=== PATIENT | female | born 1935 | race Hispanic/Latino ===

== ENCOUNTER 2017-02-28 08:58 | Inpatient (IN) | payer MEDICARE, MEDICAID ==
--- NOTE | 2017-02-28 09:32 | CT ---
NONCONTRAST HEAD CT: HISTORY: Aphagia. Right facial droop and weakness. The patient is a dialysis patient. COMPARISON: None. TECHNIQUE: A noncontrast head CT is performed from the skull base to the skull vertex. FINDINGS: No parenchymal hemorrhage. No extraaxial hematoma. No midline shift. Basilar cisterns are patent. Age appropriate brain volume. Cortical hidalgo white matter differentiation is preserved. Ventricle s and sulci are patent and symmetric. Chronic small vessel ischemic changes of the white matter are noted. There is atherosclerosis of th e carotid arteries. The calvarium is intact. Adequate aeration of the mastoid air cells. There is minimal bilateral ethmoid air cell opacification. There is near complete opacification of the visu alized left mastoid sinus. IMPRESSION: No acute intracranial process. The results of the study were discussed with Dr. Whatley on 02/28/2017 at 9:17 a.m. CODE ANGY POS: KAVON
[2017-02-28 09:45] LABS: Hematocrit 28.4 % (36.0-47.0); Mean Platelet Volume 7.1 fL (7.4-10.4); Red Blood Cell (RBC) Count 2.96 mill/uL (4.20-5.40); White Blood Cell (WBC) Count 3.9 thou/uL (4.8-10.8)
[2017-02-28 09:50] LABS: PTT 33.6 SEC (22.9-36.1); Prothrombin Time 14.4 SEC (12.0-14.7)
[2017-02-28 10:05] LABS: ALT (SGPT) 17 U/L (8-55); AST (SGOT) 29 U/L (5-34); Alkaline Phosphatase 104 U/L (40-150); Anion Gap 12 mmol/L (10-20); BUN (Urea Nitrogen) 27 mg/dL (9.8-20.1); Bilirubin, Total 0.7 mg/dL (0.2-1.2); Calc. Creatinine Clearance 0 mL/min (70-130); Calcium 8.2 mg/dL (7.8-10.44); Carbon Dioxide 30 mmol/L (23-31); Chloride 101 mmol/L (98-107); Estimated GFR-MDRD 8; Globulin 2.6 g/dL (2.4-3.5); Protein, Total 5.8 g/dL (6.0-8.3)
[2017-02-28 10:06] LABS: #Eosinphils 0.3 thou/uL (0.0-0.7); #Monocytes 0.3 thou/uL (0.11-0.59); #Neutrophils 2.4 thou/uL (1.40-6.50); %Basophils 0.2 % (0.0-1.0); %Eosinophils 8.5 % (0.0-10.0); %Lymphocytes 24.5 % (21.0-51.0); %Monocytes 6.3 % (0.0-10.0)
[2017-02-28 10:08] LABS: Troponin I Less than 0.010 ng/mL (< 0.028)
--- NOTE | 2017-02-28 11:04 | RAD ---
CHEST ONE VIEW: HISTORY: A 81-year-old female with aphagia, right facial droop, and weakness. The patient is a dialysis eduardo ent as well as a diabetic. Concern for stroke. FINDINGS: Monitor leads overly the chest. Minimal cardiomegaly. Some mild vascular congestion and increased linear and interstitial markings, some of which may well be chronic. Bony demineralization with adrián e deformity of the right humerus, proximally. No confluent pneumonia or overt edema. IMPRESSION: Minimal cardiomegaly and some mild vascular congestion without confluent pneumonia or overt edema. POS: SAMANTHAH
--- NOTE | 2017-02-28 12:22 | CON ---
DATE OF CONSULTATION: 02/28/2017 NEPHROLOGY CONSULTATION NOTE REASON FOR CONSULTATION: End-stage renal disease. HISTORY OF PRESENTING ILLNESS: This is a very pleasant 81-year-old female who had a stroke and was treated with tPA with full recovery of speech and weakness. The patient at this time denies headach e, numbness, tingling or weakness. Denies any nausea, vomiting or chest pain. PAST MEDICAL HISTORY: Significant for hypertension, end-stage renal disease, anemia, cholecystectom y, AV fistula and tunneled dialysis catheter, diabetes mellitus. HOME MEDICATIONS: List reviewed. HOSPITAL MEDICATIONS: Reviewed. ALLERGIES: Reviewed. REVIEW OF SYSTEMS: A 15-point review of systems was performed and was negative except for positives noted above. GENERAL: Weakness- HEAD: Headache- NECK: No swelling or lumps. NOSE: No epistaxis or discharge. EYES: No diplopia or pain. RESPIRATORY: Dyspnea- CARDIOVASCULAR: Chest pain- GASTROINTESTINAL: Nausea- /NAVY SENIOR OFFICER: Hematuria- MUSCULOSKELETAL: No joint pain. NEUROPSYCHIATIC SYSTEMS: No suicidal ideation. No ideation. SKIN: Denies any rash or ulcer. CONSTITUTIONAL: No fever or chills. PHYSICAL EXAMINATION: GENERAL: Patient is awake, alert. VITAL SIGNS: Afebrile, pulse 70, breathing at 16, blood pressure 155/70. GENERAL APPEARANCE AND MENTAL STATUS: Fair. HEAD/NECK: Normocephalic. Atraumatic. EYES: EOMI. No deformity. EARS: Clear. No ulcers. NOSE: Intact. No lesions. MOUTH: Clear. No discharge. THROAT: Clear. No exudate. LUNGS: Clear. No crackles. CARDIAC: S1, S2. No rub. ABDOMEN: Benign. BS+. GENITALIA/RECTUM: Jarrett absent. BACK/EXTREMITIES: Edema 0+ Ulcer- NEUROLOGICAL: Alert and motor intact. SKIN: Rash- Bruise- LYMPHATICS: Edema- Ulcer- LABORATORY DATA: Potassium is 3.6 and hemoglobin is 9.1. ASSESSMENT AND RECOMMENDATIONS: 1. Stage 6 chronic kidney disease. No indication for dialysis. 2. Hypertension, stable. 3. Anemia, stable. We will plan dialysis tomorrow gently. 4. Please note the patient has cerebrovascular accident with recovery management per primary team.
[2017-02-28 12:33] VITALS: BMI 21.9
[2017-02-28] MEDS ORDERED: Artificial Tear Sol 15 ML BOT EA EYE PRN (12:49)
--- NOTE | 2017-02-28 13:23 | HP ---
DATE OF ADMISSION: 02/28/2017 PRIMARY CARE PHYSICIAN: Evelyn Rees M.D. CHIEF COMPLAINT: Stroke-like symptoms. CODE STATUS: FULL CODE. SURROGATE DECISION-MAKER: The patient makes her own decisions with the help of her family. HISTORY OF PRESENT ILLNESS: The patient is a 81-year-old female with hypertension, diabetes mellitu s type 2, end-stage renal disease on hemodialysis, who presented to the hospital with sudden onset o f stroke-like symptoms that started around 8:30 a.m. She started having double vision along with ri ght-sided weakness. Her NIH in the emergency room was around 10. She had difficulty answering ques tions, along with expressive aphasia. She also had a facial droop. Initial CT scan in the emergenc y room was negative for acute findings. She underwent a CT angiogram of the head and neck that was essentially negative. She received tPA in the emergency room. At the time of my interview, the katherine tee's NIH is 1. She denies any double vision, blurring of vision at this time. She has some diffi culty opening her right eye. She denies any new focal deficit at this time. No chest pain, shortne ss of breath, palpitations, seizure or headache reported. No recent trauma reported. PAST MEDICAL HISTORY: 1. End-stage renal disease on hemodialysis followed by Dr. Merlos. 2. Diabetes mellitus type 2. 3. Hypertension. 4. Chronic anemia. 5. Mild dementia. 6. Gait instability. 7. History of fall. PAST SURGICAL HISTORY: 1. Dialysis access. 2. Cholecystectomy in 2005. 3. Eye surgeries. ALLERGIES: The patient is allergic to Tradjenta. CURRENT HOME MEDICATIONS: The patient does not remember any of her home medications. We will try t o obtain an accurate list of medications from the pharmacy. It is unclear whether she is on aspirin . SOCIAL HISTORY: The patient currently lives at home with her family. She denies any history of smo peggy, alcohol or drug use. FAMILY HISTORY: High blood pressure and diabetes in several family members. Father with heart dise ase. REVIEW OF SYSTEMS: The following complete review of systems was negative, unless otherwise mentione d in the HPI or below: Constitutional: Weight loss or gain, ability to conduct usual activities. Skin: Rash, itching. Eyes: Double vision, pain. ENT/Mouth: Nose bleeding, neck stiffness, pain, tenderness. Cardiovascular: Palpitations, dyspnea on exertion, orthopnea. Respiratory: Shortness of breath, wheezing, cough, hemoptysis, fever or night sweats. Gastrointestinal: Poor appetite, abdominal pain, heartburn, nausea, vomiting, constipation, or diar dirk. Genitourinary: Urgency, frequency, dysuria, nocturia. Musculoskeletal: Pain, swelling. Neurologic/Psychiatric: Anxiety, depression. Allergy/Immunologic: Skin rash, bleeding tendency. PHYSICAL EXAMINATION: VITAL SIGNS: Showed temperature of 97.4, respiration 19, pulse of 60, blood pressure 150/59 with O2 saturation 97% on room air. GENERAL: A 81-year-old female in no apparent distress. Denies any pain. HEENT: Head, atraumatic and normocephalic. Sclerae are anicteric. Moist mucous membranes. No ora l lesion. NECK: Supple, no JVD, no carotid bruit. LUNGS: Clear to auscultation bilaterally. HEART: S1, S2 present. Regular rate and rhythm. 2/6 systolic murmur over the mitral area. ABDOMEN: Soft, nontender, bowel sounds present. EXTREMITIES: No edema or calf tenderness. NEUROLOGIC: Cranial nerves II-XII were normal on examination. Power was 5/5 in all extremities. F neuwg-nq-fqjy and fflx-bw-vbov test was normal. Sensation to touch was normal bilaterally. PSYCHIATRY: Alert, awake, and oriented x3. SKIN: Warm and dry. LYMPH NODES: No palpable lymph nodes in the neck. PERIPHERAL VASCULAR: Radial pulses palpable bilaterally. MUSCULOSKELETAL: No joint swelling or tenderness. SKIN: Warm and dry. LABORATORY FINDINGS: CBC showed WBC 3.9, hemoglobin 9.5, hematocrit 28.4, and platelet 118. PT, INR, PTT normal range. BUN 27, creatinine 5.23 with potassium 3.6, albumin of 3.2. Troponins were normal. Chest x-ray by my review was negative for infiltrate. EKG by my review showed normal sinus rhythm w ith nonspecific ST-T wave changes. IMPRESSION: 1. Acute cerebrovascular accident status post tPA. 2. End-stage renal disease on hemodialysis. 3. Diabetes mellitus type 2. 4. Hypertension. 5. Dementia. 6. History of fall/gait instability. 7. Hyperparathyroidism. 8. Chronic anemia, probably secondary to renal insufficiency. 9. Mild thrombocytopenia. 10. Mild protein-calorie malnutrition. PLAN: The patient will be monitored in the Intensive Care Unit. Post-tPA protocol will be activate d. Neurology will be consulted. We will get echocardiogram. CT angiogram of the neck was done, re port is pending at this time. CTA of the head was normal. We will get an MRI of the brain. We koby l start antiplatelet agent 24 hours after the tPA. It is unclear whether the patient is on aspirin or any other antiplatelet agent. We will get frequent neuro checks. Insulin sliding scale. Nephro logy consult for dialysis management. Plan of care was discussed with the patient. She stated understanding. We will discuss the plan wi th the family when they arrive.
[2017-02-28] MEDS ORDERED: Senokot 8.6 MG TAB PO PRN (14:02)
[2017-02-28] MEDS ORDERED: Bisacodyl 10 MG SUPP PR PRN (14:02)
[2017-02-28] MEDS ORDERED: Ondansetron ODT 4 MG TAB PO PRN (14:02)
[2017-02-28] MEDS ORDERED: Ondansetron HCl/PF 4 MG/2 ML Vial IVP PRN (14:02)
[2017-02-28] MEDS ORDERED: Labetalol HCl 100 MG/20 ML VIAL SLOW IVP PRN (14:11)
[2017-02-28] MEDS ORDERED: Dextrose 50% Abboject 50 ML SYRINGE SLOW IVP PRN (14:14)
[2017-02-28] MEDS ORDERED: Dextrose 5% in Water 1,000 ML IV PRN (14:14)
[2017-02-28] MEDS ORDERED: Insulin Regular 300 UNITS/3 ML VIAL SC PRN ×2 (14:14)
[2017-02-28] MEDS ORDERED: Eucerin (Mineral Oil/Petrolatum,White) 30 gm Jar TOP PRN (14:15)
[2017-02-28] MEDS ORDERED: Nitroglycerin 2% Ointment 1 INCH/1 GM Packet TOP PRN (14:15)
[2017-02-28] MEDS ORDERED: Polyethylene Glycol 3350 17 GM Packet PO PRN (14:15)
[2017-02-28] MEDS ORDERED: Loratadine 10 MG TAB PO PRN (14:15)
[2017-02-28] MEDS ORDERED: hydrALAZINE 20 MG/ML VIAL SLOW IVP PRN (14:15)
[2017-02-28] MEDS ORDERED: ISOVUE-370 76%-LOCM 1 ML ONE (15:23)
--- NOTE | 2017-02-28 19:05 | CON ---
DATE OF SERVICE: 02/28/2017 SERVICE: Pulmonary Medicine. REASON FOR CONSULTATION: ICU patient. HISTORY OF PRESENT ILLNESS: The patient is a 81-year-old female with past medical history significant for essentially nothing other than end-stage renal disease and hypertension. She is in her usual state of health when she had an abrupt onset of neurologic changes. It affected the right side of her body and speech. She presented to the emergency department where she was given tPA. A fter roughly an hour, she had full resolution of the symptoms. She currently denies any shortness o f breath, fevers, chills, nausea, vomiting or diarrhea. She typically dialyzes today, but this will be postponed for 24 hours while she recovers from this acute process. PAST MEDICAL HISTORY: 1. End-stage renal disease, on hemodialysis Sunday, Sunday, and Sunday. 2. Type 2 diabetes mellitus. 3. Hypertension. 4. Chronic anemia. 5. Dementia, mild. 6. History of multiple falls. PAST SURGICAL HISTORY: 1. Dialysis access. 2. Cholecystectomy in 2005. 3. Eye surgeries, multiple. FAMILY HISTORY: Noncontributory. SOCIAL HISTORY: Negative for tobacco, alcohol or illicit drug use. She lives with her family at [facility]. She has no exposure to chemicals, dust, or asbestos. ALLERGIES: TRADJENTA. MEDICATIONS: List of inpatient medications was reviewed. No updates were made at this time. REVIEW OF SYSTEMS: General, head, ears, eyes, nose, throat, cardiovascular, respiratory, GI, , mu sculoskeletal, neurologic and skin is negative except as mentioned in the HPI. PHYSICAL EXAMINATION: VITAL SIGNS: Afebrile, pulse 61, blood pressure 109/40, respirations 15, and saturation 99% on room air. GENERAL: Patient is awake, alert, in no apparent distress. LUNGS: Excellent air entry with no prolonged expiratory phase, wheezing or crackles. HEART: Normal rate, regular. ABDOMEN: Soft, nontender, nondistended, bowel sounds positive. MUSCULOSKELETAL: No cyanosis or clubbing. No pitting in the bilateral lower extremities. NEUROLOGIC: Grossly nonfocal. LABORATORY DATA: WBC 3.9, hemoglobin 9.5, and platelets 118,000. Differential remains normal. INR 1.1. Basic metabolic profile and liver function studies are unremarkable except for creatinine of 5.23. Cardiac enzymes x1 are negative. Glucose falls within the normal limits. IMAGIN. Chest x-ray demonstrates no acute cardiopulmonary abnormality. 2. CT of the brain demonstrates no evidence of acute intracranial abnormality. Certainly no blood. 3. CT of the [place] demonstrates no acute intracranial process. ASSESSMENT: 1. Stroke, status post tPA administration. 1. End-stage renal disease. 2. Dementia. PLAN: The patient will remain in the ICU for observation for a period of 24 hours. Neuro checks wi ll be done very frequently. Pulmonary or Critical Care will continue to follow while she remains in this location. At this point, there is no need for aggressive maneuvers like intubation.
[2017-02-28] MEDS: Docusate 100 MG CAP PO SCH (20:01)
[2017-02-28] MEDS: Famotidine 20 MG TAB PO SCH (20:01)
[2017-02-28] MEDS ORDERED: FLU VACC TS2017-18 (>65YR) 0.5 ML SYRINGE IM ONE (21:00)
[2017-02-28] MEDS: Acetaminophen 325 MG TAB PO PRN (21:03)
--- NOTE | 2017-03-01 06:11 | CON ---
DATE OF CONSULTATION: 02/28/2017 REFERRING PROVIDER: Dr. Kenton [facility]. REASON FOR CONSULTATION: Acute onset of expressive aphasia and right-sided weakness, stroke alert w as initiated. HISTORY OF PRESENT ILLNESS: Ms. Mistry is a 81-year-old female who has been consulted f or evaluation of acute onset of expressive aphasia and right-sided weakness, stroke alert was initia janey. I had initially received a phone call from the ER physician, Dr. Matthew Whatley Jr. He was menti oned to me at that time that the patient was supposed to be due for dialysis on today around 8:30 in the morning. She was noted by family members to have sudden onset of expressive aphasia and right- sided weakness for which she was brought to the [facility]. After arrival here, her stroke scale was noted to be 9. According to the ER physician on his repeat exam, her NIH stroke sc ginna was 4 with mild expressive aphasia. He also mentioned that when the patient's blood pressure bhandari d dropped somewhat, her NIH stroke scale did get worse. Patient has no prior history of stroke. It was felt that patient had met all the exclusion and inclusion criteria for the tPA and the tPA was administered after the CT scan of the head was being negative and was found to be negative for acute intracranial abnormality. PAST MEDICAL HISTORY: Significant for hypertension; diabetes; end-stage renal disease, on dialysis; chronic anemia; mild dementia; gait instability; history of fall. PAST SURGICAL HISTORY: Significant for dialysis access placement, cholecystectomy, eye surgeries. CURRENT MEDICATIONS: Please review MAR. ALLERGIES: Includes TRADJENTA. SOCIAL HISTORY: She currently lives with her family. She does not smoke cigarettes or use alcohol or use illicit drugs. FAMILY HISTORY: Significant for high blood pressure and diabetes in several family members. REVIEW OF SYSTEMS: As mentioned in the HPI, otherwise negative. PHYSICAL EXAMINATION: VITAL SIGNS: Blood pressure of 154/66, pulse of 63, temperature of 98.5, respirations of 20, O2 sat urations of 95% on room air. GENERAL: Well-developed, well-nourished female, in no apparent distress. RESPIRATORY: Clear to auscultation bilaterally. CARDIOVASCULAR: Regular rate and rhythm. NEUROLOGIC: NIH stroke scale on my evaluation is noted to be 0. There is a language barrier as she does not speak Lithuanian; however, according to nurse her family had did mention that his speech was back to her normal self. Cranial nerves: Pupils are 3 mm and reactive. Visual humphrey are full to threat. Extraocular muscles are intact. Face is symmetric. Motor exam showed normal tone and bulk with a 5/5 strength in both upper and lower extremities. There is no pronator drift noted. Sensor y: Sensation appears intact. Coordination intact to equelp-gdtu-rnycld tapping bilaterally. LABORATORY DATA: Reviewed, which included CBC, coag panel, CMP, which is significant for WBC of 3.9 , hemoglobin 9.5, hematocrit of 28.4. BUN of 27, creatinine of 5.23. IMAGING STUDIES: CT of the head without contrast was reviewed, which showed no acute intracranial a bnormality. CT angiogram of the head and neck were reviewed, which showed no acute intracranial or extracranial vascular abnormality. IMPRESSION: Acute left ischemic infarct, status post IV tPA. At this time, I would recommend continuing current medical management. I would require holding off on any antiplatelets or anticoa gulation therapy for at least 24 hours post-tPA. I will also recommend consulting PT, OT, and speec h therapy. I will obtain an MRI of the brain without contrast in the morning tomorrow. Continue stein pportive care. Thank you for consultation.
[2017-03-01] MEDS: Acetaminophen 325 MG TAB PO PRN ×2 (08:11→18:34)
[2017-03-01] MEDS: Famotidine 20 MG TAB PO SCH ×2 (08:11→20:47)
[2017-03-01] MEDS: Docusate 100 MG CAP PO SCH ×2 (08:12→20:47)
--- NOTE | 2017-03-01 10:38 | PRG ---
DATE OF SERVICE: 03/01/2017 SUBJECTIVE: This 81-year-old female being seen for end-stage renal disease. Patient denies any [place], vomiting or chest pain. PHYSICAL EXAMINATION: GENERAL: Patient is awake, alert. VITAL SIGNS: Afebrile, pulse 62, breathing at 16, blood pressure 153/54. GENERAL APPEARANCE AND MENTAL STATUS: Fair. HEAD/NECK: Normocephalic. Atraumatic. EYES: EOMI. No deformity. EARS: Clear. No ulcers. NOSE: Intact. No lesions. MOUTH: Clear. No discharge. THROAT: Clear. No exudate. LUNGS: Clear. No crackles. CARDIAC: S1, S2. No rub. ABDOMEN: Benign. BS+. GENITALIA/RECTUM: Jarrett absent. BACK/EXTREMITIES: Edema 0+ Ulcer- NEUROLOGICAL: Alert and motor intact. SKIN: Rash- Bruise- LYMPHATICS: Edema- Ulcer- LABORATORY DATA: Hemoglobin is 9.5 yesterday, no labs today. ASSESSMENT AND RECOMMENDATIONS: 1. Stage 6 chronic disease. We will plan hemodialysis based on labs today. 2. Hypertension, stable. 3. Anemia. We will check hemoglobin 4. Status post cerebrovascular accident.
--- NOTE | 2017-03-01 10:57 | PRG ---
DATE OF SERVICE: 03/01/2017 SERVICE: Pulmonary Medicine. INTERVAL HISTORY: The patient is doing fantastic from a respiratory standpoint. She denies any fev ers, chills, nausea or vomiting. There were no overnight events. She has no specific complaints th is morning. She has been up out of bed and is looking forward to getting out of ICU. PHYSICAL EXAMINATION: VITAL SIGNS: Afebrile, pulse 62, blood pressure 153/54, respirations 16, saturation 99% on room air . GENERAL: The patient is awake, alert, no apparent distress. LUNGS: Excellent air entry with no prolonged expiratory phase, wheezing, rhonchi or crackles. HEART: Normal rate, regular. ABDOMEN: Soft, nontender, nondistended. Bowel sounds positive. MUSCULOSKELETAL: No cyanosis or clubbing. No pitting in the bilateral lower extremities. NEUROLOGIC: Grossly nonfocal. She has a little bit of ptosis on the right, but she has had multipl e eye surgeries on that side, apparently this is chronic. LABORATORY DATA: Blood sugars ranged from 75-126. IMAGING: Echocardiogram demonstrates normal ejection fraction. There is no evidence of PFO, intrac ardiac thrombi, or masses. ASSESSMENT: 1. Cerebrovascular accident, status post tPA administration roughly 24 hours ago. 2. End-stage renal disease. 3. Dementia. PLAN: At this point, the patient is stable for transition out of the ICU to the floor. Pulmonary w ill continue to follow for 1 additional day. She did not suffer any complications associated with t PA administration.
[2017-03-01 11:48] LABS: Hematocrit 29.2 % (36.0-47.0)
[2017-03-01 11:49] LABS: #Eosinphils 0.4 thou/uL (0.0-0.7); #Lymphocytes 1.6 thou/uL (1.20-3.40); #Monocytes 0.3 thou/uL (0.11-0.59); #Neutrophils 3.2 thou/uL (1.40-6.50); %Basophils 0.7 % (0.0-1.0); %Eosinophils 7.9 % (0.0-10.0); %Monocytes 5.4 % (0.0-10.0); Hematocrit 28.9 % (36.0-47.0); Mean Platelet Volume 7.4 fL (7.4-10.4); Red Blood Cell (RBC) Count 3.06 mill/uL (4.20-5.40); White Blood Cell (WBC) Count 5.6 thou/uL (4.8-10.8)
[2017-03-01 12:09] LABS: Anion Gap 10 mmol/L (10-20); Anion Gap 11 mmol/L (10-20); BUN (Urea Nitrogen) 34 mg/dL (9.8-20.1); BUN/Creatinine Ratio 5.63; Calc. Creatinine Clearance 6 mL/min (70-130); Calcium 8.2 mg/dL (7.8-10.44); Carbon Dioxide 29 mmol/L (23-31); Carbon Dioxide 30 mmol/L (23-31); Chloride 99 mmol/L (98-107); Cholesterol 118 mg/dl (< 200 Desired); Estimated GFR-MDRD 7; LDL Cholesterol, Calculated 60 mg/dL; Phosphorus 4.1 mg/dL (2.3-4.7)
[2017-03-01] MEDS: Aspirin 325 mg Enteric Coated Tablet PO SCH (13:41)
--- NOTE | 2017-03-01 14:50 | MRI ---
MRI BRAIN WITHOUT CONTRAST: DATE: 03/01/17 HISTORY: Right facial droop and weakness. FINDINGS: No restricted diffusion is seen. No evidence of acute infarct, acute hemorrhage, midline shift, or abnormal extra-axial fluid collections are seen. There are a few foci of T2 prolongation in the francisco j ventricular white matter consistent with mild chronic small vessel ischemic disease. A small focus o f decreased intensity in the left thalamus is consistent with hemosiderin representing old hemorrhag e. Hemosiderin staining due to remote hemorrhage is also seen in the left posterior parietal lobe. T here is mucosal disease in the paranasal sinuses and fluid in the left mastoid air cells. IMPRESSION: No evidence of acute intracranial process. POS: [facility]
[2017-03-01] MEDS: cloNIDine 0.1 MG TAB PO PRN ×2 (18:51→23:20)
--- NOTE | 2017-03-01 19:54 | PRG ---
DATE OF SERVICE: 03/01/2017 SUBJECTIVE: Ms. Mistry is a pleasant 81-year-old female who presented with the acute on set of right-sided weakness and aphasia. She is status post IV TPA. Today, her daughter is present at bedside who reports that her symptoms have almost completely resolved. She is talking more kalen rly. She does not have any numbness, tingling or weakness. She has not complained of any headache, chest pain, palpitation, lightheadedness or dizziness. PHYSICAL EXAMINATION: VITAL SIGNS: Blood pressure of 193/70, pulse of 64, temperature of 97.7, respirations of 16, O2 sat s of 96% on room air. GENERAL: Well-developed, well-nourished female in no apparent distress. RESPIRATORY: Clear to auscultation bilaterally. CARDIOVASCULAR: Regular, mild wheezing noted in both sides. NEUROLOGIC: Mental status: The patient is awake, alert, oriented x3. Speech and language appears normal. Cranial nerves: Pupils are 3 mm and reactive. Visual humphrey are full to threat. Extraocu lar muscles are intact. Face is symmetric. Motor exam showed normal tone and bulk with 5/5 strengt h in both upper and lower extremities. LABORATORY DATA: Reviewed, which included CBC, BMP, lipid profile, coag panel, which is significant for hemoglobin 9.7, hematocrit of 28.9. Sodium of 135, BUN of 34, creatinine of 6.14, total choles terol 118, LDL of 60, HDL of 42, and triglycerides of 82, otherwise unremarkable. IMAGING STUDIES: MRI brain without contrast was reviewed, which showed no acute intracranial abnorm ality. IMPRESSION: 1. Left middle cerebral artery distribution ischemic stroke, resolved status post TPA. 2. Malignant hypertension. 3. End-stage renal disease on dialysis. ASSESSMENT AND PLAN: Ms. Mistry is a pleasant 81-year-old female who presented with an acute onset of right hemiparesis and aphasia. Her symptoms have now resolved post-TPA. At this marcy e, I would recommend continuing current medical management. I would recommend lowering her blood pr essure to goal of 120 to 140 systolic and 80 to 90 diastolic. The patient can be started on aspirin 325 mg daily for secondary stroke prevention. No further neurological workup needed from my standp oint. Thank you for the consultation.
[2017-03-01] MEDS: Heparin 5,000 UNITS/ML VIAL SC SCH (20:48)
--- NOTE | 2017-03-01 20:51 | PDOC.PN ---
- Subjective Encounter Start Date: 03/01/17 Encounter Start Time: 16:00 Patient seen and examined. No new complaints. No overnight events. No new focal deficits. - Objective Resuscitation Status: Resuscitation Status FULL:Full Resuscitation MAR Reviewed: Yes Vital Signs & Weight: Vital Signs (12 hours) Temp Pulse Pulse Pulse Resp BP BP 03/01/17 19:35 98.4 F 67 20 03/01/17 18:51 193/70 H 03/01/17 15:45 97.7 F 64 16 03/01/17 15:29 61 62 160/63 H 03/01/17 12:00 98 F BP BP Pulse Ox Pulse Ox Pulse Ox 03/01/17 19:35 190/77 H 95 03/01/17 18:51 03/01/17 15:45 184/65 H 96 03/01/17 15:29 151/66 H 100 99 03/01/17 12:00 Weight Weight 112 lb 6.972 oz Most Recent Monitor Data Heart Rate from ECG 64 NIBP 160/60 NIBP BP-Mean 106 Respiration from ECG 16 SpO2 100 I&O: 02/28/17 03/01/17 03/02/17 06:59 06:59 06:59 Intake Total 590 600 Output Total 0 Balance 590 600 Result Diagrams: 03/01/17 11:40 03/01/17 11:40 Additional Labs: Accuchecks 03/01/17 03/01/17 03/01/17 16:57 11:38 07:32 POC Glucose 119 H 123 H 86 03/01/17 02/28/17 06:24 20:58 POC Glucose 76 126 H Radiology Reviewed by me: Yes (MRI brain - neg) EKG Reviewed by me: Yes (Tele SR) Phys Exam - Physical Examination Constitutional: NAD HEENT: PERRLA, moist MMs Respiratory: no wheezing, no rales, no rhonchi Symmetrical Cardiovascular: RRR, no rub no heaves/pulsations Gastrointestinal: soft, non-tender, no distention, positive bowel sounds Musculoskeletal: no edema, pulses present Neurological: non-focal, normal sensation, moves all 4 limbs Psychiatric: normal affect, A&O x 3 Dx/Plan - Plan IMPRESSION: 1. Acute cerebrovascular accident - resolved after tPA. started on ASA 2. End-stage renal disease on hemodialysis. Nephrology following 3. Diabetes mellitus type 2. on sliding scale 4. Hypertension. 5. Dementia. 6. History of fall/gait instability. 7. Hyperparathyroidism. 8. Chronic anemia, probably secondary to renal insufficiency. 9. Mild thrombocytopenia. 10. Mild protein-calorie malnutrition. PLAN: * Cont ASA * Neurology following * Cont to monitor * Stroke team following * Dialysis in AM per Nephrology * Cont current meds as below. * Will resume home meds Review of Systems - Review of Systems Respiratory: negative: Cough, Dry, Shortness of Breath, Hemoptysis, SOB with Excertion, Pleuritic Pain, Sputum, Wheezing Cardiovascular: negative: Chest Pain, Palpitations, Orthopnea, Paroxysmal Noc. Dyspnea, Edema, Light Headedness, Other Gastrointestinal: negative: Nausea, Vomiting, Abdominal Pain, Diarrhea, Constipation, Melena, Hematochezia, Other - Medications/Allergies Allergies/Adverse Reactions: Allergies Allergy/AdvReac Type Severity Reaction Status Date / Time linagliptin [From Tradjenta] Allergy Intermediate Rash Verified 02/28/17 12:34 Medications: Current Medications Acetaminophen (Tylenol) 650 mg PO Q4H PRN PRN Reason: Headache/Fever or Pain Last Admin: 03/01/17 18:34 Dose: 650 mg Albuterol/Ipratropium (Duoneb) 3 ml NEB [id number] PRN PRN Reason: SOB &/or Wheezing Artificial Tears (Tears Renewed 15ml Bottle) 0 drop EA EYE PRN PRN PRN Reason: Dry Eyes Aspirin (Ecotrin) 325 mg PO 1200 [facility] Last Admin: 03/01/17 13:41 Dose: 325 mg Bisacodyl (Dulcolax) 10 mg ND Q24H PRN PRN Reason: Constipation Dextrose/Water (Dextrose 50%) 25 gm SLOW IVP PRN PRN PRN Reason: Hypoglycemia Docusate Sodium (Colace) 100 mg PO BID [facility] Last Admin: 03/01/17 08:12 Dose: Not Given Famotidine (Pepcid) 20 mg PO BID [facility] Last Admin: 03/01/17 08:11 Dose: 20 mg Glucagon (Glucagon) 1 mg IM PRN PRN PRN Reason: Hypoglycemia Heparin Sodium (Porcine) (Heparin) 5,000 units SC BID [facility] Hydralazine HCl (Apresoline) 10 mg SLOW IVP Q4H PRN PRN Reason: SBP Greater Than 180 Dextrose/Water (D5w) 1,000 mls @ 0 mls/hr IV .Q0M PRN; As Directed PRN Reason: Hypoglycemia Insulin Human Regular (Humulin R) 0 units SC .MILD SLIDING SCALE PRN PRN Reason: Mild Correctional Scale Insulin Human Regular (Humulin R) 0 units SC .BEDTIME SLIDING SC PRN PRN Reason: Bedtime Correctional Scale Labetalol HCl (Normodyne) 10 mg SLOW IVP Q2H PRN PRN Reason: SBP > 180 Loratadine (Claritin) 10 mg PO DAILYPRN PRN PRN Reason: Sinus Symptoms Mineral Oil/White Petrolatum (Eucerin Cream) 0 gm TOP BIDPRN PRN PRN Reason: Dry Skin Nitroglycerin (Nitro-Bid 2% Ointment) 0.5 inch TOP Q8HR PRN PRN Reason: SBP Greater Than 180 Ondansetron HCl (Zofran Odt) 4 mg PO Q6H PRN PRN Reason: Nausea/Vomiting Ondansetron HCl (Zofran) 4 mg IVP Q6H PRN PRN Reason: Nausea/Vomiting Polyethylene Glycol (Miralax) 17 gm PO DAILY PRN PRN Reason: Constipation Senna (Senokot) 2 tab PO HSPRN PRN PRN Reason: Constipation
--- NOTE | 2017-03-02 09:15 | PRG ---
DATE OF SERVICE: 03/02/2017 SUBJECTIVE: A 81-year-old female being seen for end-stage renal disease. Patient denies any nausea , vomiting or chest pain. PHYSICAL EXAMINATION: GENERAL: Patient is awake, alert. VITAL SIGNS: Afebrile, pulse 62, breathing at 16, blood pressure 162/88. GENERAL APPEARANCE AND MENTAL STATUS: Fair. HEAD/NECK: Normocephalic. Atraumatic. EYES: EOMI. No deformity. EARS: Clear. No ulcers. NOSE: Intact. No lesions. MOUTH: Clear. No discharge. THROAT: Clear. No exudate. LUNGS: Clear. No crackles. CARDIAC: S1, S2. No rub. ABDOMEN: Benign. BS+. GENITALIA/RECTUM: Jarrett absent. BACK/EXTREMITIES: Edema 0+ Ulcer- NEUROLOGICAL: Alert and motor intact. SKIN: Rash- Bruise- LYMPHATICS: Edema- Ulcer- LABORATORY DATA: Show hemoglobin is 9.7. ASSESSMENT AND RECOMMENDATIONS: 1. Stage 6 chronic kidney disease. We will plan dialysis today. 2. Hypertension. We will plan gentle ultrafiltration. 3. Anemia, stable. 4. Secondary hyperparathyroidism. Continue low phosphorus diet.
[2017-03-02] MEDS: Docusate 100 MG CAP PO SCH ×3 (09:26→20:20)
[2017-03-02] MEDS: Famotidine 20 MG TAB PO SCH ×2 (09:26→20:15)
[2017-03-02] MEDS: cloNIDine 0.1 MG TAB PO PRN (09:27)
[2017-03-02] MEDS: Heparin 5,000 UNITS/ML VIAL SC SCH (09:27)
--- NOTE | 2017-03-02 10:29 | PRG ---
DATE OF SERVICE: 03/02/2017 SERVICE: Pulmonary Medicine. INTERVAL HISTORY: The patient is doing outstanding from a respiratory standpoint. She denies any c urrent fevers, chills, nausea or vomiting. She has essentially returned to her usual state of healt h. She has no residual neurologic deficits. She has been out of the ICU for 1 day now. She has no respiratory issues. There were no overnight events. PHYSICAL EXAMINATION: VITAL SIGNS: Afebrile, pulse 66, blood pressure 185/69, respirations 16, saturation 94% on room air . GENERAL: Patient is awake, alert, in no apparent distress. LUNGS: Decent air entry with no prolonged expiratory phase, wheezing, rhonchi or crackles. HEART: Normal rate, regular. ABDOMEN: Soft, nontender, and nondistended. Bowel sounds positive. MUSCULOSKELETAL: No cyanosis or clubbing. There is trace to 1+ pitting in the bilateral lower extr emities. GENITOURINARY: No Jarrett. NEUROLOGIC: Grossly nonfocal. LABORATORY DATA: Blood sugars ranged from 119-140 ASSESSMENT: 1. Cerebrovascular accident, status post tPA administration, 48 hours ago. 2. End-stage renal disease. 3. Dementia. PLAN: The patient has no further requirements for inpatient Pulmonary or Critical Care continue. A s such, we will sign off. Please call with additional questions or concerns moving forward.
[2017-03-02] MEDS: Acetaminophen 325 MG TAB PO PRN (10:42)
[2017-03-02] MEDS ORDERED: hydrALAZINE 25 MG TAB PO SCH (10:45)
[2017-03-02] MEDS ORDERED: Amlodipine 5 MG TAB PO SCH (10:45)
[2017-03-02] MEDS ORDERED: Carvedilol 25 MG TAB PO SCH (10:45)
[2017-03-02] MEDS ORDERED: Lisinopril 20 MG TAB PO SCH (10:45)
[2017-03-02] MEDS: Aspirin 325 mg Enteric Coated Tablet PO SCH (11:26)
[2017-03-02] MEDS: hydrALAZINE 25 MG TAB PO SCH ×2 (15:27→20:15)
[2017-03-02] MEDS: Carvedilol 25 MG TAB PO SCH (16:41)
[2017-03-02] MEDS ORDERED: Atorvastatin Calcium 10 MG TAB PO SCH (21:00)
--- NOTE | 2017-03-02 21:32 | PDOC.PN ---
- Subjective Encounter Start Date: 03/02/17 Encounter Start Time: 16:00 Patient seen and examined. No new complaints. No overnight events. No new focal deficits. - Objective Resuscitation Status: Resuscitation Status FULL:Full Resuscitation MAR Reviewed: Yes Vital Signs & Weight: Vital Signs (12 hours) Temp Pulse Pulse Pulse Pulse Resp BP 03/02/17 20:15 64 174/68 H 03/02/17 19:26 98.1 F 64 16 03/02/17 15:33 97.9 F 63 16 03/02/17 15:27 169/50 H 03/02/17 13:47 66 64 64 03/02/17 12:30 03/02/17 11:33 98.3 F 69 16 03/02/17 11:28 70 203/72 H 03/02/17 11:27 70 203/72 H BP BP BP BP BP Pulse Ox 03/02/17 20:15 03/02/17 19:26 174/68 H 94 L 03/02/17 15:33 172/109 H 92 L 03/02/17 15:27 03/02/17 13:47 183/67 H 181/68 H 144/61 H 03/02/17 12:30 186/71 H 03/02/17 11:33 203/75 H 93 L 03/02/17 11:28 03/02/17 11:27 Weight Weight 112 lb 6.972 oz Most Recent Monitor Data Heart Rate from ECG 64 NIBP 160/60 NIBP BP-Mean 106 Respiration from ECG 16 SpO2 100 I&O: 03/01/17 03/02/17 03/03/17 06:59 06:59 06:59 Intake Total 590 1080 490 Output Total 0 2400 Balance 590 1080 -1910 Result Diagrams: 03/01/17 11:40 03/01/17 11:40 Additional Labs: Accuchecks 03/02/17 03/02/17 17:07 05:03 POC Glucose 151 H 121 H EKG Reviewed by me: Yes (Tele SR) Phys Exam - Physical Examination Constitutional: NAD Respiratory: no wheezing, no rhonchi Cardiovascular: RRR, no rub Gastrointestinal: soft, non-tender, positive bowel sounds Musculoskeletal: no edema Neurological: moves all 4 limbs Dx/Plan - Plan DVT proph w/SCDs IMPRESSION: 1. Acute cerebrovascular accident - resolved after tPA. on ASA 2. End-stage renal disease on hemodialysis. Nephrology following 3. Diabetes mellitus type 2. on sliding scale 4. Hypertension. not well controlled 5. Dementia. 6. History of fall/gait instability. 7. Hyperparathyroidism. 8. Chronic anemia, probably secondary to renal insufficiency. 9. Mild thrombocytopenia. 10. Mild protein-calorie malnutrition. PLAN: * Cont ASA/Statins * Cont current BP meds * Neurology following * Cont to monitor * Stroke team following * s/p Dialysis * Cont current meds as below. * Will resume home meds Review of Systems - Review of Systems Respiratory: negative: Cough, Dry, Shortness of Breath, Hemoptysis, SOB with Excertion, Pleuritic Pain, Sputum, Wheezing Cardiovascular: negative: Chest Pain, Palpitations, Orthopnea, Paroxysmal Noc. Dyspnea, Edema, Light Headedness, Other Gastrointestinal: negative: Nausea, Vomiting, Abdominal Pain, Diarrhea, Constipation, Melena, Hematochezia, Other - Medications/Allergies Allergies/Adverse Reactions: Allergies Allergy/AdvReac Type Severity Reaction Status Date / Time linagliptin [From Tradjenta] Allergy Intermediate Rash Verified 02/28/17 12:34 Medications: Current Medications Acetaminophen (Tylenol) 650 mg PO Q4H PRN PRN Reason: Headache/Fever or Pain Last Admin: 03/02/17 10:42 Dose: 650 mg Albuterol/Ipratropium (Duoneb) 3 ml NEB [id number] PRN PRN Reason: SOB &/or Wheezing Amlodipine Besylate (Norvasc) [address] [facility] Artificial Tears (Tears Renewed 15ml Bottle) 0 drop EA EYE PRN PRN PRN Reason: Dry Eyes Aspirin (Ecotrin) [address] [facility] Last Admin: 03/02/17 11:26 Dose: 325 mg Atorvastatin Calcium (Lipitor) [address] [facility] Last Admin: 03/02/17 20:15 Dose: 10 mg Bisacodyl (Dulcolax) 10 mg MD Q24H PRN PRN Reason: Constipation Carvedilol (Coreg) 25 mg PO BID[facility] Last Admin: 03/02/17 16:41 Dose: 25 mg Dextrose/Water (Dextrose 50%) 25 gm SLOW IVP PRN PRN PRN Reason: Hypoglycemia Docusate Sodium (Colace) [address] [facility] Last Admin: 03/02/17 20:20 Dose: Not Given Famotidine (Pepcid) [address] [facility] Last Admin: 03/02/17 20:15 Dose: 20 mg Glucagon (Glucagon) 1 mg IM PRN PRN PRN Reason: Hypoglycemia Hydralazine HCl (Apresoline) 10 mg SLOW IVP Q4H PRN PRN Reason: SBP Greater Than 180 Hydralazine HCl (Apresoline) [address] [facility] Last Admin: 03/02/17 20:15 Dose: 100 mg Dextrose/Water (D5w) 1,000 mls @ 0 mls/hr IV .Q0M PRN; As Directed PRN Reason: Hypoglycemia Insulin Human Regular (Humulin R) 0 units SC .MILD SLIDING SCALE PRN PRN Reason: Mild Correctional Scale Insulin Human Regular (Humulin R) 0 units SC .BEDTIME SLIDING SC PRN PRN Reason: Bedtime Correctional Scale Labetalol HCl (Normodyne) 10 mg SLOW IVP Q2H PRN PRN Reason: SBP > 180 Lisinopril (Zestril) [address] [facility] Loratadine (Claritin) 10 mg PO DAILYPRN PRN PRN Reason: Sinus Symptoms Mineral Oil/White Petrolatum (Eucerin Cream) 0 gm TOP BIDPRN PRN PRN Reason: Dry Skin Nitroglycerin (Nitro-Bid 2% Ointment) 0.5 inch TOP Q8HR PRN PRN Reason: SBP Greater Than 180 Ondansetron HCl (Zofran Odt) 4 mg PO Q6H PRN PRN Reason: Nausea/Vomiting Ondansetron HCl (Zofran) 4 mg IVP Q6H PRN PRN Reason: Nausea/Vomiting Polyethylene Glycol (Miralax) 17 gm PO DAILY PRN PRN Reason: Constipation Senna (Senokot) 2 tab PO HSPRN PRN PRN Reason: Constipation
[2017-03-03 07:20] VITALS: TEMP 97.6
[2017-03-03] MEDS: Docusate 100 MG CAP PO SCH (08:18)
[2017-03-03] MEDS: hydrALAZINE 25 MG TAB PO SCH (08:18)
[2017-03-03] MEDS: Carvedilol 25 MG TAB PO SCH (08:19)
[2017-03-03] MEDS: Famotidine 20 MG TAB PO SCH (08:19)
[2017-03-03] MEDS ORDERED: Lisinopril 20 MG TAB PO SCH (09:00)
[2017-03-03] MEDS ORDERED: Amlodipine 5 MG TAB PO SCH (09:00)
[2017-03-03] MEDS ORDERED: Aspirin 81 mg Enteric Coated Tablet PO SCH (10:00)
--- NOTE | 2017-03-03 10:02 | DIS ---
DATE OF DISCHARGE: 02/28/2017 DATE OF DISCHARGE: 03/03/2017 DISCHARGE DISPOSITION: Home. FOLLOWUP: Follow up with primary care physician, Dr. Rees. DISCHARGE MEDICATIONS: 1. Aspirin 81 mg daily. 2. Lipitor 10 mg at bedtime. 3. Clonidine as needed. Other home medications were resumed including amlodipine 5 mg twice a day, carvedilol 25 mg b.i.d., Lomotil as needed, glipizide extended release 2.5 mg daily, hydralazine 100 mg 3 times daily, lisino pril 40 mg b.i.d., and multivitamin 1 tablet daily. The patient was seen and examined on the day of discharge. Denies any new complaints. No chest jose n, shortness of breath or palpitations reported. BRIEF HOSPITAL COURSE: The patient is a 81-year-old female with hypertension, diabetes mellitus typ e 2, and end-stage renal disease on hemodialysis presented to the hospital with sudden onset of foca l neurologic deficit. She had right-sided weakness with visual symptoms. NIH in the emergency room was around 10. Please refer to the history and physical dated 02/28/2017 for further details. The patient was admitted to the hospital with diagnosis of acute CVA. She received tPA in the emerg ency room. After tPA, her symptoms almost completely resolved. MRI of the brain was negative. Ech ocardiogram showed left ventricular ejection fraction of 60%-65% with mild tricuspid regurgitation a nd mild pulmonary regurgitation. The patient was seen by mine safety engineer, Dr. Merchant; Neurology, Dr. Aide Barriga; and Nephrology, Dr. Merlos. She underwent hemodialysis yesterday. She has been cleared by consultants for discharge. Aspirin has been started to her regimen. FINAL DIAGNOSES: 1. Acute cerebrovascular accident, resolved after tPA. 2. End-stage renal disease on hemodialysis. Patient underwent dialysis yesterday. 3. Diabetes mellitus type 2. 4. Hypertension. 5. Dementia. 6. History of fall/gait instability. 7. Hyperparathyroidism. 8. Chronic anemia. 9. Mild thrombocytopenia. 10. Mild protein calorie malnutrition. Plan of care was discussed with the patient and the family at the bedside. They stated danna briones
[2017-03-03 11:29] VITALS: BP 154/82
--- NOTE | 2017-03-03 17:19 | PRG ---
DATE OF SERVICE: 03/03/2017 SUBJECTIVE: A 81-year-old female being seen for end-stage renal disease. Patient denies any denies any nausea, vomiting, or chest pain. PHYSICAL EXAMINATION: GENERAL: Patient is awake, alert. VITAL SIGNS: Afebrile, pulse , breathing at 16, blood pressure 154/82. GENERAL APPEARANCE AND MENTAL STATUS: Fair. HEAD/NECK: Normocephalic. Atraumatic. EYES: EOMI. No deformity. EARS: Clear. No ulcers. NOSE: Intact. No lesions. MOUTH: Clear. No discharge. THROAT: Clear. No exudate. LUNGS: Clear. No crackles. CARDIAC: S1, S2. No rub. ABDOMEN: Benign. BS+. GENITALIA/RECTUM: Jarrett absent. BACK/EXTREMITIES: Edema 0+ Ulcer- NEUROLOGICAL: Alert and motor intact. SKIN: Rash- Bruise- LYMPHATICS: Edema- Ulcer- LABORATORY: Hemoglobin 9.7. ASSESSMENT AND RECOMMENDATIONS: 1. Stage 6 chronic kidney disease. We will plan dialysis Sunday. 2. Hypertension, stable. 3. Anemia, stable. Cardiovascular risk factor advised the patient to follow up with Cardiology and Neurology. 4. Diabetes mellitus, advised the patient to follow up with Endocrinology.
== END 2017-03-03 11:32 | disposition home health service (06) | DRG 61 ==
LOC: ERS 08:58 → CCU 12:04 → 2SE 03-01 15:29
PROVIDERS: ADMIT Internal Medicine; ATTEND Internal Medicine
PROC: 3E03317 Introduction of Other Thrombolytic into Peripheral Vein, Percutaneous Approach (ICD-10-PCS; principal; 2017-02-28)
PROC: 5A1D70Z Performance of Urinary Filtration, Intermittent, Less than 6 Hours Per Day (ICD-10-PCS; 2017-03-01)
DX: I63.312 Cerebral infarction due to thrombosis of left middle cerebral artery (principal); N18.6 End stage renal disease; I12.0 Hypertensive chronic kidney disease with stage 5 chronic kidney disease or end stage renal disease; D69.6 Thrombocytopenia, unspecified; F03.90 Unspecified dementia, unspecified severity, without behavioral disturbance, psychotic disturbance, mood disturbance, and anxiety; E11.22 Type 2 diabetes mellitus with diabetic chronic kidney disease; G81.91 Hemiplegia, unspecified affecting right dominant side; E44.1 Mild protein-calorie malnutrition; R47.01 Aphasia; Z99.2 Dependence on renal dialysis; D63.1 Anemia in chronic kidney disease; Z91.81 History of falling; H53.2 Diplopia; E21.3 Hyperparathyroidism, unspecified; Z68.24 Body mass index [BMI] 24.0-24.9, adult; Z88.8 Allergy status to other drugs, medicaments and biological substances; K52.9 Noninfective gastroenteritis and colitis, unspecified; R26.81 Unsteadiness on feet
CPT/HCPCS: 36415; 36416; 37195; 70450; 70496; 70498; 70551; 71010; 80053; 80061; 80069; 82553; 84484; 85025; 85610; 85730; 87340; 90935; 93005; 93306; 94760; 99292; G0257; G8978-GP-CJ; G8979-GP-CH; G8987-GO-CJ; G8988-GO-CI; G8996-GN-CI; G8997-GN-CI; J0360; J1644; J2997

== ENCOUNTER 2017-03-20 05:49 | Day surgery (SDC) | payer MEDICARE, MEDICAID ==
[2017-03-19 13:10] VITALS: BMI 24.2
[2017-03-20] MEDS ORDERED: Lidocaine 1% w/Epinephrine 1:200K 30 ML VIAL ONE (06:40)
== END 2017-03-20 08:25 | disposition home or self-care (01) ==
LOC: SDC 05:49
PROVIDERS: ATTEND Internal Medicine Cardiovascular Disease
PROC: 0JH632Z Insertion of Monitoring Device into Chest Subcutaneous Tissue and Fascia, Percutaneous Approach (ICD-10-PCS; principal; 2017-03-20)
DX: I63.9 Cerebral infarction, unspecified (principal); E11.22 Type 2 diabetes mellitus with diabetic chronic kidney disease; I12.0 Hypertensive chronic kidney disease with stage 5 chronic kidney disease or end stage renal disease; N18.6 End stage renal disease; D64.9 Anemia, unspecified; F03.90 Unspecified dementia, unspecified severity, without behavioral disturbance, psychotic disturbance, mood disturbance, and anxiety; R26.9 Unspecified abnormalities of gait and mobility; Z99.2 Dependence on renal dialysis; Z79.84 Long term (current) use of oral hypoglycemic drugs; Z79.82 Long term (current) use of aspirin; Z79.899 Other long term (current) drug therapy; Z88.8 Allergy status to other drugs, medicaments and biological substances; Z91.048 Other nonmedicinal substance allergy status; Z90.49 Acquired absence of other specified parts of digestive tract; Z98.890 Other specified postprocedural states; Z91.81 History of falling
CPT/HCPCS: 33282; C1764

== ENCOUNTER 2017-04-16 17:17 | Emergency (ER) | payer MEDICARE, MEDICAID ==
[2017-04-16 18:25] LABS: #Eosinphils 0.4 thou/uL (0.0-0.7); #Lymphocytes 1.1 thou/uL (1.20-3.40); #Monocytes 0.4 thou/uL (0.11-0.59); #Neutrophils 2.9 thou/uL (1.40-6.50); %Basophils 0.3 % (0.0-1.0); %Eosinophils 8.2 % (0.0-10.0); %Lymphocytes 23.2 % (21.0-51.0); %Monocytes 7.7 % (0.0-10.0); Hematocrit 32.7 % (36.0-47.0); Mean Platelet Volume 7.7 fL (7.4-10.4); Red Blood Cell (RBC) Count 3.36 mill/uL (4.20-5.40); White Blood Cell (WBC) Count 4.8 thou/uL (4.8-10.8)
[2017-04-16 18:50] LABS: ALT (SGPT) 17 U/L (8-55); AST (SGOT) 30 U/L (5-34); Alkaline Phosphatase 103 U/L (40-150); Anion Gap 12 mmol/L (10-20); BUN (Urea Nitrogen) 12 mg/dL (9.8-20.1); Bilirubin, Total 0.7 mg/dL (0.2-1.2); Calc. Creatinine Clearance 0 mL/min (70-130); Calcium 8.8 mg/dL (7.8-10.44); Carbon Dioxide 32 mmol/L (23-31); Chloride 96 mmol/L (98-107); Estimated GFR-MDRD 16; Globulin 3.2 g/dL (2.4-3.5); Magnesium 2.3 mg/dL (1.6-2.6); Phosphorus 2.5 mg/dL (2.3-4.7); Protein, Total 6.9 g/dL (6.0-8.3)
--- NOTE | 2017-04-16 19:44 | RAD ---
AP CHEST: History: Two day history of cough. FINDINGS: The lungs are well aerated. No evidence of active intrathoracic disease seen. No evidence of effusion s or pneumonia seen. Mild cardiomegaly is noted. IMPRESSION: 1. Mild cardiomegaly. No acute intrathoracic abnormalities seen. 2. Chronic degenerative changes and trauma seen in the proximal right humerus. This is stable and unc hanged. POS: [facility]
== END 2017-04-16 21:07 | disposition home or self-care (01) ==
LOC: ERS 17:17
DX: J06.9 Acute upper respiratory infection, unspecified (principal); I12.0 Hypertensive chronic kidney disease with stage 5 chronic kidney disease or end stage renal disease; N18.6 End stage renal disease; Z99.2 Dependence on renal dialysis; E11.9 Type 2 diabetes mellitus without complications; Z79.899 Other long term (current) drug therapy
CPT/HCPCS: 36415; 71010; 80053; 83735; 84100; 85025; 94760

== ENCOUNTER 2017-04-23 09:27 | Emergency (ER) | payer MEDICARE, MEDICAID ==
[2017-04-23 10:51] LABS: #Eosinphils 0.1 thou/uL (0.0-0.7); #Lymphocytes 0.7 thou/uL (1.20-3.40); #Monocytes 0.3 thou/uL (0.11-0.59); #Neutrophils 5.2 thou/uL (1.40-6.50); %Basophils 0.3 % (0.0-1.0); %Eosinophils 2.2 % (0.0-10.0); %Lymphocytes 10.9 % (21.0-51.0); %Monocytes 4.4 % (0.0-10.0); Hematocrit 32.4 % (36.0-47.0); Red Blood Cell (RBC) Count 3.37 mill/uL (4.20-5.40); White Blood Cell (WBC) Count 6.3 thou/uL (4.8-10.8)
--- NOTE | 2017-04-23 10:59 | RAD ---
PORTABLE CHEST 1 VIEW: Date: 04/23/17 Time: 1018 hours HISTORY: Cough, fever, weakness, nausea, and vomiting. FINDINGS/IMPRESSION: Comparison made with exam of 04/16/17. The heart size is borderline. There is mild pulmonary vascular congestion. Mild infiltrates are noted in the lower lung humphrey with probable accompanying small effusions. No pneumothoraces are seen. Chr onic changes in the right proximal humerus are again noted. POS: [facility]
[2017-04-23] MEDS ORDERED: Ondansetron HCl/PF 4 MG/2 ML Vial ONE ×2 (11:02→15:10)
[2017-04-23 11:09] LABS: ALT (SGPT) 15 U/L (8-55); AST (SGOT) 28 U/L (5-34); Alkaline Phosphatase 80 U/L (40-150); Anion Gap 16 mmol/L (10-20); BUN (Urea Nitrogen) 35 mg/dL (9.8-20.1); Bilirubin, Total 0.6 mg/dL (0.2-1.2); Calc. Creatinine Clearance 0 mL/min (70-130); Calcium 9.2 mg/dL (7.8-10.44); Carbon Dioxide 29 mmol/L (23-31); Chloride 89 mmol/L (98-107); Estimated GFR-MDRD 7; Protein, Total 6.7 g/dL (6.0-8.3)
--- NOTE | 2017-04-23 11:34 | CON ---
DATE OF CONSULTATION: 04/23/2017 NEPHROLOGY CONSULTATION REASON FOR CONSULTATION: Stage 3 chronic kidney disease, on maintenance hemodialysis. HISTORY OF PRESENT ILLNESS: This is a very pleasant 81-year-old female with a history of ESRD who presented to the hospital with a 3-day history of nausea, vomiting, and weakness. The patient also had some tingling. Denies chest pain , orthopnea, PND. Denies any nausea, vomiting or chest pain at this time. The patient had some diarrhea. PAST MEDICAL HISTORY: Significant for hypertension, end-stage renal disease, anemia, cholecystectomy, AV fistula, tunneled dialysis catheter, diabetes mellitus. HOME MEDICATIONS: Reviewed. ALLERGIES: Reviewed. HOSPITAL MEDICATIONS: Reviewed. REVIEW OF SYSTEMS: Fifteen point review of systems was performed and negative except positives noted above. GENERAL: Weakness- HEAD: Headache- NECK: No swelling or lumps. NOSE: No epistaxis or discharge. EYES: No diplopia or pain. 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 NEUROPSYCHIATIC SYSTEMS: No suicidal ideation. No ideation. SKIN: Denies any rash or ulcer. CONSTITUTIONAL: No fever or chills. PHYSICAL EXAMINATION: GENERAL: Patient is awake, alert. VITAL SIGNS: Afebrile, pulse 70, breathing at 16, blood pressure 140/70. HEAD/NECK: Normocephalic. Atraumatic. EYES: EOMI. No deformity. EARS: Clear. No ulcers. NOSE: Intact. No lesions. MOUTH: Clear. No discharge. THROAT: Clear. No exudate. LUNGS: Clear. No crackles. CARDIAC: S1, S2. No rub. ABDOMEN: Benign. BS+. GENITALIA/RECTUM: Jarrett absent. BACK/EXTREMITIES: Edema 0+ Ulcer- NEUROLOGICAL: Alert and motor intact. SKIN: Rash- Bruise- LYMPHATICS: Edema- Ulcer- LABORATORY: Hemoglobin 10.7. Potassium is pending. ASSESSMENT AND RECOMMENDATIONS: 1. Stage 6 chronic kidney disease, we will dialysis Sunday, Sunday, Sunday. 2. Hypertension and anemia, stable. 3. Medications based on glomerular filtration rate are appropriate nausea and vomiting. Management per primary team. MTDD
[2017-04-23 13:40] LABS: Bilirubin Negative (Negative); Blood, Urine Negative (Negative); Glucose, Urine (Dipstick) Negative (Negative); Ketone, Urine Negative (Negative); Nitrite Negative (Negative); Protein, Urine (Dipstick) 300 mg/dL (Neg-Trace)
[2017-04-23 13:41] LABS: Hyaline Casts/LPF 4-6 HYALINE CAST LPF (0-3 Hyaline); Squamous Epithelial 0-3 HPF (0-3); WBC/HPF 21-50 HPF (0-3)
[2017-04-23 14:05] LABS: Bacteria/HPF 4+ HPF (None Seen)
[2017-04-23] MEDS ORDERED: Ondansetron ODT 4 MG TAB ONE (15:11)
== END 2017-04-23 15:46 | disposition home or self-care (01) ==
LOC: ERS 09:27
DX: I12.0 Hypertensive chronic kidney disease with stage 5 chronic kidney disease or end stage renal disease (principal); E11.22 Type 2 diabetes mellitus with diabetic chronic kidney disease; N18.6 End stage renal disease; Z99.2 Dependence on renal dialysis; Z79.891 Long term (current) use of opiate analgesic; Z79.899 Other long term (current) drug therapy
CPT/HCPCS: 71010; 80053; 81003; 81015; 85025; 87077; 87086; 87186; 87340; 96374; J2405; Q0162

== ENCOUNTER 2017-04-24 13:42 | Emergency (ER) | payer MEDICARE, MEDICAID | END 2017-04-24 15:58 | disposition left against medical advice (07) | LOC: ERS 13:42 | DX: Z53.21 Procedure and treatment not carried out due to patient leaving prior to being seen by health care provider (principal) ==

== ENCOUNTER 2017-12-03 13:21 | Emergency (ER) | payer MEDICARE, MEDICAID ==
[2017-12-03] MEDS ORDERED: Ondansetron ODT 4 MG TAB ONE (16:17)
--- NOTE | 2017-12-03 19:04 | RAD ---
CERVICAL SPINE RADIOGRAPHS THREE VIEWS: 12/03/2017 PROVIDED CLINICAL HISTORY: Headache. FINDINGS: Cervical alignment appears normal. Vertebral body heights appear preserved. Multilevel cervical dis k narrowing and endplate degenerative change. No prevertebral soft tissue swelling apparent. The vi sualized lung apices appear clear of focal consolidation but demonstrate somewhat conspicuous interst itial opacities. IMPRESSION: 1. Degenerative changes involving the cervical spine without evidence for fracture or traumatic subl uxation. 2. Nonspecific prominence of the pulmonary interstitium. Consider dedicated posterior-anterior and lateral chest radiographs. POS: [facility]
== END 2017-12-03 18:10 | disposition home or self-care (01) ==
LOC: ERS 13:21
DX: M54.2 Cervicalgia (principal); R11.0 Nausea; F03.90 Unspecified dementia, unspecified severity, without behavioral disturbance, psychotic disturbance, mood disturbance, and anxiety; I12.0 Hypertensive chronic kidney disease with stage 5 chronic kidney disease or end stage renal disease; N18.6 End stage renal disease; E11.22 Type 2 diabetes mellitus with diabetic chronic kidney disease; Z99.2 Dependence on renal dialysis
CPT/HCPCS: 72040; 93005; Q0162

== ENCOUNTER 2017-12-05 07:53 | Emergency (ER) | payer MEDICARE, MEDICAID ==
[2017-12-05 08:45] LABS: #Eosinphils 0.1 thou/uL (0.0-0.7); #Lymphocytes 0.6 thou/uL (1.20-3.40); #Monocytes 0.3 thou/uL (0.11-0.59); #Neutrophils 4.9 thou/uL (1.40-6.50); %Basophils 0.1 % (0.0-1.0); %Eosinophils 2.3 % (0.0-10.0); %Lymphocytes 10.6 % (21.0-51.0); %Monocytes 5.5 % (0.0-10.0); %Neutrophils 81.6 % (42.0-75.0); Hemoglobin 10.2 g/dL (12.0-16.0); Mean Corpuscular HGB CONC 33.4 g/dL (32.0-36.0); Mean Corpuscular Hemoglobin 32.6 pg (27.0-31.0); Mean Corpuscular Volume 97.6 fL (78.0-98.0); Mean Platelet Volume 7.9 fL (7.4-10.4); Platelet Count 150 thou/uL (130-400); RBC Distribution Width 12.7 % (11.5-14.5); Red Blood Cell (RBC) Count 3.12 mill/uL (4.20-5.40)
[2017-12-05 08:48] LABS: INR-International Normal Ratio 1.1; Prothrombin Time 14.5 SEC (12.0-14.7)
[2017-12-05 08:59] LABS: Bilirubin Negative (Negative); Blood, Urine Negative (Negative); Clarity CLEAR (Clear); Glucose, Urine (Dipstick) Negative (Negative); Leukocyte Negative (Negative); Nitrite Negative (Negative); Protein, Urine (Dipstick) 300 mg/dL (Neg-Trace); Specific Gravity, Urine 1.015 (1.002-1.036); Urobilinogen 0.2 mg/dL (0.2-1.0)
[2017-12-05 09:01] LABS: Bacteria/HPF None Seen HPF (None Seen); Pathc Cast-AUWi Flag 0.87 (0-2.49); Squamous Epithelial 0-3 HPF (0-3); WBC/HPF 0-3 HPF (0-3)
[2017-12-05 09:03] LABS: ALT (SGPT) 17 U/L (8-55); AST (SGOT) 25 U/L (5-34); Alkaline Phosphatase 82 U/L (40-150); Anion Gap 19 mmol/L (10-20); BUN (Urea Nitrogen) 33 mg/dL (9.8-20.1); Bilirubin, Total 0.7 mg/dL (0.2-1.2); Calc. Creatinine Clearance 0 mL/min (70-130); Calcium 8.7 mg/dL (7.8-10.44); Carbon Dioxide 29 mmol/L (23-31); Chloride 94 mmol/L (98-107); Estimated GFR-MDRD 6; Glucose 166 mg/dL (83-110); Potassium 4.5 mmol/L (3.5-5.1); Sodium 137 mmol/L (136-145)
[2017-12-05 09:08] LABS: CKMB 0.9 ng/mL (0-6.6); Troponin I 0.011 ng/mL (< 0.028)
[2017-12-05 09:15] LABS: RBC/HPF 0-3 HPF (0-3)
[2017-12-05 09:16] LABS: Hyaline Casts/LPF 0-3 HYALINE CAST LPF (0-3 Hyaline); Renal Epithelial 0-3 HPF (0-3); Transitional Epithelial 0-3 HPF (0-3)
--- NOTE | 2017-12-05 09:55 | RAD ---
CHEST ONE VIEW: HISTORY: An 82-year-old female with a history of weakness and chills. COMPARISON: 04/23/2017 FINDINGS: Monitor leads overly the chest. Healed right proximal humeral fracture. Borderline heart size. Loo p recorder overlying the left chest. No confluent pneumonia, overt edema, or pleural effusion. IMPRESSION: Borderline cardiomegaly. No significant acute intrathoracic disease. POS: [facility]
== END 2017-12-05 10:40 | disposition home or self-care (01) ==
LOC: ERS 07:53
DX: R53.1 Weakness (principal); F03.90 Unspecified dementia, unspecified severity, without behavioral disturbance, psychotic disturbance, mood disturbance, and anxiety; E11.9 Type 2 diabetes mellitus without complications; I12.0 Hypertensive chronic kidney disease with stage 5 chronic kidney disease or end stage renal disease; N18.6 End stage renal disease; Z99.2 Dependence on renal dialysis; Z79.899 Other long term (current) drug therapy
CPT/HCPCS: 51701; 71045; 80053; 81003; 81015; 82553; 84484; 85025; 85610; 93005; A4353

== ENCOUNTER 2017-12-08 09:40 | Inpatient (IN) | payer MEDICARE, MEDICAID ==
[2017-12-08 10:31] LABS: #Eosinphils 0.1 thou/uL (0.0-0.7); #Monocytes 0.6 thou/uL (0.11-0.59); #Neutrophils 11.1 thou/uL (1.40-6.50); %Basophils 0.1 % (0.0-1.0); %Eosinophils 0.5 % (0.0-10.0); %Lymphocytes 7.6 % (21.0-51.0); %Monocytes 4.5 % (0.0-10.0); %Neutrophils 87.3 % (42.0-75.0); Hemoglobin 10.8 g/dL (12.0-16.0); Mean Corpuscular HGB CONC 34.4 g/dL (32.0-36.0); Mean Corpuscular Hemoglobin 33.3 pg (27.0-31.0); Mean Corpuscular Volume 96.8 fL (78.0-98.0); Mean Platelet Volume 7.4 fL (7.4-10.4); Platelet Count 151 thou/uL (130-400); RBC Distribution Width 13.1 % (11.5-14.5); Red Blood Cell (RBC) Count 3.24 mill/uL (4.20-5.40); White Blood Cell (WBC) Count 12.7 thou/uL (4.8-10.8)
[2017-12-08 10:55] LABS: ALT (SGPT) 16 U/L (8-55); AST (SGOT) 26 U/L (5-34); Albumin 3.9 g/dL (3.4-4.8); Alkaline Phosphatase 88 U/L (40-150); Anion Gap 16 mmol/L (10-20); BUN (Urea Nitrogen) 14 mg/dL (9.8-20.1); Bilirubin, Total 0.9 mg/dL (0.2-1.2); Calc. Creatinine Clearance 0 mL/min (70-130); Calcium 8.7 mg/dL (7.8-10.44); Carbon Dioxide 27 mmol/L (23-31); Chloride 95 mmol/L (98-107); Estimated GFR-MDRD 10; Globulin 2.9 g/dL (2.4-3.5); Glucose 124 mg/dL (83-110); Potassium 4.4 mmol/L (3.5-5.1); Protein, Total 6.8 g/dL (6.0-8.3); Sodium 134 mmol/L (136-145)
[2017-12-08] MEDS ORDERED: Acetaminophen 1,000 MG in Premix Bag 1 BAG IVPB ONE (11:00)
[2017-12-08 11:50] LABS: CKMB 0.5 ng/mL (0-6.6); Troponin I Less than 0.010 ng/mL (< 0.028)
[2017-12-08] MEDS ORDERED: ISOVUE-370 76%-LOCM 1 ML ONE (12:02)
[2017-12-08] MEDS ORDERED: metroNIDAZOLE 500 MG/100 ML BAG ONE (14:24)
[2017-12-08] MEDS ORDERED: Pantoprazole 40 MG VIAL ONE ×2 (14:24→15:14)
[2017-12-08 14:44] LABS: INR-International Normal Ratio 1.2; PTT 32.6 SEC (22.9-36.1); Prothrombin Time 15.3 SEC (12.0-14.7)
--- NOTE | 2017-12-08 14:54 | CT ---
CT ABDOMEN WITH CONTRAST CT PELVIS WITH CONTRAST: DATE: 12/08/17 TIME: 1250 hours HISTORY: 82-year-old female with fever and generalized abdominal pain. COMPARISON: None. TECHNIQUE: IV injection of iodinated contrast media: Administered. Oral contrast media: Not administered. FINDINGS: Small bilateral pleural effusions. No consolidation of the lung bases. Minimal passive subsegmental a telectasis at bilateral lower lobes abutting the pleural effusions. No pneumoperitoneum. Extensive pr esacral edema posterior to the distended, stool-filled rectum which has mild mural thickening. Normal urinary bladder wall thickness. No acute colonic diverticulitis. No small bowel dilation. No abdomin al aortic aneurysm. Cholecystectomy clips. Diffusely low hepatic attenuation consistent with mildly f atty liver. There is a circumscribed, approximately 5 x 2.5 x 2 cm low attenuation lesion at the ante rior superior surface of the liver, abutting the undersurface of the anterior edge of the diaphragm, centered to the right of midline. There is definitely an extrahepatic component between the diaphragm and the surface of the liver. This lesion indents the liver parenchyma, indenting hepatic segment 4a and possibly segment 8. It is uncertain whether this is entirely extrahepatic or whether there is an intrahepatic component. The rest of the liver has no other focal lesion. No portal vein thrombosis. Bilateral kidneys are somewhat small in size. No hydronephrosis. No major pathology of the adrenals, pancreas, or spleen. No small bowel dilation. No acute colonic diverticulitis. No intraperitoneal or retroperitoneal abscess. IMPRESSION: 1. Prominent edema fluid in the presacral space, posterior to the rectum. 2. Constipation, with large amount of stool distending the rectum. This raises the possibility of st ercoral proctocolitis. Recommend clinical correlation. 3. A 5 cm low attenuation lesion indenting the anterior upper aspect of the liver, of uncertain etio logy. This could be a nonacute hematoma. It does not appear typical for abscess. It does not appear t ypical for neoplasm. Follow-up is recommended. 4. Small bilateral pleural effusions. 5. Hepatic steatosis. 6. Atrophic bilateral kidneys. JNR POS: [facility]
[2017-12-08 17:19] VITALS: BMI 23.8
[2017-12-08] MEDS ORDERED: Ondansetron ODT 4 MG TAB SL PRN (17:25)
[2017-12-08] MEDS ORDERED: Ondansetron HCl/PF 4 MG/2 ML Vial IVP PRN ×2 (17:25→17:58)
[2017-12-08] MEDS ORDERED: Acetaminophen 325 MG TAB PO PRN ×2 (17:25→17:58)
[2017-12-08] MEDS ORDERED: Dextrose 50% Abboject 50 ML SYRINGE SLOW IVP PRN (17:58)
[2017-12-08] MEDS ORDERED: Dextrose 5% in Water 1,000 ML IV PRN (17:58)
[2017-12-08] MEDS ORDERED: HumaLOG 300 UNITS/3 ML VIAL SC PRN ×2 (17:58)
[2017-12-08] MEDS ORDERED: hydrALAZINE 20 MG/ML VIAL SLOW IVP PRN (18:09)
[2017-12-08] MEDS ORDERED: traMADol HCl 50 MG TAB PO PRN (18:21)
[2017-12-08] MEDS ORDERED: Fentanyl 100 MCG/2 ML VIAL SLOW IVP PRN (18:21)
[2017-12-08 19:23] LABS: #Eosinphils 0.1 thou/uL (0.0-0.7); #Lymphocytes 0.9 thou/uL (1.20-3.40); #Monocytes 0.7 thou/uL (0.11-0.59); #Neutrophils 11.5 thou/uL (1.40-6.50); %Basophils 0.1 % (0.0-1.0); %Eosinophils 0.4 % (0.0-10.0); %Lymphocytes 7.1 % (21.0-51.0); %Monocytes 5.5 % (0.0-10.0); %Neutrophils 86.9 % (42.0-75.0); Hemoglobin 10.4 g/dL (12.0-16.0); Mean Corpuscular HGB CONC 33.4 g/dL (32.0-36.0); Mean Corpuscular Hemoglobin 32.7 pg (27.0-31.0); Mean Corpuscular Volume 97.9 fL (78.0-98.0); Mean Platelet Volume 7.7 fL (7.4-10.4); Platelet Count 129 thou/uL (130-400); Red Blood Cell (RBC) Count 3.18 mill/uL (4.20-5.40); White Blood Cell (WBC) Count 13.2 thou/uL (4.8-10.8)
[2017-12-08] MEDS: Carvedilol 25 MG TAB PO SCH (21:28)
[2017-12-08] MEDS: Lisinopril 20 MG TAB PO SCH (21:28)
[2017-12-08] MEDS: Amlodipine 5 MG TAB PO SCH (21:28)
[2017-12-08] MEDS: metroNIDAZOLE 500 MG in Premix Bag 1 BAG IVPB SCH (21:29)
[2017-12-08] MEDS: Polyethylene Glycol 3350 17 GM Packet PO SCH (21:29)
[2017-12-08] MEDS: Pantoprazole 40 MG VIAL IVP SCH (21:29)
--- NOTE | 2017-12-09 00:38 | HP ---
DATE OF SERVICE: 12/08/2017 PRIMARY CARE PHYSICIAN: Dr. Rees. CHIEF COMPLAINT: Weakness. HISTORY OF PRESENT ILLNESS: This is an 82-year-old female with end-stage renal disease, on hemodialysis; diabetes; hypertension; chronic anemia; who presents to the emergency room by EMS secondary to significant weakness. This is the patient's third presentation for care to the emergency room. It starts on 12/03 with nausea, vomiting, and pain in her neck and shoulders as well as headache. She was sent here from dialysis due to the pain, received some medications and discharged home. She returned on 12/05/2017 for worse symptoms , not eating, vomiting, aching. She also felt the need for a bowel movement, but was unable to have one. She was discharged, went to dialysis and then home. She followed up with her primary care provider on 12/06/2017 and was able to eat more and feeling a little bit better, and the following day felt more normal and had her normal dialysis session. This morning at 5 in the morning, she was on the ground, calling out to her daughter. She was weak and unable to stand up, hot to the touch, and 911 was contacted. Her daughter reports that she was responding appropriately, she had been nauseous and today she had a bloody stool. Overnight, she was straining to have a bowel movement as well. No prior history of similar symptoms, no precipitating or relieving factors. The patient now reports that she feels weak and tired, and that she is having pain in her anal area. In the emergency room, the patient found to have a temperature of 102.1, visible melena, a CT scan that demonstrates stercoral proctocolitis, and hospitalist called for admission. She received 400 mg IV Cipro, 80 mg IV protonix, 1L NS, Flagyl 500 mg, Ofirmev 1000 mg IV. ALLERGIES: LINAGLIPTIN and ADHESIVE TAPE. MEDICATIONS: Reconciled with the bottles. 1. Hydralazine 100 mg t.i.d. 2. Lisinopril 40 mg b.i.d. 3. Amlodipine 5 mg b.i.d. 4. Glipizide 2.5 mg daily. 5. Carvedilol 25 mg b.i.d. 6. Aspirin 81 mg daily. 7. Multivitamin. 8. Omeprazole. 9. Phosphate binder, unknown dose with each meal. 10. Diphenoxylate after dialysis. 11. Zofran as needed. PAST MEDICAL HISTORY: 1. Stroke, status post TPA in 02/2017. 2. End-stage renal disease, on hemodialysis Sunday, Sunday, Sunday with Dr. Merlos. 3. Diabetes mellitus, type 2. 4. Hypertension. 5. Chronic anemia. 6. Mild dementia. 7. Gait instability and history of fall. PAST SURGICAL HISTORY: 1. Fistula in her right arm. 2. Cholecystectomy. 3. Eye surgery. 4. . SOCIAL HISTORY: The patient lives with one of her daughters. No alcohol or tobacco, her medical power of employee benefits attorney is her daughter, Selene and her code status is FULL. FAMILY HISTORY: Significant for high blood pressure, diabetes, and heart disease. REVIEW OF SYSTEMS: Positive for diarrhea that has been ongoing and generally after dialysis, nausea and vomiting this week, neck pain and shoulder pain earlier in the week. Negative for any visual changes, problems with speaking or swallowing, chest pain or difficulty breathing. All remaining review of systems are reviewed and negative. PHYSICAL EXAMINATION: VITAL SIGNS: Blood pressure 170/73, temperature 99.3, pulse 69, respirations 18 , saturations 91% on room air, T-max in the ER was 102.1. GENERAL: Awake, alert, responsive, tired appearing, but not in apparent distress. HEENT: Pupils are equal and round. Extraocular movements are intact. Oral mucosa is pink and moist. NECK: Supple and nontender. LYMPHATICS: No palpable cervical or supraclavicular lymphadenopathy. LUNGS: Clear to auscultation bilateral. HEART: Normal S1, S2, regular rate and rhythm, no audible murmurs. ABDOMEN: Soft. Present bowel sounds. Nontender, nondistended. EXTREMITIES: No clubbing, cyanosis, or edema. GENITOURINARY: Unable to appreciate the patient with medium brown stool in the brief. SKIN: No visible rashes. VASCULAR: Fistula appears intact in her right arm. 2+ dorsalis pedis pulses. NEUROLOGIC: No focal deficits. PSYCHIATRIC: Euthymic, linear, logical, goal-directed thought process. LABORATORY DATA AND IMAGIN. CBC: 12.7, 10.8, 31.4, 151 with 87% neutrophils. INR 1.2. 2. Renal panel: 134, 4.4, 95, 27, 14, 4.0, 124. 3. LFTs normal. 4. Troponin negative. 5. CT scan shows prominent edema in the presacral space posterior to the rectum , constipation with large amount of stool in the rectum which raises the possibility of stercoral proctocolitis, low attenuation lesion in the anterior upper aspect of the liver of uncertain etiology with recommended followup, small bilateral pleural effusions, hepatic steatosis and atrophic bilateral kidneys. 6. EKG personally reviewed, sinus rhythm, normal axis, normal intervals, no ST changes, inverted T waves in III and AVF. IMPRESSION: 1. Sepsis with fever, elevated white blood cell count in a patient at high risk secondary to end-stage renal disease, appears related to stercoral proctocolitis. 2. Melena secondary to above. 3. Nausea, vomiting, weakness secondary to above. 4. Chronic anemia, appears stable. 5. End-stage renal disease, on hemodialysis. 6. Hypertension, uncertain control. 7. Diabetes, uncertain control. 8. Mild dementia. 9. History of stroke, no visible deficits. PLAN: 1. Admission to the hospital. 2. GI consultation, continuing IV antibiotics with renal dosing, clear liquid diet for now. Manage pain. 3. Nephrology consultation. 4. Anticipated dialysis on Sunday, 2 days from now. 5. Continuing her antihypertensives with hold parameters to avoid hypotension. 6. Holding her home aspirin due to the bleeding. 7. Given the reported melena, we will check serial CBCs, the patient does verbally consented transfusion if indicated. Type and screen has been performed. 8. Holding her home glipizide, we will use sliding scale insulin as needed. 9. Monitoring on telemetry for any change. 10. Continuing the IV Protonix, we will schedule twice a day. 11. Deep venous thrombosis prophylaxis with sequential compression devices given the bleeding. 12. Gastrointestinal prophylaxis, on IV Protonix. 13. Code status is FULL and surrogate decision maker is her daughter, Selene. 14. The patient is at high risk given age, comorbidities, and current presentation. 15. I reviewed the plan of care with the patient and her daughter. No questions or further needs at end of evaluation. [facility]
[2017-12-09 00:53] LABS: Band 2 % (5-11); Hemoglobin 10.6 g/dL (12.0-16.0); Lymphocytes 5 % (21-51); MDiff Complete? YES; Mean Corpuscular HGB CONC 34.5 g/dL (32.0-36.0); Mean Corpuscular Hemoglobin 33.4 pg (27.0-31.0); Mean Corpuscular Volume 96.9 fL (78.0-98.0); Mean Platelet Volume 7.2 fL (7.4-10.4); Monocytes 3 % (0-10); Neutrophil 90 % (42-75); Platelet Count 131 thou/uL (130-400); RBC Distribution Width 13.2 % (11.5-14.5); Red Blood Cell (RBC) Count 3.17 mill/uL (4.20-5.40); White Blood Cell (WBC) Count 14.8 thou/uL (4.8-10.8)
--- NOTE | 2017-12-09 02:28 | CON ---
DATE OF CONSULTATION: 12/08/2017 REASON FOR CONSULTATION: End-stage renal disease, on maintenance hemodialysis. HISTORY OF PRESENT ILLNESS: This is a very pleasant 82-year-old female on dialysis Sunday, Sunday , and Sunday, who presented to the hospital with abdominal pain, nausea, vomiting, and fever. The pa tient was dialyzed. The patient denies any headache, numbness, tingling or weakness. The patient bhandari d bright red stool. PAST MEDICAL HISTORY: Significant for end-stage renal disease, hypertension, diabetes mellitus, hist ory of , history of cholecystectomy. FAMILY HISTORY: Negative for ESRD. ALLERGIES: Reviewed. HOME MEDICATIONS: List reviewed. REVIEW OF SYSTEMS: A 15-point review of systems was performed and was negative except for positives noted above. General: Weakness. Head: Headache. Neck: No swelling or lumps. Nose: No epistaxi s or discharge. Eyes: No diplopia or pain. Respiratory: Dyspnea. Cardiovascular: Chest pain. G astrointestinal: Nausea. Gu/DRAWBRIDGE OPERATOR: Hematuria. Musculoskeletal: No joint pain. Neuropsychiatic Sys tems: No suicidal ideation. No ideation. Skin: Denies any rash or ulcer. Constitutional: No fev er or chills. PHYSICAL EXAMINATION: GENERAL: The patient is awake and alert. . HEAD/NECK: Normocephalic. Atraumatic. EYES: EOMI. No deformity. EARS: Clear. No ulcers. NOSE: Intact. No lesions. MOUTH: Clear. No discharge. THROAT: Clear. No exudate. LUNGS: Clear. No crackles. CARDIAC: S1, S2. No rub. ABDOMEN: Benign. BS+. GENITALIA/RECTUM: Jarrett absent. BACK/EXTREMITIES: Edema 0+ Ulcer. NEUROLOGICAL: Alert and motor intact. SKIN: Rash. Bruise. LYMPHATICS: Edema. Ulcer. LABORATORY: Show hemoglobin 10.4, creatinine is 4.0. ASSESSMENT AND RECOMMENDATIONS: 1. Stage 6 chronic kidney disease, on dialysis. 2. Hypertension, stable. 3. Anemia, stable. 4. Medication based on glomerular filtration rate are appropriate.
[2017-12-09] MEDS: metroNIDAZOLE 500 MG in Premix Bag 1 BAG IVPB SCH ×3 (05:39→21:17)
[2017-12-09 06:17] LABS: Anion Gap 15 mmol/L (10-20); BUN (Urea Nitrogen) 23 mg/dL (9.8-20.1); Calc. Creatinine Clearance 8 mL/min (70-130); Calcium 8.6 mg/dL (7.8-10.44); Carbon Dioxide 25 mmol/L (23-31); Chloride 95 mmol/L (98-107); Estimated GFR-MDRD 8; Glucose 82 mg/dL (83-110); Potassium 4.6 mmol/L (3.5-5.1); Sodium 130 mmol/L (136-145)
[2017-12-09 06:26] LABS: Band 13 % (5-11); Lymphocytes 8 % (21-51); MDiff Complete? YES; Mean Corpuscular HGB CONC 34.5 g/dL (32.0-36.0); Mean Corpuscular Hemoglobin 33.5 pg (27.0-31.0); Mean Corpuscular Volume 97.1 fL (78.0-98.0); Mean Platelet Volume 7.8 fL (7.4-10.4); Monocytes 4 % (0-10); Neutrophil 75 % (42-75); Platelet Count 131 thou/uL (130-400); RBC Distribution Width 13.1 % (11.5-14.5); White Blood Cell (WBC) Count 13.6 thou/uL (4.8-10.8)
[2017-12-09] MEDS: Polyethylene Glycol 3350 17 GM Packet PO SCH ×2 (08:16→16:10)
[2017-12-09] MEDS: Pantoprazole 40 MG VIAL IVP SCH (08:16)
[2017-12-09] MEDS: Amlodipine 5 MG TAB PO SCH ×2 (08:16→20:19)
[2017-12-09] MEDS: Lisinopril 20 MG TAB PO SCH ×2 (08:16→20:20)
[2017-12-09] MEDS: Carvedilol 25 MG TAB PO SCH ×2 (08:16→20:19)
--- NOTE | 2017-12-09 10:46 | PDOC.PN ---
- Subjective Encounter Start Date: 12/09/17 (f/u fever) Encounter Start Time: 10:43 Subjective: Pt denies complaints, reports she is feeling better. Denies n/v/ abd pain -: some rectal pain but less. 2 bm's today - second one small amount - Objective Resuscitation Status: Resuscitation Status FULL:Full Resuscitation Vital Signs & Weight: Vital Signs (12 hours) Temp Pulse Resp BP Pulse Ox 12/09/17 08:12 100.6 F H 69 16 177/72 H 94 L 12/09/17 06:30 99.5 F 71 18 174/72 H 94 L I&O: 12/08/17 12/09/17 12/10/17 06:59 06:59 06:59 Intake Total 360 Balance 360 Result Diagrams: 12/09/17 04:29 12/09/17 04:29 Additional Labs: Accuchecks 12/09/17 12/08/17 05:57 21:05 POC Glucose 102 152 H EKG Reviewed by me: Yes (tele - sinus 60-70's) Phys Exam - Physical Examination Constitutional: NAD Respiratory: no wheezing, no rhonchi faint rales at the bases Cardiovascular: RRR 2/6 KAMINI Gastrointestinal: soft, non-tender, no distention, positive bowel sounds Musculoskeletal: no edema, pulses present Neurological: non-focal, moves all 4 limbs Psychiatric: normal affect Skin: no rash Dx/Plan (1) Sepsis Code(s): A41.9 - SEPSIS, UNSPECIFIED ORGANISM Status: Acute Qualifiers: Sepsis type: sepsis due to unspecified organism Qualified Code(s): A41.9 - Sepsis, unspecified organism (2) Proctocolitis Code(s): K52.9 - NONINFECTIVE GASTROENTERITIS AND COLITIS, UNSPECIFIED Status : Acute (3) ESRD (end stage renal disease) Code(s): N18.6 - END STAGE RENAL DISEASE Status: Chronic (4) Diabetes mellitus Code(s): E11.9 - TYPE 2 DIABETES MELLITUS WITHOUT COMPLICATIONS Status: Chronic Qualifiers: Diabetes mellitus type: type 2 Diabetes mellitus exterminator termite insulin use: without exterminator termite use Diabetes mellitus complication status: with kidney complications Chronic kidney disease stage: on chronic dialysis (5) Hypertension Code(s): I10 - ESSENTIAL (PRIMARY) HYPERTENSION Status: Chronic Qualifiers: Hypertension type: essential hypertension Qualified Code(s): I10 - Essential (primary) hypertension (6) Constipation Code(s): K59.00 - CONSTIPATION, UNSPECIFIED Status: Acute (7) Anemia Code(s): D64.9 - ANEMIA, UNSPECIFIED Status: Chronic Qualifiers: Chronic kidney disease stage: on chronic dialysis (8) Dementia Code(s): F03.90 - UNSPECIFIED DEMENTIA WITHOUT BEHAVIORAL DISTURBANCE Status: Chronic Qualifiers: Dementia type: unspecified type - Plan * Appreciate GI & Nephrology consults * * Hemoglobin stable, no significant bleeding noted by nursing staff - d/c IV protonix and change to oral per home medication list * * Proctocolitis/sepsis - continue IV antibiotics * Constipation - large volume - miralax bid to clear this - pt/family advised that the goal is clear out the constipation and anticipate she will have multiple loose stools in the meantime. The chronic diarrhea may be secondary to chronic constipation. Full liquid renal prudent diet * HTN uncontrolled - resume hydralazine * dm controlled - continue SSI * * dvt prophy - scd's * gi prophy - not indicated * code status full * * reviewed plan of care with patient/family, no questions or further needs at end of eval * pt remains at high risk in current condition * *
--- NOTE | 2017-12-09 11:31 | PRG ---
DATE OF SERVICE: 12/09/2017 SUBJECTIVE: An 82-year-old female being seen for end-stage renal disease. Patient denies any nausea , vomiting, chest pain. PHYSICAL EXAMINATION: GENERAL: Patient is awake, alert. VITAL SIGNS: Afebrile, pulse 75, breathing 16, blood pressure 174/72. HEAD/NECK: Normocephalic. Atraumatic. EYES: EOMI. No deformity. EARS: Clear. No ulcers. NOSE: Intact. No lesions. MOUTH: Clear. No discharge. THROAT: Clear. No exudate. LUNGS: Clear. No crackles. CARDIAC: S1, S2. No rub. ABDOMEN: Benign. BS+. GENITALIA/RECTUM: Jarrett absent. BACK/EXTREMITIES: Edema 0+ Ulcer- NEUROLOGICAL: Alert and motor intact. SKIN: Rash- Bruise- LYMPHATICS: Edema- Ulcer- LABORATORY DATA: Show hemoglobin is 10, potassium 4.6. ASSESSMENT AND RECOMMENDATIONS: 1. Stage 6 chronic kidney disease, stable. 2. Hypertension, stable. 3. Anemia, stable. 4. Medications based on glomerular filtration rate are appropriate.
[2017-12-09] MEDS ORDERED: Non-Formulary Item 1 EACH (Hydralazine Hcl [Hydralazine Hcl] 100 MG) PO SCH (15:00)
[2017-12-09] MEDS ORDERED: Artificial Tear Sol 15 ML BOT EA EYE PRN (15:04)
[2017-12-09] MEDS ORDERED: Lidocaine 2% Jelly 5 ML TUBE TOP PRN (15:04)
[2017-12-09] MEDS: hydrALAZINE 25 MG TAB PO SCH ×2 (16:09→20:20)
--- NOTE | 2017-12-09 20:53 | CON ---
DATE OF CONSULTATION: 12/09/2017 REASON FOR CONSULTATION: Abdominal pain, abnormal GI imaging, hematochezia. CONSULTING PHYSICIAN: Dr. Sharri Mendosa. HISTORY OF PRESENT ILLNESS: The patient is an 82-year-old female with past medical history of end-st age renal disease on hemodialysis, diabetes, hypertension, mild dementia, and chronic anemia who init ially presented with significant weakness. Per the patient and her patient's daughter, she said that she is having increased nausea, vomiting, and abdominal pain that has been present for the last 5-6 days. The abdominal pain was located in the lower abdominal quadrants characterizes as a sharp, stab samira type pain but then would radiate to the entire abdomen, was intermittent with periods of complet e pain relief and would reach a severity of 6-7/10. There was no clear exacerbating factors but was better with the administration of the pain medications that she was receiving in the hospital. She a lso states that she would have normally have one solid bowel movement per day 1-2 solid bowel movemen ts per day, but that required increased straining and pressure to the abdomen in order to facilitate defecation. More recently, she has been having the sensation that she needed to have a bowel movemen t but was unable to do so. Also, of note, approximately 1 week ago, she said that she had harder to pass stool that resulted in increased rectal type pain that has continued onto the present day. Monroeyessy amaya, prior to admission, she started having more semi-solid to liquid type bowel movements characteri zes 6-7 liquid black stools for the last 1-2 days. Upon admission to the ER, she was noted to have d arker colored stools per the ER staff, but unfortunately rectal exam and visualization by the nurse zonia marci the [place] was not able to confirm these findings. REVIEW OF SYSTEMS: A 10-category review of systems was obtained with all responses negative except f or the pertinent positives as listed in the HPI. PAST MEDICAL HISTORY: As per HPI. PAST SURGICAL HISTORY: Arteriovenous fistula placement in the right upper extremity, cholecystectomy , , and eye surgery. FAMILY HISTORY: Denies any GI malignancies. SOCIAL HISTORY: Denies any tobacco, alcohol or illicit drug use. OUTPATIENT MEDICATIONS: Reviewed. ALLERGIES: LINAGLIPTIN and ADHESIVE TAPE. PHYSICAL EXAMINATION: VITAL SIGNS: Temperature 98.6, pulse 65, blood pressure 134/59, respiratory rate 16, satting 95% on room air. GENERAL: The patient is lying in bed in no acute distress, alert and oriented x3, Cameroonian speaking o nly. NECK: Supple. No JVD noted. CARDIOVASCULAR: Regular rate and rhythm. A 3/6 systolic murmur was best heard at the left lower demetri rnal border with no discernible gallops or rubs. RESPIRATORY: Clear to auscultation bilaterally with no discernible wheezes or rales. ABDOMEN: Normoactive bowel sounds, soft, nontender, nondistended. EXTREMITIES: No cyanosis, clubbing or edema. LABORATORY DATA: CBC with a white blood cell count of 13.6, hemoglobin 10, hematocrit 29.1, platelet s 131. Chemistry with the sodium of 130, potassium 4.6, chloride 95, CO2 of 25, BUN 23, creatinine 5 .09, glucose 82. IMAGING DATA: CT of the abdomen and pelvis obtained on 12/08/2017 showed a large amount of stool dis tending the rectum, raising the possibility of stercoral proctocolitis. There was also a prominent a mount of edema in the presacral space posterior to the rectum, a 5 cm low attenuation lesion was also seen indenting the anterior upper aspect of the liver of uncertain etiology but could be a nonacute hematoma and it does not appear to be a neoplasm. Also seen were hepatic steatosis and small bilater al pleural effusions. ASSESSMENT AND PLAN: The patient is an 82-year-old female with past medical history of end-stage jayce al disease on hemodialysis, diabetes, hypertension, chronic anemia, mild dementia, and constipation a s seen on imaging as well as rectal pain consistent with an anal fissure. Constipation. The patient is presenting with a history of increased weakness, nausea, vomiting, abdo facundo pain, and constipation has been present for approximately the last week. Her pain was characte rized as sharp, stabbing and located in the lower abdominal quadrants with no clear exacerbating fact ors, but alleviated with medications she has been given during her brief stays in the ER; however, renée krishnamurthy was given MiraLax shortly after admission and has had a number of bowel movements since admission a nd has a complete resolution of her nausea, vomiting, and abdominal pain. With the findings on the C T, this is most consistent with constipation, but not necessarily stercoral proctocolitis. In either case, the treatment of her constipation and proctocolitis secondary to stercoral ulcerations would b e a higher fiber diet and MiraLax along with her significant constipation. It also sounds as if she had a harder to pass stool that resulted in the formation of an anal fissure resulting in increased r ectal pain for the patient and possible withholding type behavior secondary to pain. RECOMMENDATIONS: 1. We would continue the patient on MiraLax 1 capsule twice daily as part of constipation regimen. 2. We would place the patient on a higher fiber diet with fodmap guidance in order to facilitate hav ing a bowel movement and correction of her constipation. 3. I have talked to pharmacy about obtaining nitroglycerin 0.4% rectal cream for treatment of her an al fissure secondary to constipation. 4. We would continue to trend H&H and transfuse as necessary to maintain an H&H of 7/. 5. We would continue to monitor for signs of GI bleeding with a history of black stools, it is possi rebekah concerning for melena so if she experiences any sudden decrease in her H&H, or continues to have black stool during this admission, I would then consider possible upper endoscopy for evaluation. We will continue to follow. Please call with any questions.
[2017-12-10 05:08] LABS: #Eosinphils 0.4 thou/uL (0.0-0.7); #Lymphocytes 1.2 thou/uL (1.20-3.40); #Monocytes 0.6 thou/uL (0.11-0.59); #Neutrophils 7.6 thou/uL (1.40-6.50); %Basophils 0.2 % (0.0-1.0); %Eosinophils 4.5 % (0.0-10.0); %Lymphocytes 12.2 % (21.0-51.0); %Monocytes 6.5 % (0.0-10.0); %Neutrophils 76.6 % (42.0-75.0); Hemoglobin 9.3 g/dL (12.0-16.0); Mean Corpuscular HGB CONC 34.7 g/dL (32.0-36.0); Mean Corpuscular Hemoglobin 33.8 pg (27.0-31.0); Mean Corpuscular Volume 97.6 fL (78.0-98.0); Platelet Count 129 thou/uL (130-400); Red Blood Cell (RBC) Count 2.75 mill/uL (4.20-5.40); White Blood Cell (WBC) Count 9.9 thou/uL (4.8-10.8)
[2017-12-10] MEDS: metroNIDAZOLE 500 MG in Premix Bag 1 BAG IVPB SCH ×2 (05:17→14:10)
[2017-12-10] MEDS: Polyethylene Glycol 3350 17 GM Packet PO SCH ×2 (09:45→17:45)
[2017-12-10] MEDS: hydrALAZINE 25 MG TAB PO SCH ×2 (10:49→17:41)
[2017-12-10] MEDS: Carvedilol 25 MG TAB PO SCH (10:50)
[2017-12-10] MEDS: Amlodipine 5 MG TAB PO SCH (10:50)
[2017-12-10] MEDS: Lisinopril 20 MG TAB PO SCH (10:50)
--- NOTE | 2017-12-10 13:13 | PRG ---
DATE OF SERVICE: 12/10/2017 SUBJECTIVE: Ms. Mistry says her abdominal pain is all resolved. Rectal pain is improved. She bhandari s had several loose liquid bowel movements today with no concern for melena or hematochezia. OBJECTIVE: VITAL SIGNS: Temperature 98.5, pulse 67, blood pressure 153/68, and 99% oxygen saturation on room ai r. LABORATORY STUDIES: Hemoglobin 9.3, WBC 9.9, platelets 129, glucose 112. ASSESSMENT AND PLAN: 1. Constipation. 2. Rectal pain. 3. Possible stercoral proctocolitis, secondary to constipation. The patient has had resolution of a bdominal pain and loss of bowel movements induced with MiraLax. It appears that she has been taking a lot of Lomotil on an outpatient basis. She is probably taking too much of this, causing relative s tool impaction with overflow diarrhea around this area. I discussed with her and her daughters that a better strategy would be actually to stop the Lomotil for now, continue with MiraLax once per day. Also, use high fiber diet and a stool softener. From my standpoint, she appears clinically stable f or discharge. GI will sign off. Please call back with any questions or concerns.
--- NOTE | 2017-12-10 13:28 | DIS ---
DATE OF ADMISSION: 12/08/2017 DATE OF DISCHARGE: 12/10/2017 PRIMARY CARE PHYSICIAN: Evelyn Rees M.D. DISCHARGE DIAGNOSES: 1. Constipation. 2. Stercoral proctocolitis. 3. Diabetes mellitus, type 2. 4. Lower gastrointestinal bleed, likely noncolonic. 5. Essential hypertension. 6. End-stage renal disease, on hemodialysis. CONSULTATIONS: 1. Nephrology, Dr. Elan Merlos. 2. Gastroenterology, Dr. Jose Tavares followed by Dr. Jad Hammond. PROCEDURES: None. HISTORY AND PHYSICAL: Ms. Mistry is an 82-year-old Latin-Burkinan female, who presented to the em ergency department with nausea, vomiting, and possible melena. She started having problems on 2017 and returned back on 12/05/2017 with worsening symptoms. She has had to come back to the emergency department. There, she had a temperature of 102.1, 100.[address] scan showed a stercoral proctocolitis and we were called for admit. She received a liter of normal saline, Flagyl, and Cipro intravenously. HOSPITAL COURSE: The patient was seen and examined by Dr. Sharri Mendosa. She was continued on antibio tics. GI was consulted. Nephrology was consulted due to her dialysis need. Overnight, 12/08/2017 to 12/09/2017, the patient improved. She was seen by GI. Dr. Tavares recommende d initiation of MiraLax and observation. She was able to have multiple bowel movements over that 24-hour period, tolerated p.o., and had no mo re abdominal pain, nausea, vomiting, and was seen by Dr. Hammond, her normal chief crew scheduler, on 6. He cleared her for discharge with outpatient followup with his PA in about 2 to 3 weeks. DISCHARGE PHYSICAL EXAMINATION: The patient was seen and examined on the day of discharge. Discharge plan and disposition discussed with the patient and her daughter [id number] at the [facility]. DISCHARGE MEDICATIONS: New Medications: 1. MiraLax 17 grams p.o. daily, dissolved in liquid. Medicines to continue: 1. Amlodipine 5 mg p.o. b.i.d. 2. Carvedilol 25 mg p.o. b.i.d. 3. Hydralazine 100 mg p.o. t.i.d. 4. Lisinopril 40 mg p.o. b.i.d. 5. Aspirin 81 mg daily. 6. Lomotil to discontinue. 7. Glipizide 2.5 mg extended release p.o. q.a.m. 8. Multivitamin daily. 9. Omeprazole 10 mg p.o. b.i.d. 10. Zofran 4 mg p.o. q.4 hours p.r.n. nausea and vomiting. FOLLOWUP APPOINTMENTS: 1. Primary care physician within a week. 2. Dr. Hammond or his PA in 2-3 weeks. DISCHARGE DIET: Heart healthy diabetic diet recommended. DISCHARGE ACTIVITY: Per cardiopulmonary limits. DISCHARGE CONDITION: Stable. DISPOSITION: Being discharged home via private vehicle with her daughter.
--- NOTE | 2017-12-10 16:37 | PRG ---
DATE OF SERVICE: 12/10/2017 NEPHROLOGY PROGRESS NOTE SUBJECTIVE: Patient was seen and examined at bedside and overnight events noted. Patient denies any shortness of breath or chest pain or palpitation. No history of nausea or vomiting or diarrhea or f ever or chills or cramps. OBJECTIVE: GENERAL: This is a thin-built female in no apparent distress. VITAL SIGNS: Temperature 98.5, pulse 67, respirations 16, blood pressure 153/68. HEENT: Atraumatic, normocephalic. Oral mucosa is moist. NECK: Supple. CARDIOVASCULAR: S1, S2 heard. Rate and rhythm regular. RESPIRATORY: Clear to auscultation. GASTROINTESTINAL: Abdomen is soft. MUSCULOSKELETAL: No tenderness. No edema. DERMATOLOGIC: No skin rash. NEUROLOGIC: Alert and awake and oriented x3. No focal neurologic deficits. Moving all the extremiti es. PSYCHIATRIC: Mood and affect normal. LABORATORY DATA: Not done today. ASSESSMENT AND PLAN: 1. End-stage renal disease. Continue dialysis Sunday, Sunday, and Sunday. 2. Hypertension, stable. 3. Anemia. 4. Edema. 5. Continue dialysis Sunday, Sunday, and Sunday as tolerated.
[2017-12-10 17:46] VITALS: BP 168/70
[2017-12-10 20:19] VITALS: TEMP 98.9
--- NOTE | 2017-12-11 11:03 | PQF ---
EMILIANO BARAHONA ERIC [id number] [facility]257 [id number] CLINICAL DOCUMENTATION IMPROVEMENT CLARIFICATION FORM: ICD-10 Updated PLEASE DO AN ADDENDUM TO THE PROGRESS NOTE WITH ANY DOCUMENTATION UPDATES OR ADDITIONS AND CARRY THROUGH TO DC SUMMARY. THANK YOU. DATE: 12-11-17 ATTN: DR. CHEPE RAMESH Please exercise your independent, professional judgment in responding to the clarification form. Clinical indicators are provided on the bottom of this form for your review Please check appropriate box(es): [ ] Sepsis due to proctocolitis [ x ] SIRS due to non-infectious process (please specify etiology) [ ] with organ dysfunction [ x ] without organ dysfunction [ ] Localized infection without sepsis [ ] Other diagnosis [ ] Unable to determine For continuity of documentation, please document condition throughout progress notes and discharge summary. Thank You. CLINICAL INDICATORS - SIGNS / SYMPTOMS / LABS ED: LIKELY PROCTOCOLITIS; GI BLEED T 102.1 RECTAL H&P: SATURATION 91% ON RA WBC 12.7 / 13.2 / 14.8 / 13.6 BANDS 2 / 13 LACTIC ACID - WNL CT: POSSIBILITY OF STEROCORAL PROCTOCOLITIS; SMALL BILATERAL PLEURAL EFFUSIONS; 12-08 / 12-09 (JUAN MANUEL) SEPSIS D/T PROCTOCOLITIS RISK FACTORS H&P: STERCORAL PROCTOCOLITIS; ESRD TREATMENTS: ED: 12-08 IV CIPRO; FLAGYL; OFIRM MAR: IV FLAGYL 12-08 / 12-09 / 12-10 CPOE: GI CONSULT; NEPHROLOGY CONSULT; THANK YOU, REGLA (This form is maintained as a part of the permanent medical record) 2014 [employer]. All Rights Reserved Regla Rabago RN, BS [email or web address]
== END 2017-12-10 18:30 | disposition home or self-care (01) | DRG 391 ==
LOC: ERS 09:40 → 2NO 15:20
PROVIDERS: ADMIT Family Medicine; ATTEND Family Medicine
DX: K59.00 Constipation, unspecified (principal); N18.6 End stage renal disease; K92.1 Melena; R65.10 Systemic inflammatory response syndrome (SIRS) of non-infectious origin without acute organ dysfunction; I12.0 Hypertensive chronic kidney disease with stage 5 chronic kidney disease or end stage renal disease; K62.89 Other specified diseases of anus and rectum; Z99.2 Dependence on renal dialysis; E11.22 Type 2 diabetes mellitus with diabetic chronic kidney disease; D64.9 Anemia, unspecified; Z79.82 Long term (current) use of aspirin; Z86.73 Personal history of transient ischemic attack (TIA), and cerebral infarction without residual deficits; F03.90 Unspecified dementia, unspecified severity, without behavioral disturbance, psychotic disturbance, mood disturbance, and anxiety; Z91.81 History of falling; K52.9 Noninfective gastroenteritis and colitis, unspecified
CPT/HCPCS: 36415; 36416; 51701; 71045; 74177; 80048; 80053; 81003; 81015; 82274; 82553; 83605; 84484; 85025; 85610; 85730; 86850; 86900; 86901; 87324; 87449; 93005; 96365; 96367; 96375; A4216; A4353; C9113; J0131; J0744

== ENCOUNTER 2018-03-21 14:35 | Emergency (ER) | payer MEDICARE, OTHER ==
[2018-03-21 16:33] LABS: #Eosinphils 0.5 thou/uL (0.0-0.7); #Lymphocytes 0.9 thou/uL (1.20-3.40); #Monocytes 0.3 thou/uL (0.11-0.59); #Neutrophils 2.3 thou/uL (1.40-6.50); %Basophils 0.8 % (0.0-1.0); %Eosinophils 11.4 % (0.0-10.0); %Lymphocytes 21.4 % (21.0-51.0); %Monocytes 7.7 % (0.0-10.0); %Neutrophils 58.6 % (42.0-75.0); Hemoglobin 11.6 g/dL (12.0-16.0); INR-International Normal Ratio 1.1; Mean Corpuscular HGB CONC 32.2 g/dL (32.0-36.0); Mean Corpuscular Hemoglobin 31.7 pg (27.0-31.0); Mean Corpuscular Volume 98.5 fL (78.0-98.0); Mean Platelet Volume 9.2 fL (7.4-10.4); Platelet Count 111 thou/uL (130-400); Prothrombin Time 14.3 SEC (12.0-14.7); Red Blood Cell (RBC) Count 3.66 mill/uL (4.20-5.40)
[2018-03-21 16:46] LABS: MDiff Complete? YES; Ovalocytes SLIGHT = 2-5 cells (100X) (0-1/hpf); PLT Morphology Comment Appears Decreased
[2018-03-21 16:50] LABS: ALT (SGPT) 24 U/L (8-55); AST (SGOT) 37 U/L (5-34); Albumin 4.1 g/dL (3.4-4.8); Alkaline Phosphatase 76 U/L (40-150); Anion Gap 12 mmol/L (10-20); BUN (Urea Nitrogen) 18 mg/dL (9.8-20.1); Bilirubin, Total 0.6 mg/dL (0.2-1.2); Calc. Creatinine Clearance 0 mL/min (70-130); Calcium 9.4 mg/dL (7.8-10.44); Carbon Dioxide 34 mmol/L (23-31); Chloride 100 mmol/L (98-107); Estimated GFR-MDRD 10; Globulin 3.2 g/dL (2.4-3.5); Glucose 152 mg/dL (83-110); Protein, Total 7.3 g/dL (6.0-8.3); Sodium 142 mmol/L (136-145)
== END 2018-03-21 17:31 | disposition home or self-care (01) ==
LOC: ERS 14:35
DX: T82.838A Hemorrhage due to vascular prosthetic devices, implants and grafts, initial encounter (principal); F03.90 Unspecified dementia, unspecified severity, without behavioral disturbance, psychotic disturbance, mood disturbance, and anxiety; I12.0 Hypertensive chronic kidney disease with stage 5 chronic kidney disease or end stage renal disease; E11.22 Type 2 diabetes mellitus with diabetic chronic kidney disease; N18.6 End stage renal disease; Z99.2 Dependence on renal dialysis; Z79.899 Other long term (current) drug therapy; Z79.82 Long term (current) use of aspirin
CPT/HCPCS: 36415; 80053; 85025; 85610; 99284

== ENCOUNTER 2018-07-02 09:25 | Outpatient (CLI) | payer MEDICARE, OTHER ==
--- NOTE | 2018-07-02 10:45 | RAD ---
CHEST TWO VIEWS: HISTORY: Shortness of breath. COMPARISON: 12/05/2017 FINDINGS: Two views of the chest show an enlarged but stable cardiomediastinal silhouette. A cardiac monitorin g device projects over the left chest wall. There is no evidence of consolidation, mass, or pleural effusion. There is remodeling of the right proximal humerus, unchanged. IMPRESSION: No evidence of acute cardiopulmonary disease. POS: [facility]
== END 2018-07-02 09:26 | disposition home or self-care (01) ==
LOC: BICRAD 09:25
PROVIDERS: ATTEND Family Medicine
DX: R06.02 Shortness of breath (principal)
CPT/HCPCS: 36415; 71046; 83036

== ENCOUNTER 2019-04-14 12:25 | Emergency (ER) | payer MEDICARE, OTHER, MEDICAID ==
[2019-04-14 13:52] LABS: #Eosinphils 0.2 thou/uL (0.0-0.7); #Lymphocytes 0.9 thou/uL (1.20-3.40); #Monocytes 0.3 thou/uL (0.11-0.59); #Neutrophils 3.3 thou/uL (1.40-6.50); %Basophils 0.6 % (0.0-1.0); %Eosinophils 3.7 % (0.0-10.0); %Lymphocytes 18.5 % (21.0-51.0); %Monocytes 5.4 % (0.0-10.0); %Neutrophils 71.8 % (42.0-75.0); Hemoglobin 10.6 g/dL (12.0-16.0); Mean Corpuscular HGB CONC 34.1 g/dL (32.0-36.0); Mean Corpuscular Volume 96.8 fL (78.0-98.0); Mean Platelet Volume 7.8 fL (7.4-10.4); Platelet Count 128 thou/uL (130-400); RBC Distribution Width 12.5 % (11.5-14.5); Red Blood Cell (RBC) Count 3.22 mill/uL (4.20-5.40); White Blood Cell (WBC) Count 4.6 thou/uL (4.8-10.8)
[2019-04-14 14:21] LABS: ALT (SGPT) 16 U/L (8-55); AST (SGOT) 30 U/L (5-34); Albumin 4.2 g/dL (3.4-4.8); Alkaline Phosphatase 132 U/L (40-110); Anion Gap 14 mmol/L (10-20); BUN (Urea Nitrogen) 9 mg/dL (9.8-20.1); Bilirubin, Total 0.8 mg/dL (0.2-1.2); Calc. Creatinine Clearance 0 mL/min (70-130); Calcium 9.2 mg/dL (7.8-10.44); Carbon Dioxide 30 mmol/L (23-31); Chloride 97 mmol/L (98-107); Estimated GFR-MDRD 16; Globulin 3.4 g/dL (2.4-3.5); Glucose 117 mg/dL (83-110); Potassium 3.1 mmol/L (3.5-5.1); Protein, Total 7.6 g/dL (6.0-8.3); Sodium 138 mmol/L (136-145)
== END 2019-04-14 16:28 | disposition left against medical advice (07) ==
LOC: ERS 12:25
DX: Z53.21 Procedure and treatment not carried out due to patient leaving prior to being seen by health care provider (principal)
CPT/HCPCS: 36415; 80053; 85025; 93005

== ENCOUNTER 2019-04-16 12:40 | Inpatient (IN) | payer MEDICARE, MEDICAID ==
[~2019-04-16 12:40] MED LIST: Iopamidol-370 76% 500 ML 1 ML ONE
[2019-04-16 13:37] LABS: #Eosinphils 0.1 thou/uL (0.0-0.7); #Lymphocytes 0.7 thou/uL (1.20-3.40); #Monocytes 0.1 thou/uL (0.11-0.59); #Neutrophils 3.3 thou/uL (1.40-6.50); %Basophils 0.2 % (0.0-1.0); %Eosinophils 2.3 % (0.0-10.0); %Lymphocytes 17.3 % (21.0-51.0); %Monocytes 3.3 % (0.0-10.0); %Neutrophils 76.9 % (42.0-75.0); Hemoglobin 10.4 g/dL (12.0-16.0); Mean Corpuscular HGB CONC 34.7 g/dL (32.0-36.0); Mean Corpuscular Hemoglobin 33.5 pg (27.0-31.0); Mean Corpuscular Volume 96.5 fL (78.0-98.0); Mean Platelet Volume 7.3 fL (7.4-10.4); Platelet Count 107 thou/uL (130-400); RBC Distribution Width 12.3 % (11.5-14.5); White Blood Cell (WBC) Count 4.3 thou/uL (4.8-10.8)
[2019-04-16 14:12] LABS: ALT (SGPT) 19 U/L (8-55); AST (SGOT) 34 U/L (5-34); Alkaline Phosphatase 124 U/L (40-110); Anion Gap 13 mmol/L (10-20); BUN (Urea Nitrogen) 8 mg/dL (9.8-20.1); Bilirubin, Total 0.8 mg/dL (0.2-1.2); Calc. Creatinine Clearance 0 mL/min (70-130); Calcium 8.9 mg/dL (7.8-10.44); Carbon Dioxide 31 mmol/L (23-31); Chloride 98 mmol/L (98-107); Estimated GFR-MDRD 16; Glucose 136 mg/dL (83-110); Potassium 3.3 mmol/L (3.5-5.1); Sodium 139 mmol/L (136-145)
--- NOTE | 2019-04-16 14:35 | CT ---
Head CT without contrast 04/16/2019: COMPARISON: 02/28/2017 HISTORY: Fall, hypertension TECHNIQUE: Axial CT imaging at 5 mm intervals from vertex through skull base without contrast FINDINGS: There is new opacification of the tympanic cavity and mastoid air cells on the left which c ould signify otomastoiditis the proper clinical setting. No acute osseous abnormality. No intracranial hemorrhage, midline shift, or mass effect. There is hyperdense material layering within the posterior horns of bilateral lateral ventricles, new when compared to the prior examination. Similar findings noted in the temporal horn on the right. There is periventricular hypodensity, new when compared to the prior examination. The lateral ventric les and third ventricle appear enlarged when compared to the prior examination. The periventricular hypodensity may be on the basis of ventriculomegaly related transependymal flow of CSF. IMPRESSION: There is new enlargement of the third ventricle and bilateral lateral ventricles with hyp erdense material layering within the posterior horns of bilateral lateral ventricles. Periventricular hypodensity noted, which may signify transependymal flow of CSF. Question otomastoidi tis on the left. Material layering within the posterior horns of bilateral lateral ventricles may be on the basis of i nfection or hemorrhage. Recommend consideration for follow-up brain MRI. Dr. Kirkland made aware at 2:30 PM 04/16/2019. Code CR
[2019-04-16 15:55] LABS: Color Of CSF Supernatant STRAW (Colorless); Tube # 2; Unspun CSF Color PINK (Colorless)
[2019-04-16] MEDS ORDERED: Cefepime 2 GM VIAL ONE ×2 (16:01→17:46)
[2019-04-16 16:08] LABS: CSF, Glucose 65 mg/dl (40-70); CSF, Protein 95 mg/dL (15-40)
[2019-04-16 16:30] LABS: CSF Source CSF; Clarity Cloudy/Turbid (Clear); Tube # 1
[2019-04-16 16:43] LABS: Cell Count Non Hematic 12 %; Eosinophils 4 %; Lymphocytes 47 %; Segmented Neutrophils 37 %
[2019-04-16 16:49] LABS: Bacteria/HPF 4+ HPF (None Seen); Squamous Epithelial 0-3 HPF (0-3); WBC/HPF Greater than 50 HPF (0-3)
[2019-04-16 16:51] LABS: Bilirubin Negative (Negative); Blood, Urine Trace (Negative); Glucose, Urine (Dipstick) Negative (Negative); Leukocyte Small (Negative); Nitrite Negative (Negative); Protein, Urine (Dipstick) > or equal to 300 mg/dL (Neg-Trace); Urobilinogen 0.2 mg/dL (Less than 2)
[2019-04-16 16:54] LABS: Clarity Clear (Clear)
[2019-04-16 16:57] LABS: CSF Source CSF; Clarity Cloudy/Turbid (Clear); Tube # 4
[2019-04-16 17:01] LABS: Cell Count Non Hematic 9 %; Eosinophils 1 %; Lymphocytes 45 %; Segmented Neutrophils 45 %
--- NOTE | 2019-04-16 17:05 | CT ---
INDICATION: Stroke COMPARISON: 02/28/2017, noncontrast head CT performed earlier today FINDINGS: CTA OF THE HEAD WITH AND WITHOUT CONTRAST: POSTCONTRAST CT OF BRAIN: Hemorrhage: Redemonstration of intraventricular hemorrhage. [place]hem[place]/Infarction: None. Midline Shift: None. Hydrocephalus: Redemonstration of dilatation of ventricular system with confluent white matter hypod ensities predominantly periventricular in location Skull and Extracranial Soft tissues: Normal. CTA OF THE BRAIN: Right ICA: Patent. Right MCA: Patent. Right SONIYA: Patent. ACOM: Patent. Left ICA: Patent. Left MCA: Patent. Left SONIYA: Patent. PCOMs: Patent. Vertebral arteries: Patent. Basilar Artery: Patent. automotive repair technician: Patent. Incidentals: None. IMPRESSION: 1. No hemodynamically significant stenosis, occlusion or aneurysmal formation. 2. Stable intraventricular hemorrhage, dilatation of the ventricular system and probable transependym al flow CSF.
--- NOTE | 2019-04-16 17:09 | CT ---
INDICATION: Possible posterior circulation stroke. Cerebellar stroke symptoms. COMPARISON: None FINDINGS: CTA OF THE NECK WITH CONTRAST: Right CCA: Patent. Calcified plaque in the distal common carotid, carotid bifurcation and proximal i nternal carotid artery. No significant stenosis based upon NASCET criteria. Right ICA: Patent. Right Subclavian: Patent. Right Vertebral Artery: Patent. Left CCA: Patent. Calcified plaque in the distal common carotid, carotid bifurcation and proximal in ternal carotid artery. No significant stenosis based upon NASCET criteria. Left ICA: Patent. Left Subclavian: Patent. Left Vertebral Artery: Patent. Aerodigestive tract: Patent. No obvious mucosal abnormality. Limited evaluation of the intradural or al cavity. Midline fatty raphae of the tongue is preserved. Parotids/Submandibular/Thyroid glands: Normal. Lymph nodes: No pathologically enlarged lymph nodes. Lung Apices: Nonspecific patchy groundglass opacities in the lung parenchyma. Additionally, there is nonspecific septal thickening. Correlate for edema. Bones: No acute abnormality. There are varying degrees of central canal stenosis and foraminal narro wing on the basis of the unchanged. Limited evaluation by technique. Incidentals: None. IMPRESSION: 1. No hemodynamically significant stenosis, occlusion or aneurysmal formation. No significant stenosi s based upon NASCET criteria. 2. Septal thickening and groundglass opacities in lung apices. Correlate for edema.
[2019-04-16] MEDS ORDERED: Dextrose 5% in Water 1,000 ML IV PRN (21:30)
[2019-04-16] MEDS ORDERED: [UNRECOGNIZED DRUG - REMARK] FS SCH (21:30)
[2019-04-16] MEDS ORDERED: HumaLOG 300 UNITS/3 ML VIAL SC PRN (21:30)
[2019-04-16] MEDS ORDERED: Dextrose 50% Abboject 50 ML SYRINGE SLOW IVP PRN (21:30)
--- NOTE | 2019-04-16 22:13 | HP ---
REASON FOR ADMISSION: Frequent falls and change in mental status. HISTORY OF PRESENT ILLNESS: This is an 83-year-old female patient, who has history of end-stage renal disease and undergoes hemodialysis. She was brought from the dialysis unit because of left eye being droopy. A CT of the head did show possible subarachnoid bleed. The patient did not complain of headaches, but she does have history of dementia and recently her memory has been getting worse as per her daughter, who was at the bedside, also for the past couple of weeks that she has been having difficulty with ambulation. She has been falling a lot and could not keep her balance. These symptoms have been getting worse day by day and in the past couple days her memory got much worse. Also, last night, she developed a fever, but the patient does not have any shortness of breath. She does not have any cough, chills, or recent travel. The patient went to her scheduled hemodialysis session today and was not feeling well also. The dialysis team noticed left eye droopiness, which the patient does not have here in the emergency room and this triggered her being sent to our emergency room, the patient did undergo an LP that showed evidence of blood, also WBCs. She was started on IV antibiotics. Neurosurgery was called, they advised a CTA of the head. The patient did get that test and Neurosurgery also advised an MRI of the brain. We are in the process of ordering that test. The patient is lying in her stretcher, does not appear in distress. She does have swelling of her left hand due to extravasation of IV contrast as per family members. While she was having a CT scan, her IV access did not hold the contrast. Otherwise, she does not have any headaches and appears to be pleasant and comfortable. Her daughter also did add that her blood pressure has been on the high side around 180/91, and she has not been eating well. The patient does take aspirin. The daughter does not report any foul smelling urine or dysuria. Reviewing her records, the patient was admitted to our hospital approximately a year and 3 months ago for constipation and stercoral proctocolitis, also lower gastrointestinal bleed, likely non colonic. She was discharged in stable condition and since then she has been doing well until recently. PAST MEDICAL HISTORY: 1. Diabetes. 2. High blood pressure. 3. Stroke, status post tPA 3 years ago with no residual deficits. 4. She does have a loop recorder for possible arrhythmia, but has been giving normal results. 5. Dementia. 6. End-stage renal disease, on hemodialysis. SOCIAL HISTORY: She quit smoking 10 years ago. ALLERGIES: DOES NOT HAVE ANY DRUG ALLERGIES. REVIEW OF SYSTEMS: All systems reviewed except for the above-mentioned, found to be negative. PHYSICAL EXAMINATION: GENERAL: Awake, alert, oriented x2. Does not appear in distress. VITAL SIGNS: Her blood pressure is 153/68, heart rate of 67, temperature is 98.9. HEENT: Head is nontraumatic, normocephalic. Pupils equal, reactive. Extraocular movements are intact. Nonicteric sclerae. Well injected conjunctivae. Oral mucosa normal. Nasal mucosa normal. NECK: Supple. No adenopathy or thyroid palpable. Trachea is midline. No supraclavicular adenopathy. HEART: S1 and S2 regular. No murmur. No murmur, gallops, or friction rubs noted. No displacement of PMI. LUNGS: Poor inspiratory effort, but no wheezes, no rhonchi, no crackles. ABDOMEN: Bowel sounds are positive. Nontender abdomen. EXTREMITIES: No lower extremity edema. No cyanosis. NEUROLOGIC: She does have tremors involving mostly her upper extremities. She does have dysmetria. Her cranial nerves appear to be intact. Examination is limited by her dementia. She is able to move her bilateral lower extremities. LABORATORY DATA: Blood work shows WBC of 4.3, hemoglobin of 10.4, platelets of 107. Sodium is 139, potassium 3.3, BUN 8, creatinine 2.8. Her CSF showed cloudy turbid fluid. Segmented neutrophils 37%, lymphocytes 47%, 32,178 RBCs in initial tube with tube #4 showed 24,258 RBCs, protein 95. CTA of the head shows no hemodynamically significant stenosis, occlusion, or aneurysmal formation. No significant stenosis based upon NASCET criteria of septal thickening and ground-glass opacities in the lung gap. This is correlated with edema. A CT of the head shows new enlargement of the 3rd ventricle and bilateral lateral ventricles with hyperdense material layering in the posterior horns of bilateral lateral ventricles. Periventricular hypodensity noted may signify transependymal flow of CSF, question of otomastoiditis on the left, also showed material layering within the posterior horns of bilateral lateral ventricles, may be on the basis of infection or hemorrhage. ASSESSMENT AND PLAN: This is an 83-year-old female patient, who is presenting with change in mental status. Also, frequent falls. The CT of the head did show a suspected intraventricular bleed. CSF positive for RBCs and WBCs, possibly reflecting an infection, but most definitely a hemorrhage. 1. Neuro: The patient will be admitted to the intensive care unit. Neurosurgery is on the way to see her and provide their recommendation. Until then, she will be on IV cefepime and vancomycin for possible CUSTOMS MANAGER infection and we will be awaiting the results of her MRI. 2. Cardiac: The patient will be on blood pressure control as per surgery recommendation. 3. Diabetes. The patient will be on insulin sliding scale. 4. Renal: The patient will continue to undergo her scheduled hemodialysis. 5. She should be on SCDs for deep venous thrombosis prophylaxis. 6. The patient usually is on aspirin. This will be held. 7. The patient maybe has urinary tract infection. This will be covered with cefepime. 8. I have discussed the code status with her daughter and she wishes her to be a full code. TIME SPENT: One hour of critical care time was spent to manage the patient. Job ID: [id number]
[2019-04-16] MEDS ORDERED: hydrALAZINE 20 MG/ML VIAL ONE (22:54)
[2019-04-17] MEDS ORDERED: Acetaminophen 325 MG TAB PO PRN (00:07)
[2019-04-17] MEDS ORDERED: Ondansetron PF 4 MG/2 ML Vial IVP PRN (00:07)
[2019-04-17] MEDS ORDERED: Ondansetron ODT 4 MG TAB SL PRN (00:07)
--- NOTE | 2019-04-17 02:41 | CON ---
DATE OF CONSULTATION: 04/16/2019 CHIEF COMPLAINT: Confusion, fatigue, multiple recent falls, elevated blood pressure. HISTORY OF PRESENT ILLNESS: Ms. Mistry is a very pleasant 83-year-old female, who presented to the ER earlier today for evaluation of confusion, fatigue, multiple recent falls, and elevated blood pressure. The patient has two daughters present at bedside who provided majority of history. They report the patient has dementia at baseline, however she has been seemingly more confused over the last 1 to 2 weeks. Also they report she has encountered more than 10 recent falls. She has been more fatigued and wanting to lay in bed most of the day. She was complaining of neck pain approximately 2 weeks ago; however, she denies any current pain in her neck. Her daughter reports that she was burning up last night with a fever, but they did not check her temperature. The patient was brought to the ER after completing dialysis earlier today. Her daughter reports that her blood pressure has been elevated recently in the 180-190s/90s-100s. The patient denies headache at this time. The patient is on 81 mg aspirin, but no other blood thinners. Upon ED arrival, CT of the brain was completed, which revealed increased ventricular size compared to imaging from February 2017, as well as layering in the posterior horns. CTA was negative for any acute abnormalities. A lumbar puncture was completed in the emergency department and a CSF was obtained after one attempt that was reportedly cloudy and bloody. Reported an opening pressure of 14. CSF glucose was reportedly within normal limits; however, protein was slightly elevated. Positive xanthochromia. The patient was placed on cefepime and vancomycin. PHYSICAL EXAMINATION: GENERAL: The patient is awake, alert, and appropriate at this time. She follows commands and is appropriately responsive in both Divehi and Hebrew. HEENT: Pupils were minimally reactive, but equal. Extraocular movements were intact. No nystagmus. No tongue fasciculations. NECK: No nuchal rigidity. Full ROM without pain. NEUROLOGIC: Alert and oriented to person, place, and day of the week. Patient is able to state that today is Sunday, but unable to state the month or year (daughters say this is baseline, given dementia). She correctly names a pen and states its use. Patient was unable to give definition of an island. The patient has generalized 4/5 weakness throughout all 4 extremities. However, she has good movement of all extremities and follows commands. No focal neurologic strength deficits. IMPRESSION/DIAGNOSES: 1. Multiple recent falls. 2. Ventriculomegaly, possibility of normal-pressure hydrocephalus versus delayed hydrocephalus secondary to subarachnoid hemorrhage. 3. On hemodialysis for end-stage renal disease. 4. On 81 mg aspirin, likely for end-stage renal disease. 5. Mild cognitive dementia. 6. Hypertension. PLAN: I have discussed the patient's case and imaging at length with Dr. Lozano. Plan will be to obtain MRI of the brain with and without contrast and MRI of the cervical spine with and without contrast tomorrow morning. If there is an issue with the patient obtaining contrast, then may obtain the cervical spine MRI without contrast only; however, the MRI of the brain must be completed with and without contrast. The patient may eat and does not need to remain n.p.o. It is highly unlikely that the patient will require neurosurgical intervention or placement of any EVD overnight. She will be admitted to the stroke unit and we have ordered q.2 hours neuro checks. We will hold her 81 mg aspirin at this time. I would like the head of bed elevated at 30 degrees and strict bedrest. Blood pressure parameters will be to keep the systolic blood pressure less than 150 and diastolic blood pressure less than 90. We will follow up with the patient in the morning after imaging has been completed or sooner for any neurologic changes. We have updated family with the plan at bedside. This is a 50-minute initial patient evaluation of which greater than 50% of the time was spent in counseling. The remaining time was spent in review of records, imaging, evaluation of the patient, examination, and formulation of plan. Job ID: [id number] [facility]
[2019-04-17 05:24] LABS: Anion Gap 12 mmol/L (10-20); BUN (Urea Nitrogen) 16 mg/dL (9.8-20.1); Calc. Creatinine Clearance 9 mL/min (70-130); Calcium 8.2 mg/dL (7.8-10.44); Carbon Dioxide 26 mmol/L (23-31); Chloride 101 mmol/L (98-107); Estimated GFR-MDRD 10; Glucose 107 mg/dL (83-110); Potassium 3.4 mmol/L (3.5-5.1); Sodium 136 mmol/L (136-145)
[2019-04-17] MEDS: hydrALAZINE 20 MG/ML VIAL SLOW IVP PRN ×2 (05:25→13:08)
[2019-04-17 05:26] LABS: #Basophils 0.1 thou/uL (0.0-0.2); #Eosinphils 0.4 thou/uL (0.0-0.7); #Lymphocytes 1.5 thou/uL (1.20-3.40); #Monocytes 0.4 thou/uL (0.11-0.59); %Basophils 1.1 % (0.0-1.0); %Lymphocytes 27.4 % (21.0-51.0); %Monocytes 7.8 % (0.0-10.0); %Neutrophils 55.7 % (42.0-75.0); Hemoglobin 9.3 g/dL (12.0-16.0); Mean Corpuscular Volume 97.1 fL (78.0-98.0); Mean Platelet Volume 7.8 fL (7.4-10.4); Platelet Count 113 thou/uL (130-400); RBC Distribution Width 12.4 % (11.5-14.5); Red Blood Cell (RBC) Count 2.73 mill/uL (4.20-5.40); White Blood Cell (WBC) Count 5.4 thou/uL (4.8-10.8)
[2019-04-17] MEDS: Labetalol HCl 100 MG/20 ML VIAL SLOW IVP PRN ×6 (07:53→18:51)
[2019-04-17] MEDS ORDERED: Carvedilol 25 MG TAB PO SCH ×2 (09:30→21:00)
[2019-04-17] MEDS ORDERED: Amlodipine 5 MG TAB PO SCH (09:30)
[2019-04-17] MEDS ORDERED: hydrALAZINE 25 MG TAB PO SCH ×2 (09:30→15:00)
[2019-04-17] MEDS ORDERED: Lisinopril 20 MG TAB PO SCH (09:30)
--- NOTE | 2019-04-17 09:34 | PRG ---
DATE OF SERVICE: 04/17/2019 This is Elia Mclaughlin PA-C dictating a report for Wilfredo Lozano MD. Ms. Mistry is hospital day #1, having sustained increased falls and some confusion on top of her mild cognitive dementia. At this point, the patient appears to be even more neurologically intact today than she was yesterday. She is smiling, and denies any type of pain. She follows commands in all extremities, though again is generally weak secondary to deconditioning. Again, she is much brighter in affect. She is oriented to place, but not to day, although she does believe it is Sunday She is at her neurologic baseline. Her pupils are equal and minimally reactive. We will follow up on the patient's MRI of the brain and cervical spine, but at this point, there is no role for acute neurosurgical intervention nor placement of EVD. The daughter is at bedside and has been updated. Main thing now is a blood pressure control as it has been very high and we have asked that her systolic blood pressure remain less than 150 and her diastolic less than 90. Appreciate hospitalist following the patient. Please call with any changes in patient's neurologic status. Otherwise, we will follow up on her studies. Job ID: [id number]
--- NOTE | 2019-04-17 11:58 | MRI ---
Exam: Brain MRI without contrast HISTORY: Hydrocephalus. Multiple falls. COMPARISON: None FINDINGS: Calvarial marrow signal intensity: Heterogeneous T1 marrow signal intensity of the calvarium. Gradient echo sequence: There is evidence of hemorrhage in the dependent portion of the occipital hor n of both lateral ventricles. There is also evidence of cortical-based hemosiderin deposition in the left parietal lobe. Brain parenchyma: No mass, mass effect or midline shift. Age-appropriate atrophy. Cortical hidalgo-white matter differentiation: Preserved Restricted diffusion: Central arterial flow voids are maintained. Absent restricted diffusion White matter signal intensities:Predominantly periventricular T2 and FLAIR white matter hyperintensit ies which may represent transependymal flow of CSF. Ventricular system: Persistent dilatation of ventricular system. Sinuses: Opacification the left mastoid air cells. Mild mucosal thickening the visualized paranasal s inuses. IMPRESSION: 1. Redemonstration of intraventricular hemorrhage. 2. Remote insult with hemosiderin deposition the left parietal lobe. 3. Ventriculomegaly with probable transependymal flow of CSF. 4. Absent restricted diffusion. No acute infarct. 5. Abnormal marrow signal intensity of the calvarium. Marrow signal intensity is similar to the previ ous examination. Correlate for anemia.
--- NOTE | 2019-04-17 12:02 | MRI ---
MR CERVICAL SPINE WITHOUT CONTRAST INDICATION: Fall with neck pain TECHNIQUE: Multiplanar multisequence MR images were obtained of the cervical spine without contrast. COMPARISON: None FINDINGS: Posterior fossa: Within normal limits. Bone marrow signal intensity: There is heterogeneous marrow signal intensity is seen throughout the c ervical and thoracic spine which may reflect sequela of red marrow hyperplasia. No acute fracture is demonstrated. Spinal alignment: Normal. Craniocervical junction: Normal appearing. Prevertebral and perivertebral soft tissues: Visualized soft tissues appear within normal limits. Vertebral levels: C2-C3: There is a small central disc protrusion. There is no appreciable central canal or neural fora facundo narrowing. C3-4: There is uncovertebral hypertrophy and facet joint degenerative change inducing severe right an d mild left neural foraminal narrowing. There is moderate central canal narrowing narrowing at this level causing mild ventral effacement of the spinal cord. C4-5: There is a broad-based disc bulge inducing moderate central canal narrowing with mild ventral effacement of the ventral spinal cord. There is uncovertebral hypertrophy and facet joint degenerative change greater on the right inducing severe right and mild left neural foraminal narrowi ng. C5-C6: There is a broad-based disc bulge with uncovertebral hypertrophy. There is moderate central ca nal narrowing with mild ventral effacement of the spinal cord. There is uncovertebral hypertrophy inducing moderate to severe right and mild left neural foraminal narrowing. C6-C7:, There is a broad-based bulge with facet hypertrophy but no appreciable neural foraminal narro wing. The broad-based bulge does mildly efface the ventral subarachnoid space without cord compression. C7-T1: No appreciable central canal or neuroforaminal narrowing. IMPRESSION: 1. Moderate to severe multilevel spondylosis of the cervical spine with multilevel central canal and neural foraminal narrowing as detailed above. 2. No acute fracture demonstrated. 3. Heterogeneous marrow signal intensity of the visualized cervical and thoracic spine may reflect ch anges of underlying red marrow hyperplasia. Recommend correlation.
[2019-04-17] MEDS: cloNIDine 0.1 MG TAB PO PRN (12:32)
[2019-04-17] MEDS: hydrALAZINE 25 MG TAB PO SCH ×2 (13:50→22:16)
[2019-04-17] MEDS: Carvedilol 25 MG TAB PO SCH (16:17)
[2019-04-17] MEDS: Cefepime 1 GM in Sodium Chloride 0.9% 100 ML IVPB SCH (16:22)
--- NOTE | 2019-04-17 16:26 | PDOC.HOSPP ---
- Subjective Encounter Date: 04/17/19 Encounter Time: 15:30 Subjective: Patient seen and examined for ICH. BP uncontrolled per RN. No new focal deficits. No new complaints. No overnight events - Objective Vital Signs & Weight: Vital Signs (12 hours) Temp Pulse Resp BP BP Pulse Ox 04/17/19 15:42 100.0 F H 70 14 181/78 H 99 04/17/19 13:50 70 170/73 H 04/17/19 13:10 70 188/66 H 04/17/19 13:08 191/78 H 04/17/19 12:32 191/78 H 04/17/19 12:03 77 189/71 H 04/17/19 11:39 98.6 F 04/17/19 09:45 77 191/81 H 04/17/19 09:44 77 191/80 H 04/17/19 08:36 77 184/81 H 04/17/19 08:20 77 192/77 H 04/17/19 07:53 77 191/87 H 04/17/19 07:38 98.6 F 77 16 191/87 H 98 04/17/19 05:25 74 185/76 H Weight Admit Weight 120 lb 1.6 oz Weight 120 lb 1.6 oz Result Diagrams: 04/17/19 04:30 04/17/19 04:30 Additional Labs: Accuchecks 04/17/19 04/17/19 12:17 05:54 POC Glucose 143 H 131 H Radiology Reviewed by me: Yes (MRI - ICH) EKG Reviewed by me: Yes (Tele SR) Hospitalist ROS - Review of Systems Cardiovascular: denies: chest pain, palpitations, orthopnea, paroxysmal noc. dyspnea, edema, light headedness, other Gastrointestinal: denies: nausea, vomiting, abdominal pain, diarrhea, constipation, melena, hematochezia, other - Medication Medications: Active Medications Generic Name Dose Route Start Last Admin Trade Name Freq PRN Reason Stop Dose Admin Carvedilol 25 mg 04/17/19 17:00 04/17/19 16:17 Coreg PO 25 mg BID-WM YUNG Administration Clonidine 0.1 mg 04/17/19 12:07 04/17/19 12:32 Catapres PO 0.1 mg Q4H PRN Administration SBP Greater Than 180 Hydralazine HCl 5 mg 04/16/19 21:34 12/12/19 13:08 Apresoline SLOW IVP 5 mg Q4H PRN Administration SBP GREATER THAN 160 Hydralazine HCl 100 mg 04/17/19 14:00 04/17/19 13:50 Apresoline PO 100 mg Q8HR YUNG Administration Cefepime HCl 1 gm/ Sodium 100 mls @ 200 mls/hr 04/17/19 16:00 04/17/19 16:22 Chloride IVPB 100 mls 1600 YUNG Administration Labetalol HCl 10 mg 04/17/19 08:00 04/17/19 12:03 Normodyne SLOW IVP 10 mg Q15M PRN Administration BP >150/90 Sodium Chloride 10 ml 04/17/19 09:00 04/17/19 07:55 Flush - Normal Saline IVF 10 ml Q12HR YUNG Administration - Exam General Appearance: NAD, awake alert Neck: no JVD Heart: RRR, no gallops, no rubs, normal peripheral pulses Respiratory: CTAB, no rales, no ronchi, normal chest expansion Gastrointestinal: soft, non-tender, non-distended, normal bowel sounds Extremities: no cyanosis, no clubbing, no edema Neurological: no new deficit Psychiatric: normal affect, normal behavior, oriented to person, oriented to place Hosp A/P - Plan plan discussed w/ family, DVT proph w/SCDs ICH Gen weakness/Recurrent falls (POA) Toxic Metabolic Encephalopathy (POA) UTI HTN emergency ESRD on HD Hypokalemia Dementia DM2 PLAN: 04/17 BP still uncontrolled on home meds Blanca fry T/F to CCU I d/w Nephrology/NSG AM labs Cont other meds
[2019-04-17] MEDS ORDERED: SYSTANE 3.5 GM TUBE EA EYE PRN (16:27)
[2019-04-17] MEDS ORDERED: Acetaminophen 325 MG/10.15 ML UDCUP PO PRN (16:27)
[2019-04-17] MEDS ORDERED: Acetaminophen 650 MG Suppository PR PRN (16:27)
[2019-04-17] MEDS ORDERED: cloNIDine 0.1 MG TAB PO SCH (17:15)
[2019-04-17] MEDS: Amlodipine 5 MG TAB PO SCH (20:36)
--- NOTE | 2019-04-17 22:18 | CON ---
DATE OF CONSULTATION: 04/17/2019 CONSULTING PHYSICIAN: Halle Saucedo MD REASON FOR CONSULTATION: End-stage renal disease evaluation. REASON FOR ADMISSION: Change in mental status. HISTORY OF PRESENT ILLNESS: This is an 83-year-old female with history of diabetes, hypertension, end-stage renal disease, came to the hospital with above complaints and was found to have intracranial bleed and is being treated. She was also hypertensive. She will be moving to [facility] later on today. She feels slightly better. No chest pain, or palpitation. No nausea or vomiting. PAST MEDICAL HISTORY: Positive for type 2 diabetes, hypertension, CVA, dementia, end-stage renal disease. PAST SURGICAL HISTORY: Dialysis access placement. HOME MEDICATIONS: Reviewed. ALLERGIES: LINAGLIPTIN AND ADHESIVE TAPE. SOCIAL HISTORY: No smoking, alcohol, or illicit drugs. FAMILY HISTORY: No history of kidney disease. REVIEW OF SYSTEMS: CONSTITUTIONAL: Negative for weight loss or gain, ability to conduct usual activities. SKIN: Negative for rash, itching. EYES: Negative for double vision, pain. ENT/MOUTH: Negative for nose bleeding, neck stiffness, pain, tenderness. CARDIOVASCULAR: Negative for palpitations, dyspnea on exertion, orthopnea. RESPIRATORY: Negative for shortness of breath, wheezing, cough, hemoptysis, fever or night sweats. GASTROINTESTINAL: Negative for poor appetite, abdominal pain, heartburn, nausea, vomiting, constipation, or diarrhea. GENITOURINARY: Negative for urgency, frequency, dysuria, nocturia. MUSCULOSKELETAL: Negative for pain, swelling. NEUROLOGIC/PSYCHIATRIC: Negative for anxiety, depression. ALLERGY/IMMUNOLOGIC: Negative for skin rash, bleeding tendency. PHYSICAL EXAMINATION: GENERAL: This is a well-built female, in no apparent distress. VITAL SIGNS: Temperature 98.6, pulse 70, respiratory rate 18, blood pressure 181/70. HEENT: Atraumatic, normocephalic. Oral mucosa moist. NECK: Supple. CV: S1 and S2. Rate and rhythm regular. RESPIRATORY: Clear. GI: Abdomen is soft. MUSCULOSKELETAL: 1+ edema. DERMATOLOGIC: No skin rash. NEUROLOGIC: Alert and awake. PSYCHIATRIC: Mood and affect normal. LABORATORY DATA: Hemoglobin is 9.3, potassium is 3.4, BUN is 16, creatinine is 4.2. ASSESSMENT AND PLAN: 1. End-stage renal disease. Plan to have dialysis as tolerated. We will have dialysis Sunday, Sunday, Sunday if cleared by Neurosurgery. 2. Intracranial bleed. Follow with Neurosurgery. We will have gentle dialysis as tolerated. 3. Edema, we will have gentle fluid removal as tolerated. 4. History of hypertension. Agree with titration of medication. 5. History of anemia. Plan is to continue dialysis as tolerated. Job ID: [id number]
--- NOTE | 2019-04-17 23:03 | CT ---
EXAM: CT Brain WO Con PROVIDED CLINICAL HISTORY: Intracranial hemorrhage COMPARISON: 04/16/2019 1:57 PM FINDINGS: Ventricular enlargement is redemonstrated, stable. Redemonstration of intraventricular hemorrhage wit hin the posterior horns of the lateral ventricles. Increased density within the regional vasculature presumably reflects intravenous contrast administration, the timing of which is uncertain . Periventricular white matter hypodensity is redemonstrated. There is no shift of the midline structures. Basilar cisterns appear patent. Persistent opacification of the left mastoid air cells an d middle ear. IMPRESSION: No significant interval change is apparent respect to the prior exam.
[2019-04-17 23:18] LABS: #Eosinphils 0.6 thou/uL (0.0-0.7); #Lymphocytes 1.5 thou/uL (1.20-3.40); #Monocytes 0.5 thou/uL (0.11-0.59); #Neutrophils 3.7 thou/uL (1.40-6.50); %Basophils 0.3 % (0.0-1.0); %Eosinophils 9.3 % (0.0-10.0); %Lymphocytes 24.1 % (21.0-51.0); %Monocytes 7.4 % (0.0-10.0); Hemoglobin 9.1 g/dL (12.0-16.0); Mean Corpuscular HGB CONC 34.8 g/dL (32.0-36.0); Mean Corpuscular Hemoglobin 33.8 pg (27.0-31.0); Mean Corpuscular Volume 97.1 fL (78.0-98.0); Mean Platelet Volume 7.8 fL (7.4-10.4); Platelet Count 123 thou/uL (130-400); RBC Distribution Width 12.6 % (11.5-14.5); Red Blood Cell (RBC) Count 2.68 mill/uL (4.20-5.40); White Blood Cell (WBC) Count 6.2 thou/uL (4.8-10.8)
[2019-04-17 23:43] LABS: Anion Gap 14 mmol/L (10-20); BUN (Urea Nitrogen) 25 mg/dL (9.8-20.1); Calc. Creatinine Clearance 6 mL/min (70-130); Calcium 8.1 mg/dL (7.8-10.44); Carbon Dioxide 24 mmol/L (23-31); Chloride 101 mmol/L (98-107); Estimated GFR-MDRD 7; Glucose 144 mg/dL (83-110); Potassium 3.6 mmol/L (3.5-5.1); Sodium 135 mmol/L (136-145)
[2019-04-18] MEDS ORDERED: Ondansetron PF 4 MG/2 ML Vial SLOW IVP PRN (00:36)
[2019-04-18] MEDS: niCARdipine 50 MG in Sodium Chloride 0.9% 250 ML 230 ML IVPB SCH ×3 (01:02→19:29)
[2019-04-18 04:06] LABS: #Basophils 0.1 thou/uL (0.0-0.2); #Eosinphils 0.5 thou/uL (0.0-0.7); #Lymphocytes 1.4 thou/uL (1.20-3.40); #Monocytes 0.5 thou/uL (0.11-0.59); #Neutrophils 3.7 thou/uL (1.40-6.50); %Basophils 0.9 % (0.0-1.0); %Eosinophils 8.2 % (0.0-10.0); %Lymphocytes 22.4 % (21.0-51.0); %Monocytes 7.9 % (0.0-10.0); %Neutrophils 60.6 % (42.0-75.0); Mean Corpuscular HGB CONC 34.4 g/dL (32.0-36.0); Mean Corpuscular Hemoglobin 33.5 pg (27.0-31.0); Mean Corpuscular Volume 97.3 fL (78.0-98.0); Platelet Count 130 thou/uL (130-400); RBC Distribution Width 12.9 % (11.5-14.5); Red Blood Cell (RBC) Count 2.69 mill/uL (4.20-5.40); White Blood Cell (WBC) Count 6.1 thou/uL (4.8-10.8)
[2019-04-18 04:52] LABS: Anion Gap 14 mmol/L (10-20); BUN (Urea Nitrogen) 26 mg/dL (9.8-20.1); Calc. Creatinine Clearance 6 mL/min (70-130); Calcium 8.1 mg/dL (7.8-10.44); Carbon Dioxide 23 mmol/L (23-31); Chloride 101 mmol/L (98-107); Estimated GFR-MDRD 6; Glucose 131 mg/dL (83-110); Potassium 3.7 mmol/L (3.5-5.1); Sodium 134 mmol/L (136-145)
[2019-04-18] MEDS: hydrALAZINE 25 MG TAB PO SCH ×3 (05:59→19:29)
[2019-04-18] MEDS: Carvedilol 25 MG TAB PO SCH ×2 (08:29→16:16)
--- NOTE | 2019-04-18 09:00 | RAD ---
Exam: Chest one view HISTORY:COPD Comparison: 12/05/2017 FINDINGS: Cardiac silhouette:Body megaly. Incidental loop recorder. Aorta: Unremarkable Pulmonary vessels: Normal Costophrenic angles: Clear LUNGS: No masses or consolidation. Chronic changes are noted Pneumothorax: None Osseous abnormalities: Remote right humerus fracture. IMPRESSION: No acute cardiopulmonary process.
--- NOTE | 2019-04-18 09:31 | MRI ---
Exam: Brain MRI without contrast HISTORY: Left arm weakness. Aphasia. COMPARISON: 04/17/2019 FINDINGS: Calvarial marrow signal intensity: Stable heterogeneous T1 marrow signal intensity Gradient echo sequence: Stable intracranial hemorrhage. Brain parenchyma: No mass, mass effect or midline shift. Stable brain volume.. Cortical hidalgo-white matter differentiation: Preserved Restricted diffusion: Central arterial flow voids are maintained. Absent restricted diffusion White matter signal intensities:Stable white matter hyperintensities on the axial T2 and FLAIR sequen ce Sinuses: Adequate aeration of the paranasal sinuses and mastoid air cells. Ventricular system: Stable dilatation of ventricular system. IMPRESSION: No significant interval change.
--- NOTE | 2019-04-18 09:39 | CON ---
DATE OF CONSULTATION: HISTORY OF PRESENT ILLNESS: This is an 83-year-old [place] female. She is in the ICU following multiple falls, hydrocephalus from a previous intraparenchymal hemorrhage. She is in the ICU, reason for consult. Recent MRI and CT head showed intraventricular hemorrhage and dilatation of the intraventricles. There was no shift in the midline. According to the family members who are present in the ICU, she was much more appropriate yesterday. Today after she was given medicine for elevated blood pressure, she had become less responsive. Though when I see her in the ICU, she is clearly in no distress. Blood pressure is 130/80. She is on Cardene at 2.5 mg/hour. Noncommunicative. Appears to be in no distress. She was recently discharged from the hospital with a diagnosis of end-stage renal disease, on hemodialysis, hypertension, and CVA. She has been falling at home multiple times as outlined, came with an elevated blood pressure. ER MRI showed evidence of stable findings with a hemorrhage in dilatation of the ventricles. 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 SOCIAL HISTORY: Smoker in the past. Quit many years ago. Alcohol, none. HOME MEDICINE: 1. Amlodipine 5 twice a day. 2. Hydralazine 100 three times a day. 3. Glipizide 2.5. 4. Omeprazole 10 twice a day. 5. Lisinopril 40. 6. Coreg 25 b.i.d. 7. Aspirin. ALLERGIES: APPARENTLY TRADJENTA. PHYSICAL EXAMINATION: GENERAL: She is in no distress. Noncommunicative. VITAL SIGNS: Blood pressure 138/51, pulse 86, respiratory rate 18, afebrile, oxygen saturation 96%. CHEST: No wheezing, crackles. CARDIAC: Normal S1, S2, no gallops. ABDOMEN: No mass. LABORATORY DATA: Creatinine is 6.2, BUN is 26. White count 6000, H and H 9 and 26, platelet count 130. CBC shows 6000 white count. IMPRESSION: Status post cerebrovascular accident with tPA, ensuing hemorrhage, chronic renal failure, encephalopathy, dementia, frequent falls. Pulmonary/Critical Care will follow while in the ICU. I agree with present management of her blood pressure. We may consider adding Catapres. Continue supportive care, PT. We will follow while in the ICU. This is a consultation note, 70 minutes, 50% direct patient care. Job ID: [id number] MTDD
--- NOTE | 2019-04-18 10:06 | PRG ---
DATE OF SERVICE: 04/18/2019 SUBJECTIVE: The patient was seen at the bedside. She has a change in mental status, and multiple family members are at the bedside. The patient is not responding very well. OBJECTIVE: GENERAL: This is an elderly female, nonverbal. VITAL SIGNS: Temperature 98.5, pulse 65, respiratory rate 18, blood pressure 128/53. HEENT: Atraumatic and normocephalic. NECK: Supple. CARDIOVASCULAR: S1 and S2 heard. RESPIRATORY: Clear. GASTROINTESTINAL: Abdomen is soft. MUSCULOSKELETAL: 1+ edema DERMATOLOGIC: No skin rash. NEUROLOGIC: Confused. LABORATORY DATA: Potassium is 3.7, BUN is 26, creatinine is 6.25. ASSESSMENT AND PLAN: 1. End-stage renal disease. The patient is having a change in mental status and awaiting Neurology opinion. 2. Intracranial bleed. Follow with Neurosurgery. 3. Edema. 4. History of hypertension, on Cardene drip. 5. History of anemia. Prognosis is guarded, not safe to have dialysis at this point. We will await for Neurology evaluation and opinion. Job ID: [id number]
[2019-04-18] MEDS: Amlodipine 5 MG TAB PO SCH ×2 (11:35→19:28)
[2019-04-18] MEDS: Lisinopril 20 MG TAB PO SCH ×2 (11:35→19:28)
[2019-04-18] MEDS: Polyethylene Glycol 3350 17 GM Packet PO SCH (11:35)
[2019-04-18] MEDS: Famotidine 20 MG TAB PO SCH (11:35)
--- NOTE | 2019-04-18 13:53 | PRG ---
DATE OF SERVICE: 04/18/2019 This is a 50-minute initial hospital visit note, in which 50 minutes were spent reviewing the imaging record, evaluation, examination of the patient, formulation of plan. Greater than 50% time was spent in counseling on Pia Mistry. I reviewed the notes of my colleague, SALOMÓN Gresham, and I agreed with his content. Ms. Mistry is an 83-year-old woman, who has had a progressive decline over the last year with increased cognitive difficulties. CT scan compared to a prior CT scan years ago demonstrates increased ventricular caliber, but more profoundly neuronal loss consistent with cortical atrophy. I think there are ex-vacuo changes, there are also white matter changes, and I should note that she was brought in for these symptoms. Head CT demonstrated layering of blood in the occipital horns and this is unclear if this was blood or pus. MRI was negative for stroke and demonstrated evidence of blood in the occipital horns. Spinal tap demonstrated elevated neutrophils, but normal opening pressure. She is admitted to the stroke floor for further evaluation. CTA of the neck and brain were unremarkable. She was transferred to the unit yesterday for recalcitrant hypertension. I should note she has renal failure and is on dialysis. This morning, her creatinine is 6.2. Her blood pressure is better controlled at 130/70 with nicardipine drip. Neurologically, overnight, she has declined to the point of minimally responsive, but still saturating well. She has automatisms such as yawning and sneezes consistent with floor delirium. She has an active urinary tract infection. She does not respond to me this morning and I suspect strongly with 2 head CTs, this is not related to hydrocephalus, but rather related to floor delirium. Delirium coupled with advanced dementia. She has an active urinary tract infection. I am also concerned about infection in the mastoid air cells on the left side consistent with mastoid sinusitis. She is being treated with cefepime, but has a left facial droop that does appear to be a lower motor neuron pattern. As such, I suspect this is irritation of her facial nerve. I am not in favor of Decadron for facial nerve palsy, given her diabetes. I think it will simply take time to recover from this. One thing that I am concerned about surgically is she has multilevel subaxial cervical spinal cord compression from C2-C7. This is likely something that would need surgical decompression such as C2-C7 laminectomy, partial facetectomy, and foraminotomies. However, this is not to be done during this hospital stay. I would recommend antibiotics cleared of infection and reoriented with family, her lucidity should improve and her infection cleared. We will then plan to follow up in my clinic in a couple of weeks to review the cervical spine MRI and discuss possible need for surgical decompression of her cord. I think this is the reason she continues to fall and has had progressive myelopathy. I recommend consultation of Dr. Garcia to make sure there is coverage of her urinary tract infection and of her mastoiditis. I suspect the facial nerve palsy will improve as the mastoiditis improves. DIAGNOSES: 1. Cervical myelopathy with increased falls. 2. Remote hemorrhage of the brain related to head injury and trauma. 3. Cortical atrophy. 4. Ventriculomegaly. 5. Urinary tract infection. 6. 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 7. Renal failure. Job ID: [id number]
[2019-04-18] MEDS: Cefepime 1 GM in Sodium Chloride 0.9% 100 ML IVPB SCH (15:58)
--- NOTE | 2019-04-18 23:31 | CON ---
DATE OF CONSULTATION: 04/18/2019 REASON FOR CONSULTATION: Abnormal mental state with left ear symptoms and abnormalities on imaging study and CSF findings. HISTORY OF PRESENT ILLNESS: An 83-year-old patient who has a history of type 2 diabetes, chronic hepatitis C, hypertension and end-stage renal disease, on hemodialysis through an AV fistula in the right upper extremity. Also it is listed dementia here in the medical history, who had episodes of fall recently. One of them as described by the one of the daughters as patient having screamed and she basically fell backwards without losing her consciousness. It is more like as if she had lost her balance. The daughter went there and helped her get up again. It is not stated, if she had any headaches at the time. Reportedly was having some pain in the left ear with some drainage for the past few weeks. She was not given any treatment specifically. She continued going to dialysis and had some issues with her blood pressure and had presented to the emergency room and was sent to Urgent Care. She apparently takes multiple different medications for her hypertension. Then, she had another fall with slurred speech and weak left side. She was brought in, initially her BP was 150/91, pulse 76, respirations 16, O2 saturation 97, temperature was normal and then 2nd measurement was 99.6. She is described as appearing nontoxic, pain-free and alert and oriented. She had an abnormal [id number] exam and rapid alternating hand movements. INITIAL LABORATORY DATA: White cell count 4.3, hemoglobin 10.4, platelets 107, 76% neutrophils, creatinine 2.81, potassium 3.3. Liver profile normal except for alkaline phosphatase 124. Urinalysis with greater than 50 wbc's. She had a CSF evaluation, which showed 32,978 RBCs with 46 nucleated cells. The ratio was 700. The glucose was 65 and protein 95. The patient was admitted to the ICU. CT of the brain showed intraventricular hemorrhage, the posterior horns of the lateral ventricles. The brain MRI was done. The first one demonstrated intraventricular hemorrhage and hemosiderin deposition, left parietal lobe, ventriculomegaly and probable transependymal flow of CSF. No acute infarct. There was evidence of opacification of the left mastoid air cells, mild mucosal thickening of the paranasal sinuses. The 2nd MRI was done today and it showed no significant interval change. Currently, Ms. Mistry is not responsive. She seems to have some mental capacity, although she is not aware and off the surroundings. It is almost as if she was in the REM like state of sleep. She has not had any vomiting or seizure activity. No diarrhea. The patient is voiding spontaneously. SKIN: With a big old blister in her left hand, probably from trauma and some bruising associated with it as well. She has a peripheral IV access and there is no lymphadenopathy. The patient has clear sclerae with about 1 mm pupils, reactive. The eye movements appear to be conjugate. No nystagmus. She does not establish eye contact. The oral cavity without any nome teeth. The right ear with a lot of wax in the canal. I could not see well the tympanic membrane. The left one has less wax and there is a little bit of what appears to be a yellowish fluid in the external ear canal. The tympanic membrane appears to be intact and without erythema. NECK: Little bit stiff. No jugular vein distention. LUNGS: Symmetric, clear breath sounds, S1-S2. No murmurs, no S3 or S4. ABDOMEN: Soft, notdistended or tender. No ascites. No bladder distention. EXTREMITIES: No joint inflammatory activity. No edema. Pulses 1+ in dorsalis pedis. I could not get her to move spontaneously in any of her appendicular structures. She does have muscle tone in both right and left side. There is a little bit of nonsustained clonus on the left foot. Her plantar responses are indifferent. She does not establish eye contact, does not interact with the examiner. LABORATORY DATA: Followup labs white cell count is at 6.1, hemoglobin 9.,0 platelets 130, normal differential. Sodium 136, creatinine is at 4.22. Microbiology, there is a urine culture with mixed noah. The CSF sample submitted for culture is no organisms seen, no growth at 48 hours. ASSESSMENT: 1. Type 2 diabetes, end-stage renal disease with hemodialysis through an arteriovenous fistula. 2. Recurrent falls recently, which probably were precipitated by imbalance or dizziness and report of left ear symptoms with some drainage and the abnormalities detected on the imaging study of the brain as well as the cerebrospinal fluid evaluation. DISCUSSION: Findings including subarachnoidal hemorrhage with intraventricular hemorrhage. The ratio of RBCs to WBCs is consistent with a pure subarachnoidal process with hemorrhage, but not meningitis. The ear findings are probably serendipitous and not related to the patient's presentation other than the chronic ear problems. She may have some chronic otitis and she merits treatment for that. I do not believe she has evidence to suggest acute bacterial meningitis. Job ID: [id number] MTDD
--- NOTE | 2019-04-18 23:38 | PDOC.HOSPP ---
- Subjective Encounter Date: 04/18/19 Encounter Time: 10:00 Subjective: Patient seen and examined for ICH. Lethargic. On Cardene drip. No overnight events - Objective Vital Signs & Weight: Vital Signs (12 hours) Temp Pulse Ox 04/18/19 20:00 97 04/18/19 19:00 98.7 F 04/18/19 18:45 93 L 04/18/19 16:00 98.7 F 04/18/19 12:00 98.6 F Weight Admit Weight 120 lb 1.6 oz Weight 122 lb 5.705 oz Most Recent Monitor Data Heart Rate from ECG 64 NIBP 135/61 NIBP BP-Mean 85 Respiration from ECG 10 SpO2 97 I&O: 04/17/19 04/18/19 04/19/19 06:59 06:59 06:59 Intake Total 1074 385 Balance 1074 385 Result Diagrams: 04/18/19 03:52 04/18/19 03:52 EKG Reviewed by me: Yes (Tele SR) Hospitalist ROS - Review of Systems ROS unobtainable: due to mental status - Medication Medications: Active Medications Generic Name Dose Route Start Last Admin Trade Name Freq PRN Reason Stop Dose Admin Amlodipine Besylate 5 mg 04/17/19 21:00 04/18/19 19:28 Norvasc PO Not Given BID YUNG Carvedilol 25 mg 04/17/19 17:00 04/18/19 16:16 Coreg PO Not Given BID-WM YUNG Clonidine 0.1 mg 04/17/19 12:07 04/17/19 12:32 Catapres PO 0.1 mg Q4H PRN Administration SBP Greater Than 180 Famotidine 20 mg 04/18/19 09:00 04/18/19 11:35 Pepcid PO Not Given DAILY YUNG Hydralazine HCl 5 mg 04/16/19 21:34 04/17/19 13:08 Apresoline SLOW IVP 5 mg Q4H PRN Administration SBP GREATER THAN 160 Hydralazine HCl 100 mg 04/17/19 14:00 04/18/19 19:29 Apresoline PO Not Given Q8HR YUNG Cefepime HCl 1 gm/ Sodium 100 mls @ 200 mls/hr 04/17/19 16:00 04/18/19 15:58 Chloride IVPB 100 mls 1600 YUNG Administration Nicardipine HCl 50 mg/ Sodium 250 mls @ 0 mls/hr 04/17/19 15:00 04/18/19 19: 29 Chloride IVPB 250 mls INF YUNG Administration Protocol Titrate Labetalol HCl 10 mg 04/17/19 08:00 04/17/19 18:51 Normodyne SLOW IVP 10 mg Q15M PRN Administration BP >150/90 Lisinopril 40 mg 04/18/19 09:00 04/18/19 19:28 Zestril PO Not Given BID YUNG Polyethylene Glycol 17 gm 04/18/19 09:00 04/18/19 11:35 Miralax PO Not Given QAM YUNG Sodium Chloride 10 ml 04/17/19 09:00 04/18/19 19:29 Flush - Normal Saline IVF 10 ml Q12HR YUNG Administration - Exam General Appearance: NAD Heart: RRR, no gallops Respiratory: no wheezes, no rales Gastrointestinal: soft, normal bowel sounds Extremities: no edema Neurological - other findings: cannot assess due to current status Hosp A/P - Plan DVT proph w/SCDs ICH Gen weakness/Recurrent falls (POA) Toxic Metabolic Encephalopathy (POA) UTI HTN emergency ESRD on HD Hypokalemia Dementia DM2 PLAN: 04/18 Cont Cardene drip Await MRI brain Neurosurgery following Start D5NS Glucose check 04/17 BP still uncontrolled on home meds Cardene drip T/F to CCU I d/w Nephrology/NSG AM labs Cont other meds
[2019-04-19] MEDS: niCARdipine 50 MG in Sodium Chloride 0.9% 250 ML 230 ML IVPB SCH (01:00)
[2019-04-19] MEDS ORDERED: Dextrose 5 % And 0.9 % NaCl 1,000 ML IV SCH (01:00)
[2019-04-19] MEDS: hydrALAZINE 25 MG TAB PO SCH ×3 (04:17→21:04)
[2019-04-19 05:37] LABS: #Eosinphils 0.7 thou/uL (0.0-0.7); #Lymphocytes 1.6 thou/uL (1.20-3.40); #Monocytes 0.5 thou/uL (0.11-0.59); #Neutrophils 5.7 thou/uL (1.40-6.50); %Basophils 0.3 % (0.0-1.0); %Eosinophils 7.7 % (0.0-10.0); %Lymphocytes 18.8 % (21.0-51.0); %Monocytes 5.5 % (0.0-10.0); %Neutrophils 67.6 % (42.0-75.0); Hemoglobin 9.6 g/dL (12.0-16.0); Mean Corpuscular HGB CONC 34.7 g/dL (32.0-36.0); Mean Corpuscular Hemoglobin 33.5 pg (27.0-31.0); Mean Corpuscular Volume 96.5 fL (78.0-98.0); Mean Platelet Volume 7.5 fL (7.4-10.4); Platelet Count 154 thou/uL (130-400); Red Blood Cell (RBC) Count 2.87 mill/uL (4.20-5.40); White Blood Cell (WBC) Count 8.5 thou/uL (4.8-10.8)
[2019-04-19] MEDS ORDERED: Lorazepam 2 MG/ML VIAL SLOW IVP PRN (05:58)
[2019-04-19 06:00] LABS: Anion Gap 17 mmol/L (10-20); BUN (Urea Nitrogen) 34 mg/dL (9.8-20.1); Calc. Creatinine Clearance 5 mL/min (70-130); Carbon Dioxide 20 mmol/L (23-31); Chloride 103 mmol/L (98-107); Estimated GFR-MDRD 5; Glucose 145 mg/dL (83-110); Potassium 4.1 mmol/L (3.5-5.1); Sodium 136 mmol/L (136-145)
[2019-04-19] MEDS ORDERED: SODIUM CHLORIDE 0.9% IVPB SCH (06:30)
[2019-04-19] MEDS ORDERED: FOSPHENYTOIN SODIUM IVPB SCH (06:30)
[2019-04-19] MEDS ORDERED: Atropine Sulfate 1 mg/10 ml Syringe ONE (07:59)
[2019-04-19] MEDS ORDERED: Rocuronium Bromide 50 MG/5 ML VIAL IVP SCH (08:15)
[2019-04-19 08:59] LABS: Actual Bicarbonate (HCO3a) 20.4 mEq/L (22-28); Base Excess (BEa) -3.8 mEq/L (-2.0 to +3.0); CO2 Tension 33.9 mmHg (35.0-45.0); Calcium, Ionized 1.02 mmol/L (1.12-1.30); Carboxyhemoglobin (COHb) 1.3 gm% (0.0-3.0); Hemoglobin (Hb) 10.1 g/dL (12.0-16.0); O2 Tension (PaO2) 74.2 mmHg (> 60.0); Potassium - ABG Lab 3.71 mmol/L (3.70-5.30); Puncture Site LBA
[2019-04-19 09:00] LABS: ALV-art Gradient 33.155 (0-20)
[2019-04-19] MEDS: Lisinopril 20 MG TAB PO SCH ×2 (09:15→19:33)
[2019-04-19] MEDS: Famotidine 20 MG TAB PO SCH (09:15)
[2019-04-19] MEDS: Amlodipine 5 MG TAB PO SCH ×2 (09:15→19:32)
[2019-04-19] MEDS: Carvedilol 25 MG TAB PO SCH ×2 (09:15→15:27)
[2019-04-19] MEDS: Polyethylene Glycol 3350 17 GM Packet PO SCH (09:16)
--- NOTE | 2019-04-19 09:49 | PRG ---
DATE OF SERVICE: 04/19/2019 SUBJECTIVE: The patient was seen and examined at the bedside. I was called this morning by the nurse to see the patient. She became bradycardic. This happened after she received her first dose of phenytoin for possible seizures. This was a new order from Neurosurgery. Apparently, she had some episode of possible seizures overnight, and they made decision about using phenytoin. The patient's respirations were significantly down to the level that there was not enough air entry into her lungs, and we made decision about intubation, emergency room doctor intubated her, and her bradycardia was treated with atropine and a dopamine and IV fluids. She improved, but she went back to her bradycardia, and she was started on dopamine drip 5 mcg per kg per hour. The case was discussed with Dr. Dao and with Dr. Lozano, grader green meat, and neurosurgeon sales assistants and salespersons. The family was updated about her current condition. Her code status was confirmed with the family. She is full code. OBJECTIVE: VITAL SIGNS: Her blood pressure at this point is 115/47, pulse is in the 50s, and respiratory rate is 12. She is intubated on a ventilator. LUNGS: Clear. HEART: S1 and S2 are normal. Just bradycardic. No S3. No S4. ABDOMEN: Soft. Bowel sounds sluggish present. EXTREMITIES: No clubbing, cyanosis, or edema. NEUROLOGIC: She is not very responsive to me, but at this point, she is sedated. LABORATORY DATA: White count of 8.5, hemoglobin 9.6, hematocrit 27.6, and platelet count is 154,000. ABGs; pH of 7.4, pCO2 of 33.9, PO2 of 74.2, base excess -3.8. Sodium of 136, potassium 4.1, chloride 103, CO2 of 20, BUN 34, creatinine 8.05, glucose is ranging from 122 to 147, and calcium is 8.0. Microbiology; urine culture preliminary is possible mixed culture and isolation is in progress and CSF no growth in 3 days. IMPRESSION: 1. Intracranial hemorrhage. 2. Possible urinary tract infection. We are waiting for the cultures. 3. Hypertension, emergency. 4. End-stage renal disease, on hemodialysis. 5. Bradycardia. DISCUSSION: The patient got intubated this morning. She was started on a dopamine drip at 5 mcg per kg per hour. The case was discussed with Dr. Lozano who wants to switch her to Keppra from phenytoin, so phenytoin will be stopped, and Keppra will be started. She will have EEG and also she will be seen by Dr. Dao for Cardiology consultation. At this point, we are trying to find etiology of her seizures. Nothing is obvious. She did not have any stroke, and her intracranial pressure is most likely normal since her opening pressure and spinal tap was normal, but Neurosurgery will put at the bedside and EVD and will be able to sample her CSF again and measure the pressure. The patient was seen by Dr. Garcia who does not think that she has acute meningitis, but we will continue her current antibiotic with broad-spectrum with cefepime, and nicardipine was stopped during the episode of bradycardia. We will try to control her blood pressure since she had intracranial bleed. Job ID: [id number]
--- NOTE | 2019-04-19 10:05 | PRG ---
DATE OF SERVICE: 04/19/2019 SUBJECTIVE: Pia Mistry became acutely bradycardic, agonal respirations, was intubated by the ER physician, is now on the vent. OBJECTIVE: VITAL SIGNS: Without any sedation, pulse 75, blood pressure 130/80, saturations 100%, respirations 16. CHEST: Reveal decreased breath sounds. No wheezing. CARDIAC: Normal S1, S2. No gallops. ABDOMEN: Soft. LABORATORY DATA: White count 8000, H and H 8 and 26, and platelet count is 154. PO2 74, pCO2 33, pH 7.40, 12, 21%. Creatinine 8.0. ASSESSMENT AND PLAN: 1. 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 2. Renal failure, on dialysis. 3. Advanced age. 4. Severe deconditioning. She has been started on antibiotics for her UTI . Pulmonary/Critical Care has nothing to offer. Continue vent support, nutrition, PT. Disposition as per Neurosurgery. Family wants everything be done for the time being. We will follow while in the ICU. One-half hour of critical time. Job ID: [id number]
[2019-04-19] MEDS: DOPamine 400 MG/D5W 250 ML 250 ML IVPB SCH (10:11)
[2019-04-19] MEDS ORDERED: Lidocaine 1% w/Epinephrine 1:100K 20 ML VIAL ONE (10:47)
[2019-04-19] MEDS ORDERED: Propofol 1,000 MG/100 ML VIAL IV ONE (10:51)
[2019-04-19] MEDS ORDERED: CEFAZOLIN 2 GM in Premix Bag 1 BAG IVPB SCH ×3 (11:00→19:00)
[2019-04-19] MEDS ORDERED: Propofol BOLUS 1,000 MG/100 ML VIAL IV PRN (11:11)
[2019-04-19] MEDS ORDERED: Propofol 1,000 MG/100 ML VIAL IV PRN (11:11)
--- NOTE | 2019-04-19 11:58 | PRG ---
DATE OF SERVICE: 04/19/2019 SUBJECTIVE: This is an elderly female, seen in ICU bradycardia a few episodes and multiple family members at the bedside. OBJECTIVE: GENERAL: This is an elderly female, intubated, seen in ICU. VITAL SIGNS: Temperature 98.9, pulse 71, respiratory rate 19, blood pressure 122/61. HEENT: Intubated. CV: S1, S2 heard. RESPIRATORY: Clear. GI: Abdomen is soft MUSCULOSKELETAL: 1+ edema. NEUROLOGIC: Intubated. LABORATORY DATA: Potassium 4.1, BUN is 34, creatinine is 8.05. ASSESSMENT AND PLAN: 1. End-stage renal disease. No acute indication for dialysis. I feel like she is high risk for dialysis and also attempt to have dialysis. The plan is to hold dialysis. I had a discussion with Neurosurgery and family. Plan is to hold dialysis for today and continue close monitoring and repeat labs in the morning. 2. Renal bleed, follow with Neurosurgery. 3. Edema, controlled. 4. History of hypertension. 5. History of anemia. 6. Prognosis is guarded. No acute indication for dialysis. We will continue dialysis if indicated. We will follow. Job ID: [id number]
[2019-04-19 13:45] LABS: CSF Source CSF; Clarity Hazy (Clear); RBC Count - Manual 1145 /cumm (None Seen); WBC/NonHematics Count - Manual 1 /cumm (0-5)
[2019-04-19 13:52] LABS: Color Of CSF Supernatant COLORLESS (Colorless); Tube # 2; Unspun CSF Color COLORLESS (Colorless)
[2019-04-19] MEDS ORDERED: Vancomycin HCl 1 GM in Premix Bag 1 BAG IVPB SCH (14:00)
[2019-04-19] MEDS: HumaLOG 300 UNITS/3 ML VIAL SC PRN ×2 (14:01→16:20)
--- NOTE | 2019-04-19 14:06 | ULT ---
Bilateral lower extremity venous Doppler ultrasound: 04/19/2019 COMPARISON: None HISTORY: Immobilized patient with intracranial hemorrhage, assess for DVT TECHNIQUE: Multiplanar grayscale sonographic imaging of the venous structures of bilateral lower extr emities obtained with color flow and spectral analysis FINDINGS: Bilateral common femoral veins, greater saphenous veins, profunda femoral veins, femoral ve ins, popliteal veins, and posterior tibial veins are patent. There is normal blood flow, augmentation, and compression within the deep venous system bilaterally. No evidence for DVT on eithe r side IMPRESSION: No evidence for deep venous thrombosis of either lower extremity.
[2019-04-19 14:14] LABS: CSF, Glucose 116 mg/dl (40-70); CSF, Protein 33 mg/dL (15-40)
--- NOTE | 2019-04-19 14:23 | PRG ---
DATE OF SERVICE: 04/19/2019 SUBJECTIVE: Ms. Mistry had episode of bradycardia, and she was intubated and had an external ventricular drain placed, and she is off sedation, but not responsive. OBJECTIVE: VITAL SIGNS: Showed a T-max of 98.6, blood pressure 140/56, pulse 68, respirations 15 to 20, and O2 saturation 100%. HEENT: The pupils are kind of midline and sluggishly reactive. No eye movements are noted. Orotracheal intubation. Is on ventricular catheter. LUNGS: Symmetric. Clear breath sounds. HEART: S1 and S2, regular rate. No S3 or S4. ABDOMEN: Soft. Not distended or tender. No ascites. No bladder distention. I cannot elicit any movements in appendicular structures. LABORATORY DATA: White cell count 8.5, hemoglobin 9.6, platelets 154, and 67% neutrophils. Repeat CSF with 1145 WBCs, which were improved from prior counts. Brain MRI has been read before. Urine and CSF cultures negative 3 days. ASSESSMENT: Type 2 diabetes, recurrent falls with dizziness, some left ear drainage and some pain in the past few weeks and then evidence of intraventricular bleed with subarachnoid hemorrhage and has development of altered mental status. DISCUSSION: The patient has now required placement of EV drain and those patients with hemorrhagic CVAs have developed altered mental status, have much worse prognosis, much lengthier hospital stay, and again the left ear findings are probably unrelated to the current process. Job ID: [id number] MTDD
--- NOTE | 2019-04-19 14:48 | CON ---
DATE OF CONSULTATION: CRITICAL CARE NOTE TIME: 30 minutes. HISTORY OF PRESENT ILLNESS: The patient is an 83-year-old woman with a history of a cerebrovascular accident, who presented with an intracerebral hemorrhage and developed bradycardia. The patient was admitted with intracerebral hemorrhage. The patient this morning developed extremely low heart rate and a junctional escape rhythm. The patient is intubated and sedated and unable to give a history. PAST MEDICAL HISTORY: 1. Cerebrovascular accident. 2. End-stage renal disease. 3. Hypertension. SOCIAL HISTORY: Former smoker. MEDICATIONS: See nursing list. ALLERGIES: TRADJENTA. PHYSICAL EXAMINATION: GENERAL: This is an intubated woman, who is sedated. VITAL SIGNS: Blood pressure of 140/56. NECK: No jugular venous distention. LUNGS: Clear to auscultation. HEART: Regular rate and rhythm. Normal S1 and S2 with a 1/6 systolic murmur. ABDOMEN: Nondistended. LABORATORY RESULTS: White blood cell count 8.5, hemoglobin 9.6, hematocrit 27.6 , and platelets are 154. Sodium was 136, potassium 4.1, chloride 103, bicarbonate 20, BUN 34, and creatinine 8.0. IMAGING DATA: EKG ; junctional escape rhythm with a rate of 38. IMPRESSION: 1. Intracerebral hemorrhage. 2. Marked junctional bradycardia. 3. End-stage renal disease. 4. Hypertension. 5. History of cerebrovascular accident. This patient developed a marked junctional bradycardia. She was started on dopamine. The patient did receive IV Dilantin, which may have lowered her heart rate. We will continue the patient on dopamine. We will follow this patient with you through her hospitalization. Job ID: [id number] MTDD
[2019-04-19] MEDS: Cefepime 1 GM in Sodium Chloride 0.9% 100 ML IVPB SCH (15:25)
[2019-04-19] MEDS: hydrALAZINE 20 MG/ML VIAL SLOW IVP PRN ×2 (18:07→22:32)
[2019-04-19] MEDS: Sodium Chloride 0.9% 1,000 ML IV SCH (18:31)
[2019-04-20] MEDS ORDERED: CEFAZOLIN 2 GM in Premix Bag 1 BAG IVPB SCH (01:00)
[2019-04-20] MEDS: niCARdipine 50 MG in Sodium Chloride 0.9% 250 ML 230 ML IVPB SCH ×3 (02:58→21:17)
[2019-04-20] MEDS: DOPamine 400 MG/D5W 250 ML 250 ML IVPB SCH (02:58)
[2019-04-20] MEDS: Sodium Chloride 0.9% 1,000 ML IV SCH ×2 (03:04→14:25)
[2019-04-20] MEDS: hydrALAZINE 25 MG TAB PO SCH ×3 (05:05→21:13)
[2019-04-20] MEDS: HumaLOG 300 UNITS/3 ML VIAL SC PRN ×2 (05:08→12:13)
[2019-04-20 06:06] LABS: #Monocytes 0.8 thou/uL (0.11-0.59); #Neutrophils 10.3 thou/uL (1.40-6.50); %Basophils 0.1 % (0.0-1.0); %Eosinophils 0.2 % (0.0-10.0); %Lymphocytes 8.3 % (21.0-51.0); %Monocytes 6.2 % (0.0-10.0); %Neutrophils 85.2 % (42.0-75.0); Hemoglobin 8.7 g/dL (12.0-16.0); Mean Corpuscular HGB CONC 34.3 g/dL (32.0-36.0); Mean Corpuscular Hemoglobin 33.7 pg (27.0-31.0); Mean Corpuscular Volume 98.3 fL (78.0-98.0); Mean Platelet Volume 8.3 fL (7.4-10.4); Platelet Count 138 thou/uL (130-400); RBC Distribution Width 13.2 % (11.5-14.5); Red Blood Cell (RBC) Count 2.58 mill/uL (4.20-5.40); White Blood Cell (WBC) Count 12.1 thou/uL (4.8-10.8)
[2019-04-20 06:26] LABS: Anion Gap 20 mmol/L (10-20); BUN (Urea Nitrogen) 44 mg/dL (9.8-20.1); Calc. Creatinine Clearance 4 mL/min (70-130); Calcium 7.9 mg/dL (7.8-10.44); Carbon Dioxide 17 mmol/L (23-31); Chloride 103 mmol/L (98-107); Estimated GFR-MDRD 4; Glucose 158 mg/dL (83-110); Potassium 3.9 mmol/L (3.5-5.1); Sodium 136 mmol/L (136-145)
[2019-04-20 06:42] LABS: Actual Bicarbonate (HCO3a) 20.2 mEq/L (22-28); Base Excess (BEa) -3.3 mEq/L (-2.0 to +3.0); CO2 Tension 30.9 mmHg (35.0-45.0); Calcium, Ionized 1.02 mmol/L (1.12-1.30); Hemoglobin (Hb) 9.3 g/dL (12.0-16.0); O2 Tension (PaO2) 70.6 mmHg (> 60.0); Potassium - ABG Lab 3.61 mmol/L (3.70-5.30); pH, Arterial 7.43 (7.35-7.45)
[2019-04-20 06:57] LABS: Puncture Site RRAD
[2019-04-20 06:58] LABS: ALV-art Gradient 40.505 (0-20)
[2019-04-20] MEDS: Lisinopril 20 MG TAB PO SCH ×2 (09:11→21:12)
[2019-04-20] MEDS: Famotidine 20 MG TAB PO SCH (09:12)
[2019-04-20] MEDS: Amlodipine 5 MG TAB PO SCH ×2 (09:12→21:10)
[2019-04-20] MEDS: Polyethylene Glycol 3350 17 GM Packet PO SCH (09:12)
[2019-04-20] MEDS: Carvedilol 25 MG TAB PO SCH ×2 (09:12→16:44)
--- NOTE | 2019-04-20 09:18 | CT ---
PRELIMINARY REPORT/DIRECT RADIOLOGY/EMERGENCY AFTER HOURS PROCEDURE This report was discussed with Maite Bradshaw RN by Ginette Lerma on Apr 20, 2019 04:25:00 PROVIDER EDUCATION SPECIALIST. Addendum electronically signed by Ginette Lerma on April 20, 2019 4:30:37 AM PROVIDER EDUCATION SPECIALIST EXAM: CT BRAIN WO CON HISTORY: F/U hydrocephalus, s/p EVD placement COMPARISON: CT\SR - CT BRAIN WO CON - 04/17/2019 10:47 PM PROVIDER EDUCATION SPECIALIST FINDINGS: Interval placement of right frontal approach EVD, distal tip of which terminates at the thi rd ventricle. There is new small focus of right intraventricular air and right frontal convexity pneu mocephalus, compatible with EVD placement. No significant change in magnitude of hydrocephalus. Redemonstration of dependently layering intraventricular blood products at the lateral ventricles. Re demonstration of periventricular hypodensities. Stable sulcal effacement at the vertex. IMPRESSION: Interval placement of right frontal approach EVD. No interval change in magnitude of hydr ocephalus. Recommend short interval CT follow-up. ELECTRONICALLY SIGNED BY: Yvonne Umaña MD Apr 20, 2019 4:16:27 AM PROVIDER EDUCATION SPECIALIST FINAL REPORT BRAIN CT WITHOUT IV CONTRAST: EMERGENT AFTER HOURS EXAM TIME: 3:44 AM. DATE: 04/20/2019. COMPARISON: 04/17/2019. FINDINGS: Interval right ventriculostomy tube placed with some air within the ventricles and some pneumocephalu s. There is some persistent intraventricular hemorrhage. Little change in the appearance of the negrita tricular size and overall appearance of the brain. This report is in agreement with the preliminary report. POS: [facility]
[2019-04-20] MEDS ORDERED: Vancomycin HCl 1 GM in Premix Bag 1 BAG IVPB SCH ×2 (09:45→17:15)
--- NOTE | 2019-04-20 10:08 | PRG ---
DATE OF SERVICE: 04/20/2019 SUBJECTIVE: Pia Mistry remains in the ICU, intubated. She is off sedation this morning. She had an intraventricular device placed yesterday, progressive hydrocephalus. OBJECTIVE: VITAL SIGNS: Pulse 69, blood pressure 150/89, saturations are 90%, and respirations 18. CHEST: Decreased breath sounds. No wheezing. CARDIAC: Normal S1 and S2. No gallops. ABDOMEN: No masses. LABORATORY DATA: X-ray is clear. White count 12,000, H and H 8 and 25, and platelet count is normal. A pO2 is 70, pCO2 is 30%, pH is 7.43 at a rate of 12, and FiO2 of 21%. Creatinine is 9 and BUN is 44. Bicarb is 17. She had a CSF done, which shows numerous infection. ASSESSMENT: Metabolic encephalopathy, hydrocephalus, previous bleed, and respiratory failure. PLAN: Hold sedation. Empiric antibiotics were initiated. Continue supportive care and PT. Control blood pressure. Wean Cardene if possible. One-half hour of critical care time. Job ID: [id number]
[2019-04-20 10:21] LABS: Vancomycin, Random 30.4 ug/mL (See Comment)
--- NOTE | 2019-04-20 10:26 | PRG ---
DATE OF SERVICE: 04/20/2019 This is Elia Mclaughlin PA-C dictating a report for Wilfredo Lozano MD. This is a 15 minutes subsequent patient evaluation of which greater than 50% of the exam was spent in counseling and coordinating the patient's care. Remainder of the exam was spent in review of the patient's medical records and review of appropriate imaging studies. Ms. Mistry is hospital day #4 having sustained increased falls, slight amount of ventriculomegaly, urinary tract infection. There was questionable seizure activity. The patient was started on antiepileptics. Given some cardiac issues, Dilantin was stopped and the patient was transitioned to Keppra. An EVD was placed in the right frontal region yesterday. The patient neurologically appears to be improving. She has been off sedation since 6:30 a.m. With the help of her daughters, the patient is primarily Latvian speaking. The patient is able to move or wiggle the toes command on the left. She has no movement of the bilateral hands or left leg at this point. Pupils are equal and reactive bilaterally, although they are sluggishly reactive. Her EVD drain output has been around 78 mL/hour and her ICP has remained roughly 7 to 8. At this point, we will continue the drain. May be able to wean her off this drain in the next few days. So far, her glucose in the CSF is high, protein is normal. There is no growth on the culture. Gram stain is negative. We will continue her on vancomycin for the next few days and this will be renally adjusted. I have discussed this with pharmacy. Her family was updated at bedside. Review of her head CT from this morning demonstrates excellent placement of the ventricular catheter in the right frontal ventricle. Again, at this point, we will keep the EVD open to drain at 10 cm of water zero to the level of the ear canal. We appreciate Infectious Disease following the patient. Please call with any changes in patient's neurologic status. Otherwise, we will hope to start weaning the drain later this week. Job ID: [id number]
--- NOTE | 2019-04-20 11:25 | RAD ---
CHEST 1 VIEW PORTABLE: HISTORY: Ventilation patient, respiratory insufficiency. FINDINGS: Monitor leads overlie the chest somewhat obscuring it. Endotracheal tube and NG tubes are in place. Bilateral vascular congestion. No confluent pneumonia or pleural effusion. IMPRESSION: Evidence for bilateral vascular congestion. Continued short-term followup. POS: [facility]
--- NOTE | 2019-04-20 12:38 | PRG ---
DATE OF SERVICE: 04/20/2019 SUBJECTIVE: The patient is seen and examined in ICU, remains intubated, and nonverbal. Blood pressure remains stable on Cardene drip, off dopamine drip. OBJECTIVE: GENERAL: This is an elderly female, intubated, seen in ICU. VITAL SIGNS: Temperature 99.5, pulse 72, respirations 21, blood pressure 145/61. HEENT: Intubated. CV: S1 and S2 heard. RESPIRATORY: Clear. GI: Abdomen is soft. MUSCULOSKELETAL: 1+ edema. DERMATOLOGIC: No skin rash. NEUROLOGIC: Intubated. LABORATORY DATA: Hemoglobin is 8.7. Potassium 3.9, BUN is 44, creatinine is 9.5. ASSESSMENT: 1. End-stage renal disease. Plan to have dialysis today. Seems like she is stable to have dialysis today. 2. History of hypertension, on Cardene drip. 3. Edema. We will be cautious when we remove fluid given the intracranial bleed. 4. Intracranial bleed. We will avoid heparin. 5. Anemia. Monitor. 6. We will add Epogen as tolerated. 7. History of hypertension, stable. PLAN: To have dialysis today as tolerated. Job ID: [id number]
--- NOTE | 2019-04-20 13:12 | PRG ---
DATE OF SERVICE: 04/20/2019 SUBJECTIVE: There were no any unexpected events overnight. There was no seizure. OBJECTIVE: VITAL SIGNS: Blood pressure is 157/67, pulse is 72, respirations are 19, O2 saturation is 99%. GENERAL: She does not have any sedation. She does not respond to me much. She is in deep coma. HEENT: Her pupils midsize and sluggishly reactive to light. There is no any contact with her as she is orally intubated. LUNGS: Breath sounds somewhat diminished at both bases. HEART: S1 and S2 normal. No S3. No S4. ABDOMEN: Soft, nondistended. EXTREMITIES: No clubbing, cyanosis, or edema. NEUROLOGICAL: She is in deep comatose state. She does not follow any commands. There is not much of any spontaneous movement. LABORATORY DATA: White count of 12.1, hemoglobin of 8.7, hematocrit 25.4, and platelet count is 138,000. ABGs showed pH of 7.43, pCO2 of 30.9, pO2 is 70.6, base excess is -3.3. Sodium of 136, potassium 3.9, chloride 103, CO2 of 17, BUN 44, creatinine 9.53, glucose is 158. Microbiology, CSF cultures negative. IMPRESSION: 1. Intracranial hemorrhage, possible urinary tract infection, but it looks like the sample of urine we obtained was not a good one, and it is not adequate diagnostically. The patient is covered with antibiotic for that possibility. 2. Hypertension, on her blood pressure medications through the NG tube plus Cardene drip on the top of this to control systolic blood pressure less than 160. 3. End-stage renal disease, not dialyzed yesterday, and Nephrology will make decision about possible dialysis today. 4. Metabolic encephalopathy, most likely related to her current renal failure. 5. Bradycardia. We will try to wean her off dopamine drip, which was recommended per Cardiology. DISCUSSION: The patient is going to be seen by a neurologist today regarding her neuro status. She had EVD done two days ago by Neurosurgery. The cultures of CSF negative so far. The patient is on vancomycin and cefepime. She was switched from Dilantin to Keppra since she had bradycardic episodes after she had the first dose of Dilantin, and she seems to be doing a better in terms of seizure control and lack of any side effects. We will continue her mechanical ventilation and classifier operator/critical care . Job ID: [id number]
[2019-04-20 15:27] LABS: HBSAg Index 0.26 S/CO (0-0.99); Hep B Surf Ag Non-Reactive S/CO (NonReactive)
[2019-04-20] MEDS: Cefepime 1 GM in Sodium Chloride 0.9% 100 ML IVPB SCH (16:44)
[2019-04-20] MEDS ORDERED: Vancomycin Sliding Scale 1 EACH FS ONE (17:15)
[2019-04-20] MEDS ORDERED: HOLD VANCOMYCIN FOR LEVEL >20 FS SCH (17:15)
[2019-04-20] MEDS ORDERED: Vancomycin HCl 750 MG in Sodium Chloride 0.9% 250 ML 250 ML IVPB SCH (17:15)
[2019-04-20] MEDS ORDERED: Vancomycin HCl 250 MG in Sodium Chloride 0.9% 100 ML IVPB SCH (17:15)
[2019-04-20] MEDS ORDERED: Vancomycin HCl 500 MG in Sodium Chloride 0.9% 100 ML IVPB SCH (17:15)
[2019-04-20 18:03] LABS: Vancomycin, Random 19.5 ug/mL (See Comment)
[2019-04-21] MEDS: HumaLOG 300 UNITS/3 ML VIAL SC PRN ×3 (00:25→20:32)
[2019-04-21] MEDS: niCARdipine 50 MG in Sodium Chloride 0.9% 250 ML 230 ML IVPB SCH ×2 (04:21→09:22)
[2019-04-21 04:25] LABS: Anion Gap 11 mmol/L (10-20); BUN (Urea Nitrogen) 17 mg/dL (9.8-20.1); Calc. Creatinine Clearance 11 mL/min (70-130); Calcium 6.5 mg/dL (7.8-10.44); Carbon Dioxide 20 mmol/L (23-31); Chloride 110 mmol/L (98-107); Estimated GFR-MDRD 11; Glucose 85 mg/dL (83-110); Potassium 2.8 mmol/L (3.5-5.1); Sodium 138 mmol/L (136-145)
[2019-04-21] MEDS ORDERED: Potassium Chloride 20 MEQ TAB PO SCH (04:45)
[2019-04-21 04:48] LABS: #Eosinphils 0.2 thou/uL (0.0-0.7); #Monocytes 0.7 thou/uL (0.11-0.59); #Neutrophils 7.8 thou/uL (1.40-6.50); %Basophils 0.1 % (0.0-1.0); %Eosinophils 2.5 % (0.0-10.0); %Lymphocytes 10.4 % (21.0-51.0); %Monocytes 6.9 % (0.0-10.0); Hemoglobin 7.9 g/dL (12.0-16.0); Mean Corpuscular HGB CONC 34.1 g/dL (32.0-36.0); Mean Corpuscular Hemoglobin 33.3 pg (27.0-31.0); Mean Corpuscular Volume 97.5 fL (78.0-98.0); Mean Platelet Volume 8.3 fL (7.4-10.4); Platelet Count 113 thou/uL (130-400); Platelet Morphology Comment Appears Decreased; RBC Distribution Width 13.1 % (11.5-14.5); Red Blood Cell (RBC) Count 2.38 mill/uL (4.20-5.40); White Blood Cell (WBC) Count 9.7 thou/uL (4.8-10.8)
[2019-04-21] MEDS ORDERED: Potassium Chloride 20 MEQ in Premix Bag 1 BAG IVPB SCH (05:00)
[2019-04-21] MEDS: hydrALAZINE 25 MG TAB PO SCH ×3 (05:12→20:33)
[2019-04-21 06:43] LABS: Actual Bicarbonate (HCO3a) 21.8 mEq/L (22-28); Base Excess (BEa) -1.1 mEq/L (-2.0 to +3.0); CO2 Tension 29.3 mmHg (35.0-45.0); Calcium, Ionized 1.07 mmol/L (1.12-1.30); Carboxyhemoglobin (COHb) 0.9 gm% (0.0-3.0); Hemoglobin (Hb) 8.9 g/dL (12.0-16.0); O2 Tension (PaO2) 71.6 mmHg (> 60.0); Potassium - ABG Lab 4.35 mmol/L (3.70-5.30); pH, Arterial 7.49 (7.35-7.45)
[2019-04-21 07:03] LABS: Puncture Site RRAD
[2019-04-21 07:04] LABS: ALV-art Gradient 41.505 (0-20)
[2019-04-21] MEDS: Carvedilol 25 MG TAB PO SCH ×2 (08:10→17:22)
[2019-04-21] MEDS: Lisinopril 20 MG TAB PO SCH ×2 (08:10→20:34)
[2019-04-21] MEDS: Polyethylene Glycol 3350 17 GM Packet PO SCH (08:11)
[2019-04-21] MEDS: Famotidine 20 MG TAB PO SCH (08:11)
[2019-04-21] MEDS: Amlodipine 5 MG TAB PO SCH (08:11)
--- NOTE | 2019-04-21 10:18 | RAD ---
PORTABLE AP CHEST XRAY: HISTORY: On ventilator. Followup evaluation. COMPARISON: 04/20/2019. FINDINGS: Endotracheal tube and nasogastric tube remain in place and unchanged in position. Loop recording dev ice overlies the lower chest in the midline. A pacing pad overlying the left chest has been removed. Cardiac silhouette is magnified by patient rotation and portable technique. The interstitial densit ies are at the upper limits of normal. Pulmonary vasculature is within normal limits. There is a qu estion of slight blunting of the right lateral costophrenic angle, but this may be related to patient rotation as opposed to pleural effusion. Surgical clips overlie the right upper quadrant. Deformit y of the proximal right humerus is again seen. No other interval change. IMPRESSION: 1. Lines and tubes stable in position. 2. Mild prominence of interstitial densities, some of which could be related to technique. POS: [facility]
--- NOTE | 2019-04-21 10:53 | PDOC.HOSPP ---
- Subjective Encounter Date: 04/21/19 Encounter Time: 13:30 non-verbal Subjective: Patient back in juctional rhythm this AM, started back on dopamine for bradycardia and hypotension. Family made DNAR. Considering withdrawl of care. - Objective Vital Signs & Weight: Vital Signs (12 hours) Temp Pulse Resp BP 04/21/19 10:00 13 04/21/19 09:39 62 04/21/19 08:11 70 154/54 H 04/21/19 08:10 159/59 H 04/21/19 08:00 98.7 F 04/21/19 07:00 70 04/21/19 06:00 12 04/21/19 05:12 69 159/59 H 04/21/19 04:00 98.8 F 12 04/21/19 02:05 66 152/59 H 04/21/19 02:00 12 04/21/19 00:00 99.4 F 11 L Weight Admit Weight 120 lb 1.6 oz Weight 128 lb 4.944 oz Most Recent Monitor Data Heart Rate from ECG 63 NIBP 140/57 NIBP BP-Mean 84 Respiration from ECG 16 SpO2 98 I&O: 04/20/19 04/21/19 04/22/19 06:59 06:59 06:59 Intake Total 2417.2 2905 175 Output Total 126 106 23 Balance 2291.2 2799 152 Result Diagrams: 04/21/19 03:09 04/21/19 13:45 Additional Labs: Accuchecks 04/21/19 04/20/19 04/20/19 00:24 19:44 16:43 POC Glucose 162 H 146 H 103 04/20/19 04/20/19 04/19/19 10:25 04:41 19:45 POC Glucose 220 H 171 H 106 04/19/19 04/19/19 04/19/19 16:22 14:04 09:46 POC Glucose 219 H 266 H 251 H 04/19/19 04/19/19 04:28 01:36 POC Glucose 172 H 138 H Hospitalist ROS - Review of Systems ROS unobtainable: due to mental status - Medication Medications: Active Medications Generic Name Dose Route Start Last Admin Trade Name Freq PRN Reason Stop Dose Admin Carvedilol 25 mg 04/17/19 17:00 04/21/19 08:10 Coreg PO 25 mg BID-WM YUNG Administration Clonidine 0.1 mg 04/17/19 12:07 04/17/19 12:32 Catapres PO 0.1 mg Q4H PRN Administration SBP Greater Than 180 Famotidine 20 mg 04/18/19 09:00 04/21/19 08:11 Pepcid PO 20 mg DAILY YUNG Administration Hydralazine HCl 5 mg 04/16/19 21:34 04/19/19 22:32 Apresoline SLOW IVP 5 mg Q4H PRN Administration SBP GREATER THAN 160 Hydralazine HCl 100 mg 04/17/19 14:00 04/21/19 05:12 Apresoline PO 100 mg Q8HR YUNG Administration Cefepime HCl 1 gm/ Sodium 100 mls @ 200 mls/hr 04/17/19 16:00 04/20/19 16:44 Chloride IVPB 100 mls 1600 YUNG Administration Nicardipine HCl 50 mg/ Sodium 250 mls @ 0 mls/hr 04/17/19 15:00 04/21/19 09: 22 Chloride IVPB 250 mls INF YUNG Administration Protocol Titrate Levetiracetam 500 mg/ Device 100 mls @ 200 mls/hr 04/19/19 09:00 04/21/19 08: 11 IVPB 100 mls BID YUNG Administration Dopamine HCl/Dextrose 250 mls @ 10.744 mls/hr 04/19/19 10:00 04/20/19 02:58 Dopamine 400 Mg/D5w 250 Ml IVPB 250 mls INF YUNG Administration 5 MCG/KG/MIN Vancomycin HCl 250 mg/ Sodium 100 mls @ 100 mls/hr 04/20/19 17:15 04/20/19 19 :26 Chloride IVPB 100 mls WILLCALL YUNG Administration Insulin Human Lispro 0 units 04/16/19 21:30 04/21/19 00:25 Humalog SC 2 unit .MILD SLIDING SCALE PRN Administration Mild Correctional Scale Labetalol HCl 10 mg 04/17/19 08:00 04/17/19 18:51 Normodyne SLOW IVP 10 mg Q15M PRN Administration BP >150/90 Lisinopril 40 mg 04/18/19 09:00 04/21/19 08:10 Zestril PO 40 mg BID YUNG Administration Polyethylene Glycol 17 gm 04/18/19 09:00 04/21/19 08:11 Miralax PO Not Given QAM YUNG Sodium Chloride 10 ml 04/17/19 09:00 04/21/19 08:11 Flush - Normal Saline IVF 10 ml Q12HR YUNG Administration - Exam General Appearance: ill appearing ENT: moist mucosa ENT - other findings: ventricular drain in place Heart: RRR, no murmur Respiratory: CTAB, no wheezes Gastrointestinal: soft, normal bowel sounds Psychiatric - other findings: not responsive on the vent currently Hosp A/P (1) Acute intracranial hemorrhage Code(s): I62.9 - NONTRAUMATIC INTRACRANIAL HEMORRHAGE, UNSPECIFIED Status: Acute Plan: s/p Intraventricular drain placement, followed by neurosurgery, plan to wean drain this week, on Keppra (2) ESRD (end stage renal disease) Code(s): N18.6 - END STAGE RENAL DISEASE Status: Chronic Plan: on dialysis (3) Hypokalemia Code(s): E87.6 - HYPOKALEMIA Status: Acute Plan: replaced this AM, recheck tomorrow (4) Hypertension Code(s): I10 - ESSENTIAL (PRIMARY) HYPERTENSION Status: Chronic Qualifiers: Hypertension type: essential hypertension Qualified Code(s): I10 - Essential (primary) hypertension Plan: on cardene drip (5) Bradycardia Code(s): R00.1 - BRADYCARDIA, UNSPECIFIED Status: Acute Plan: resolved, wean dopamine as tolerated, cardiology following - Plan continue antibiotics, PT/OT Consults: Palliative Care Family considering withdrawl of care Pulmonology Consult: Meds - Medications MAR Reviewed: Yes Medications: Current Medications Acetaminophen (Tylenol Elixir) 650 mg PO Q6H PRN PRN Reason: Fever > 101 or Mild Pain (1-3) Acetaminophen (Tylenol) 650 mg [place] Q6H PRN PRN Reason: Fever > 101 or Mild Pain (1-3) Albuterol/Ipratropium (Duoneb) 3 ml NEB Q6H PRN PRN Reason: SOB &/or Wheezing Carvedilol (Coreg) 25 mg PO BID-WM YUNG Last Admin: 04/21/19 08:10 Dose: 25 mg Clonidine (Catapres) 0.1 mg PO Q4H PRN PRN Reason: SBP Greater Than 180 Last Admin: 04/17/19 12:32 Dose: 0.1 mg Dextrose/Water (Dextrose 50%) 25 gm SLOW IVP PRN PRN PRN Reason: Hypoglycemia Famotidine (Pepcid) 20 mg PO DAILY [facility] Last Admin: 04/21/19 08:11 Dose: 20 mg Glucagon (Glucagon) 1 mg IM PRN PRN PRN Reason: Hypoglycemia Hydralazine HCl (Apresoline) 5 mg SLOW IVP Q4H PRN PRN Reason: SBP GREATER THAN 160 Last Admin: 04/19/19 22:32 Dose: 5 mg Hydralazine HCl (Apresoline) 100 mg PO Q8HR YUNG Last Admin: 04/21/19 05:12 Dose: 100 mg Cefepime HCl 1 gm/ Sodium (Chloride) 100 mls @ 200 mls/hr IVPB 1600 YUNG Last Admin: 04/20/19 16:44 Dose: 100 mls Dextrose/Water (D5w) 1,000 mls @ 0 mls/hr IV .Q0M PRN PRN Reason: Hypoglycemia Nicardipine HCl 50 mg/ Sodium (Chloride) 250 mls @ 0 mls/hr IVPB INF [facility]; Protocol Last Admin: 04/21/19 09:22 Dose: 250 mls Levetiracetam 500 mg/ Device 100 mls @ 200 mls/hr IVPB BID [facility] Last Admin: 04/21/19 08:11 Dose: 100 mls Dopamine HCl/Dextrose (Dopamine 400 Mg/D5w 250 Ml) 250 mls @ 10.744 mls/hr IVPB INF [facility] Last Admin: 04/20/19 02:58 Dose: 250 mls Vancomycin HCl 1 gm/ Device 200 mls @ 200 mls/hr IVPB WILLCALL YUNG Vancomycin HCl 750 mg/ Sodium (Chloride) 250 mls @ 250 mls/hr IVPB WILLCALL YUNG Vancomycin HCl 500 mg/ Sodium (Chloride) 100 mls @ 100 mls/hr IVPB WILLCALL YUNG Vancomycin HCl 250 mg/ Sodium (Chloride) 100 mls @ 100 mls/hr IVPB WILLCALL YUNG Last Admin: 04/20/19 19:26 Dose: 100 mls Insulin Human Lispro (Humalog) 0 units SC .MILD SLIDING SCALE PRN PRN Reason: Mild Correctional Scale Last Admin: 04/21/19 00:25 Dose: 2 unit Insulin Human Lispro (Humalog) 0 units SC .BEDTIME SLIDING SC PRN PRN Reason: Bedtime Correctional Scale Labetalol HCl (Normodyne) 10 mg SLOW IVP Q15M PRN PRN Reason: BP >150/90 Last Admin: 04/17/19 18:51 Dose: 10 mg Lisinopril (Zestril) 40 mg PO BID [facility] Last Admin: 04/21/19 08:10 Dose: 40 mg Mineral Oil/White Petrolatum (Systane Nighttime Eye Ointment) 0 gm EA EYE PRN PRN PRN Reason: Dry Eyes Miscellaneous Medication (Pharmacy To Dose) 1 each IVPB PRN PRN PRN Reason: Pharmacy to dose Nifedipine (Procardia Xl) 30 mg PO BID [facility] Nifedipine (Procardia Xl) 30 mg PO NOW [facility] Stop: 04/21/19 13:00 Hold Asa & Blood (Thinners) 1 each FS ONE [facility] Stop: 05/16/19 21:31 Hold Vancomycin For (Level >20) 0 each FS .AT DIALYSIS [facility] Ondansetron HCl (Zofran) 4 mg SLOW IVP Q6H PRN PRN Reason: Nausea/Vomiting Polyethylene Glycol (Miralax) 17 gm PO QAM [facility] Last Admin: 04/21/19 08:11 Dose: Not Given Propofol (Diprivan) 1,000 mg IV INF PRN; Protocol PRN Reason: TO ACHIEVE GOAL RASS Stop: 05/19/19 11:11 Propofol (Diprivan Bolus) 20 mg IV Q5MIN PRN PRN Reason: BREAKTHROUGH AGITATION Stop: 05/19/19 11:11 Sodium Chloride (Flush - Normal Saline) 10 ml IVF Q12HR [facility] Last Admin: 04/21/19 08:11 Dose: 10 ml Sodium Chloride (Flush - Normal Saline) 10 ml IVF PRN PRN PRN Reason: Saline Flush - Allergies Allergies/Adverse Reactions: Allergies Allergy/AdvReac Type Severity Reaction Status Date / Time linagliptin [From Tradjenta] Allergy Intermediate Rash Verified 12/08/17 17:19 adhesive tape Allergy Verified 12/08/17 17:19
[2019-04-21] MEDS ORDERED: NIFEdipine XL 30 MG TAB PO SCH (11:00)
--- NOTE | 2019-04-21 11:11 | OP ---
DATE OF PROCEDURE: 04/19/2019 INDICATION FOR PROCEDURE: Ms. Mistry was reported to have bilateral upper extremity twitching early this morning. The nurse was concerned about seizure disorder. She was initiated on fosphenytoin, which resulted in bradycardia and decreased blood pressure. The fosphenytoin was held and the patient has been switched to levetiracetam and her hemodynamics have improved with the initiation of dopamine. At this point, her hemodynamics were stable, but she has been intubated for decreased level of alertness. She has twitching and sporadic extremities that is not rhythmic. I do not suspect active seizure at this point. I have discussed her care with her medical colleagues along with our nursing team. The issue at this point is now that she has a structural pathology related to her repeat head injuries that is leading to essentially decline in her neurologic state. We do not have an exam now given the patient's intubation and poor exam and as such, I would advocate placement of an external ventricular drain to allow us to sample CSF and diagnostically and if needed therapeutically, we treat any intracranial pressure. We have discussed the consent with the family and they wish that we proceed. PREPROCEDURE DIAGNOSES: Ventriculomegaly with neurologic decline. POSTPROCEDURE DIAGNOSES: Ventriculomegaly with neurologic decline. PROCEDURE PERFORMED: Placement of external ventricular drain. DESCRIPTION OF PROCEDURE: After informed consent was obtained from the patient's family, the patient was placed in the supine and head of bed elevated position. The right Rangel's point was identified. Hair was clipped. This area was sterilely cleansed, prepared, and draped. A linear incision was made at the drill brought in and the skull perforated. The dura was then opened and the ventricular catheter was placed with return of slightly blood tinged CSF not under pressure. This was connected to the Moss drain or to the external ventricular drain system and the drain was kept open at 10 cm of water. We did sample CSF to allow for assessment of CSF cytology and any infectious source along with protein and glucose. Job ID: [id number]
--- NOTE | 2019-04-21 11:24 | PRG ---
DATE OF SERVICE: 04/21/2019 SUBJECTIVE: An 83-year-old female being seen for end-stage renal disease. The patient remains intubated and resting. OBJECTIVE: CONSTITUTIONAL: She is resting. VITAL SIGNS: Afebrile, pulse 60, breathing 16, and blood pressure 140/57. GENERAL APPEARANCE AND MENTAL STATUS: Fair. HEAD/NECK: Normocephalic. Atraumatic. EYES: EOMI. No deformity. EARS: Clear. No ulcers. NOSE: Intact. No lesions. MOUTH: Clear. No discharge. THROAT: Clear. No exudate. LUNGS: Clear. No crackles. CARDIAC: S1, S2. No rub. ABDOMEN: Benign. Bowel sounds positive. GENITALIA/RECTUM: Jarrett absent. BACK/EXTREMITIES: Edema 0+. NEUROLOGICAL: The patient is resting. SKIN: LYMPHATICS: LABORATORY DATA: Labs show potassium is 2.8. Repeat potassium is pending. ASSESSMENT: 1. Stage 6 chronic kidney disease. Plan dialysis tomorrow. 2. Hypertension, on blood pressure lowering medications including Cardene. 3. Anemia. We will consider transfusion tomorrow. Overall prognosis is poor. 4. Hypocalcemia. We will recheck calcium again today. Job ID: [id number]
--- NOTE | 2019-04-21 12:23 | PRG ---
DATE OF SERVICE: 04/21/2019 SERVICE: Pulmonary Medicine. INTERVAL HISTORY: The patient is doing fine from respiratory standpoint. She remains on 21% FiO2 and a PEEP of 5. Endotracheal tube is in place because she does not have the ability to protect her airway. There has been no interval change to her condition otherwise. PHYSICAL EXAMINATION: VITAL SIGNS: Afebrile. Pulse 65, blood pressure 151/58, respirations 13, saturation 95%, currently on 21% FiO2 and PEEP of 5. GENERAL: The patient is intubated. She is on no sedation. HEENT: Normocephalic, atraumatic. Sclerae white. Conjunctivae pink. Oral mucosa is moist without lesions. LUNGS: Decent air entry. No prolonged expiratory phase or wheezing is appreciated. HEART: Normal rate. Regular. ABDOMEN: Soft, nontender, and nondistended. Bowel sounds are positive. MUSCULOSKELETAL: No cyanosis or clubbing. There is no pitting in bilateral lower extremities. LABORATORY DATA: WBC 9.7, hemoglobin 7.9, platelets 113,000. PH 7.49, pCO2 of 29, pO2 of 71. Potassium 2.8, basic metabolic profile is otherwise unremarkable. Creatinine 3.9. Calcium 6.5. Urinalysis is positive for pyuria. CSF fluid has 45% neutrophils, 45% lymphocytes. There were significant red blood cells present. CSF protein is significantly downtrending. Vancomycin trough is 19. Urine culture is growing multiple organisms. Body fluid culture is negative x2. IMAGING DATA: Chest x-ray demonstrates mild prominence of the interstitial densities, likely secondary to low lung volumes. Endotracheal tube is roughly 1 to 2 cm above the level of oscar. There is an enteric catheter coursing below the level of the diaphragm. No obvious consolidating changes are present, though a little bit of atelectasis is likely present at the right base. ASSESSMENT: 1. Respiratory failure secondary to inability to protect airway. 2. Intraventricular hemorrhage. 3. End-stage renal disease. 4. Dialysis. DISCUSSION AND PLAN: The big picture here is that this patient has advancing dementia, was falling frequently and was unable to participate with physical therapy prior to this admission. She has end-stage renal disease and has subsequently had a catastrophic neurologic injury. This injury is likely going to require a several week hospital stay, during which she is going to be bed-bound. The likelihood that she will make a meaningful recovery from a functional standpoint is quite low. As such, palliative consultation will be placed. I do believe that it would be in keeping with most people's value structures to transition over to comfort care at this time, though what is right for this patient will be discussed through time with the family. Critical care time: 30 minutes. Job ID: [id number] MTDD
--- NOTE | 2019-04-21 13:00 | PRG ---
DATE OF SERVICE: 04/21/2019 This is Elia Mclaughlin PA-C dictating a report for Wilfredo Lozano MD. A 50-minute subsequent patient evaluation of which greater than 50% of the exam was spent counseling and coordinating the patient's care. Remainder of the exam was spent in review of the patient's medical records and formulation of treatment plan on Pia Pink. Ms. Mistry is hospital day #5 having sustained multiple falls and some ventriculomegaly. She has had her EVD for 2 days now. She remains neurologically stable compared to yesterday. She withdraws from pain in all extremities. She attempts to open her eyes. She remains ventilated. Her EVD is set at 10 cm of water. We will raise this to 15 cm of water and monitor the patient's neurologic exam. Her urine sample grew out several different types of bacteria on cultures. We are awaiting cultures. Her CSF has not yet grown out anything on culture. We will continue to monitor the patient's likely plan for repeat scan in the next day or two depending on the patient's neurologic status. We are attempting to wean the drain to see if she will be shunt dependent or if we can get the EVD removed. Please call with any changes in the patient's neurologic status. Job ID: [id number]
[2019-04-21] MEDS: DOPamine 400 MG/D5W 250 ML 250 ML IVPB SCH (13:15)
[2019-04-21 14:23] LABS: Potassium 4.6 mmol/L (3.5-5.1)
--- NOTE | 2019-04-21 16:17 | PDOC.PALCO ---
Palliative Care Consult - Consult Details Requesting Physician: Dr Merchant Reason for Consult: goals of care, advance directives assistance, family support Family Members Present: Several children and grandchildren - Pertinent HPI 83 year old female who has hemodialysis for Admitted fo rmedical management her end stage renal disease. She became weak during dialysis and was taken to [facility] emergency room for evaluation. Known to have dementia, and lives with one of her daughter who is her primary caregiver. Family reports prior to admission patient has been having an increase in falls and confusion. CT revealed a subarachnoid bleed. No complaint of headache. Admitted for medical managemnt. During admission patient has declined and is on mechanical ventilation, neurological injury. - Pertinent PMH Diabetes, II, HTN, CKD requiring hemodialysis, Dementia - Social History Smoking Status: Former smoker Smoking: quit greater than 1 year Alcohol Use: none Drug Use History: none Living Situation: with family/parents (Lives with a daughter) - Medications MAR Reviewed: Yes - Allergies Allergies/Adverse Reactions: Allergies Allergy/AdvReac Type Severity Reaction Status Date / Time linagliptin [From Tradjenta] Allergy Intermediate Rash Verified 12/08/17 17:19 adhesive tape Allergy Verified 12/08/17 17:19 - Subjective Mechanical ventilation - ROS Non Response: due to endotracheal tube, due to mental status - Objective Vital Signs: Vital Signs - Most Recent Temp Pulse Resp BP Pulse Ox 98.3 F 58 L 9 L 154/54 H 99 04/21/19 12:00 04/21/19 15:01 04/21/19 14:00 04/21/19 11:30 04/21/19 08:00 Palliative Performance Scale: 10 - Physical Exam Constitutional: encephalitic, ill appearing, mild distress HEENT: moist MMs Respiratory: diminished lung sound Cardiovascular: no significant murmur, irregular Gastrointestinal: non-tender, positive bowel sounds Genitourinary: ernst catheter Musculoskeletal: edema present Deviation from normal: 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 Discussed disease progression, decline , end of life. Family shared patient loved to dance and could "dance longer than anyone". Family members coming. Father Wallace called to visit with family and anoint patient. *Transition to No resuscitation measures *discussed possible comfort care for patient to prevent suffering *Therapeutic listening and support [90] minutes spent on this encounter with >50% of the time in counseling and coordination of care. Thank you for this very appropriate consult.
[2019-04-21] MEDS: Cefepime 1 GM in Sodium Chloride 0.9% 100 ML IVPB SCH (16:20)
[2019-04-21] MEDS: NIFEdipine XL 30 MG TAB PO SCH (20:36)
[2019-04-21] MEDS: hydrALAZINE 20 MG/ML VIAL SLOW IVP PRN (23:32)
[2019-04-22] MEDS: cloNIDine 0.1 MG TAB PO PRN (03:54)
[2019-04-22 04:56] LABS: #Eosinphils 0.3 thou/uL (0.0-0.7); #Monocytes 0.9 thou/uL (0.11-0.59); #Neutrophils 9.7 thou/uL (1.40-6.50); %Basophils 0.3 % (0.0-1.0); %Eosinophils 2.9 % (0.0-10.0); %Lymphocytes 8.4 % (21.0-51.0); %Monocytes 7.1 % (0.0-10.0); %Neutrophils 81.4 % (42.0-75.0); Hemoglobin 8.9 g/dL (12.0-16.0); Mean Corpuscular HGB CONC 34.2 g/dL (32.0-36.0); Mean Corpuscular Hemoglobin 33.6 pg (27.0-31.0); Mean Corpuscular Volume 98.2 fL (78.0-98.0); Platelet Count 130 thou/uL (130-400); RBC Distribution Width 13.1 % (11.5-14.5); Red Blood Cell (RBC) Count 2.64 mill/uL (4.20-5.40)
[2019-04-22] MEDS: hydrALAZINE 20 MG/ML VIAL SLOW IVP PRN (05:05)
[2019-04-22 05:23] LABS: Anion Gap 15 mmol/L (10-20); BUN (Urea Nitrogen) 35 mg/dL (9.8-20.1); Calc. Creatinine Clearance 7 mL/min (70-130); Calcium 8.1 mg/dL (7.8-10.44); Carbon Dioxide 22 mmol/L (23-31); Chloride 101 mmol/L (98-107); Estimated GFR-MDRD 6; Glucose 146 mg/dL (83-110); Potassium 4.6 mmol/L (3.5-5.1); Sodium 133 mmol/L (136-145)
[2019-04-22 05:25] VITALS: BMI 25.7
[2019-04-22] MEDS: hydrALAZINE 25 MG TAB PO SCH ×2 (05:49→14:43)
[2019-04-22 06:55] LABS: Actual Bicarbonate (HCO3a) 19.2 mEq/L (22-28); Base Excess (BEa) -4.2 mEq/L (-2.0 to +3.0); Calcium, Ionized 1.08 mmol/L (1.12-1.30); Carboxyhemoglobin (COHb) 1.1 gm% (0.0-3.0); Hemoglobin (Hb) 9.3 g/dL (12.0-16.0); O2 Tension (PaO2) 67.1 mmHg (> 60.0); Potassium - ABG Lab 4.52 mmol/L (3.70-5.30); pH, Arterial 7.44 (7.35-7.45)
[2019-04-22 06:56] LABS: Puncture Site RRA
[2019-04-22] MEDS: Famotidine 20 MG TAB PO SCH (07:31)
[2019-04-22] MEDS: Carvedilol 25 MG TAB PO SCH ×2 (07:31→16:08)
[2019-04-22] MEDS: Polyethylene Glycol 3350 17 GM Packet PO SCH (07:32)
[2019-04-22] MEDS: Lisinopril 20 MG TAB PO SCH (07:32)
[2019-04-22 08:05] VITALS: TEMP 98.9
[2019-04-22] MEDS: NIFEdipine XL 30 MG TAB PO SCH (08:51)
--- NOTE | 2019-04-22 08:59 | RAD ---
CHEST ONE VIEW: INDICATIONS: History of intubation. COMPARISON: Prior exam dated 04/20/2019. FINDINGS: Tubes and lines are unchanged. Cardiomegaly and pulmonary vascular congestion persist. There is worse ros infrahilar opacity, suspicious for edema or pneumonia. No pleural effusion is evident. IMPRESSION: 1. Worsening infrahilar opacities bilaterally may reflect worsening edema or pneumonia. Continued fol lowup is recommended. 2. Tubes and lines are stable. 3. Stable cardiomegaly with mild pulmonary vascular congestion. POS: OFF
--- NOTE | 2019-04-22 09:03 | PDOC.HOSPP ---
- Subjective Encounter Date: 04/22/19 Encounter Time: 10:45 Subjective: Patient with severe hypertension this AM, Dopamine had to be d/c'd. Later she tolerated carvedilol, but after procardia again like yesterday she had bradycardia, now back on low dose of Dopamine. No other changes overnight. - Objective Vital Signs & Weight: Vital Signs (12 hours) Temp Pulse Resp BP 04/22/19 08:51 69 158/56 H 04/22/19 08:00 98.9 F 72 156/68 H 04/22/19 07:32 168/57 H 04/22/19 05:57 15 04/22/19 05:49 73 190/72 H 04/22/19 05:05 190/69 H 04/22/19 04:00 99.4 F 12 04/22/19 03:54 188/65 H 04/22/19 02:40 77 171/60 H 04/22/19 02:00 13 04/22/19 00:00 99.0 F 16 04/21/19 23:32 74 172/63 H 04/21/19 22:25 71 163/62 H 04/21/19 22:00 13 Weight Admit Weight 120 lb 1.6 oz Weight 131 lb 13.383 oz Most Recent Monitor Data Heart Rate from ECG 72 NIBP 156/68 NIBP BP-Mean 97 Respiration from ECG 13 SpO2 98 I&O: 04/21/19 04/22/19 04/23/19 06:59 06:59 06:59 Intake Total 2905 681.2 75 Output Total 106 92 12 Balance 2799 589.2 63 Result Diagrams: 04/22/19 04:45 04/22/19 04:45 Hospitalist ROS - Review of Systems ROS unobtainable: due to endotracheal tube - Medication Medications: Active Medications Generic Name Dose Route Start Last Admin Trade Name Freq PRN Reason Stop Dose Admin Carvedilol 25 mg 04/17/19 17:00 04/22/19 07:31 Coreg PO 25 mg BID-WM YUNG Administration Clonidine 0.1 mg 04/17/19 12:07 04/22/19 03:54 Catapres PO 0.1 mg Q4H PRN Administration SBP Greater Than 180 Famotidine 20 mg 04/18/19 09:00 04/22/19 07:31 Pepcid PO 20 mg DAILY YUNG Administration Hydralazine HCl 100 mg 04/17/19 14:00 04/22/19 05:49 Apresoline PO 100 mg Q8HR YUNG Administration Hydralazine HCl 10 mg 04/21/19 23:17 04/22/19 05:05 Apresoline SLOW IVP 10 mg Q6H PRN Administration SBP GREATER THAN 160 Cefepime HCl 1 gm/ Sodium 100 mls @ 200 mls/hr 04/17/19 16:00 04/21/19 16:20 Chloride IVPB 100 mls 1600 YUNG Administration Nicardipine HCl 50 mg/ Sodium 250 mls @ 0 mls/hr 04/17/19 15:00 04/21/19 09: 22 Chloride IVPB 250 mls INF YUNG Administration Protocol Titrate Levetiracetam 500 mg/ Device 100 mls @ 200 mls/hr 04/19/19 09:00 04/22/19 08: 51 IVPB 100 mls BID YUNG Administration Dopamine HCl/Dextrose 250 mls @ 10.744 mls/hr 04/19/19 10:00 04/21/19 13:15 Dopamine 400 Mg/D5w 250 Ml IVPB 250 mls INF YUNG Administration 5 MCG/KG/MIN Vancomycin HCl 250 mg/ Sodium 100 mls @ 100 mls/hr 04/20/19 17:15 04/20/19 19 :26 Chloride IVPB 100 mls WILLCALL YUNG Administration Insulin Human Lispro 0 units 04/16/19 21:30 04/21/19 20:32 Humalog SC 2 unit .MILD SLIDING SCALE PRN Administration Mild Correctional Scale Labetalol HCl 10 mg 04/17/19 08:00 04/17/19 18:51 Normodyne SLOW IVP 10 mg Q15M PRN Administration BP >150/90 Lisinopril 40 mg 04/18/19 09:00 04/22/19 07:32 Zestril PO 40 mg BID YUNG Administration Nifedipine 30 mg 04/21/19 21:00 04/22/19 08:51 Procardia Xl PO 30 mg BID YUNG Administration Polyethylene Glycol 17 gm 04/18/19 09:00 04/22/19 07:32 Miralax PO Not Given QAM YUNG Sodium Chloride 10 ml 04/17/19 09:00 04/22/19 07:32 Flush - Normal Saline IVF 10 ml Q12HR YUNG Administration Sodium Chloride 10 ml 04/17/19 00:07 04/21/19 23:34 Flush - Normal Saline IVF 10 ml PRN PRN Administration Saline Flush - Exam General - other findings: irritable withdrawl to stimulation, not arousable or following commands ENT - other findings: ventricular drain in place Heart: RRR, no murmur, no gallops, no rubs Respiratory: CTAB, no wheezes, no rales, no ronchi Gastrointestinal: soft, non-distended, normal bowel sounds Psychiatric - other findings: responsive to pain only Hosp A/P (1) Acute intracranial hemorrhage Code(s): I62.9 - NONTRAUMATIC INTRACRANIAL HEMORRHAGE, UNSPECIFIED Status: Acute (2) ESRD (end stage renal disease) Code(s): N18.6 - END STAGE RENAL DISEASE Status: Chronic (3) Hypokalemia Code(s): E87.6 - HYPOKALEMIA Status: Resolved (4) Hypertension Code(s): I10 - ESSENTIAL (PRIMARY) HYPERTENSION Status: Chronic Qualifiers: Hypertension type: essential hypertension Qualified Code(s): I10 - Essential (primary) hypertension (5) Bradycardia Code(s): R00.1 - BRADYCARDIA, UNSPECIFIED Status: Acute Plan: resolved with dopamine yesterday, dopamine now weaned off due to HTN - Plan respiratory therapy Consults: Palliative Care Family considering withdrawl of care
--- NOTE | 2019-04-22 10:31 | PRG ---
DATE OF SERVICE: 04/22/2019 This is Elia Mclaughlin PA-C dictating a report for Wilfredo Lozano MD. 50-minute subsequent patient evaluation of which greater than 50% of the exam was spent in counseling and coordinating the patient's care, remainder of the exam was spent in review of the patient's medical records and formulation of treatment plan on Pia Mistry. Ms. 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 Neurologically, the patient has GCS 8 E2 M5 V1. Her family has discussed her care with Palliative Care and have elected to make her DNR status. I should note also on exam that the patient will briskly localize in the left leg greater than the left arm and weakly localizes in the right arm and leg. We are attempting to wean her EVD and she was set at 15 cm of water for the last 24 hours. We will obtain a head CT. Her drain output has remained less than 10 mL/hour, and her ICPs have ranged from 0 to 5. We will ask also that Neurology to see her and she really needs an EEG to evaluate for any seizure-like activity. We will follow up on the patient's head CT and continue to wean her EVD. Please call with any changes in the patient's neurologic status. I should note that the patient also had a preliminary growth of gram-positive cocci only in the nutrient broth, which may indicate contamination. We will follow up on this as well, but she remains on the vancomycin that is renally adjusted and she is also on cefepime. Please call with any changes in the patient's neurologic status. Otherwise, we will again continue to wean her EVD and follow up on head CT. Job ID: [id number]
--- NOTE | 2019-04-22 10:39 | PRG ---
DATE OF SERVICE: 04/22/2019 SUBJECTIVE: An 83-year-old female, being seen for end-stage renal disease. The patient remains intubated. OBJECTIVE: CONSTITUTIONAL: The patient is resting. VITAL SIGNS: Afebrile. Pulse 72, breathing 16, blood pressure 156/68. GENERAL APPEARANCE AND MENTAL STATUS: Fair. HEAD/NECK: Normocephalic. Atraumatic. EYES: EOMI. No deformity. EARS: Clear. No ulcers. NOSE: Intact. No lesions. MOUTH: Clear. No discharge. THROAT: Clear. No exudate. LUNGS: Clear. No crackles. CARDIAC: S1, S2. No rub. ABDOMEN: Benign. Bowel sounds positive. GENITALIA/RECTUM: Jarrett absent. BACK/EXTREMITIES: Edema 0+. NEUROLOGICAL: The patient is resting. SKIN: LYMPHATICS: LABORATORY DATA: Hemoglobin 8.9. Potassium is 4.6. ASSESSMENT AND PLAN: 1. Stage 6 chronic kidney disease, plan dialysis. 2. Hypertension, overall stable. 3. Anemia, stable. 4. Hypocalcemia, stable. Discussed risks versus benefits of dialysis. The family wants to pursue dialysis at this time. Overall prognosis remains poor based on underlying condition. If the patient's blood pressure drops or has any hemodynamics instability, we will stop dialysis. The above findings were discussed with the patient's nurse as well as her daughters. Job ID: [id number]
--- NOTE | 2019-04-22 10:43 | CT ---
Head CT without contrast: 04/22/2019 COMPARISON: 04/20/2019 HISTORY: Altered mental status TECHNIQUE: Axial CT imaging at 5 mm intervals from vertex through skull base without contrast FINDINGS: There is stable mild prominence of the third ventricle and the lateral ventricles. There is a focus of intraventricular gas in the frontal horn of the right lateral ventricle. There is minimal residual pneumocephalus in the right frontal region, improved. There is a ventriculostomy tub e in place, inserted via a right frontal approach, distal tip extending into the region of the third ventricle, stable. There is intraventricular hemorrhage layering within the posterior horns of bilateral lateral ventric les, right greater than left, stable. There is subtle hyperdensity within a few cortical sulci along the posterior aspect of the right frontal lobe including the posterior aspect of the right sylv navin fissure suggesting subarachnoid blood. There is opacification of the tympanic cavity and the left mastoid air cells. No displaced calvarial fracture. IMPRESSION: Stable ventriculomegaly and intraventricular hemorrhage. Probable small volume subarachno id blood in the posterior right frontal region/sylvian fissure.
--- NOTE | 2019-04-22 12:53 | PRG ---
DATE OF SERVICE: 04/22/2019 SERVICE: Pulmonary Medicine. INTERVAL HISTORY: The patient is doing fine from respiratory standpoint. Mentation batista, things have not improved any. She cannot provide any additional elements of the history. She is in a semi-comatose state. PHYSICAL EXAMINATION: VITAL SIGNS: Afebrile, pulse 99, blood pressure 106/73, respirations 23, saturation 98%, currently on 21% FiO2 and a PEEP of 5. GENERAL: The patient is intubated. She is on no sedation. HEENT: Normocephalic. Ventriculostomy tube is in place. LUNGS: Decent air entry with no prolonged expiratory phase. Minimal rhonchi are present. HEART: Tachycardic. Regular. ABDOMEN: Soft, nontender, nondistended. Bowel sounds are positive. MUSCULOSKELETAL: No cyanosis or clubbing. There is diffuse pitting throughout. LABORATORY DATA: WBC 12.0, hemoglobin 8.9, platelets 130,000. PH 7.44, pCO2 of 29, pO2 of 67. Sodium 133, creatinine 6.19 and up trending. Basic metabolic profile is otherwise unremarkable. Spinal fluid culture is growing gram-positive cocci. Urine culture is growing multiple species. IMAGING: CT brain demonstrates no interval change. Chest x-ray demonstrates increasing alveolar edema. There is also pulmonary vascular congestion present. Cardiomegaly is noted. ASSESSMENT: 1. Respiratory failure secondary to inability to protect airway. 2. Intraventricular hemorrhage, status post external ventricular drain. 3. End-stage renal disease. 4. Dementia. DISCUSSION AND PLAN: The patient's family is likely going to be transitioning over to comfort measures only. They have requested that I discontinue all additional laboratories, and pending studies. They would like to continue dialysis, but within 24 hours, if she is not making a functional neurologic recovery, they will likely want to transition over to comfort measures only. Pulmonary/Critical Care will continue to follow along in this location. Critical care time: 30 minutes. Job ID: [id number] MTDD
--- NOTE | 2019-04-22 12:58 | PRG ---
DATE OF SERVICE: 04/22/2019 Ms. Mistry is hospital day #6. She has an EVD in place. It has not been raised open at 15 cm of water. Her intracranial pressure continues to be 3 to 4 mmHg. Her output is approximately 5 to 6 mL an hour and sporadic. Her head CT now is stable that we have gotten this morning from when she was open at 10 cm of water. As such, there is no increase in ventricular caliber nor does there appear to be any intracranial hypertension by our data. We will raise her EVD to open at 20 cm of water. Neurologically, she has remained unchanged. Following the placement of the drain, there was an initial period of some improvement, but now she continues to localize in the right lower extremity and briskly withdraws in the left lower extremity and sluggishly in the right upper extremity. Her brainstem reflexes are intact. Her CSF is clear. There is a question of microbial growth in the CSF, but this was just in the broth and as such, it is not indicative of meningitis. Her laboratory values in the CSF are nonworrisome. At this point, I will ask for continuous EEG monitoring. We will plan to remove the drain hopefully in the next day or so should she continue to pass the wean process like to just make sure she is not having subclinical status epilepticus. Job ID: [id number]
[2019-04-22 14:28] LABS: Vancomycin, Trough 25.4 ug/mL
[2019-04-22] MEDS: Isosorbide Dinitrate 20 MG TAB PO SCH ×2 (14:44→16:08)
[2019-04-22 15:08] VITALS: BP 170/60
[2019-04-22] MEDS: Cefepime 1 GM in Sodium Chloride 0.9% 100 ML IVPB SCH (16:08)
[2019-04-22] MEDS ORDERED: levETIRAcetam In NaCl (Iso-Os) 1,500 MG in Premix Bag 1 BAG IVPB SCH (16:15)
[2019-04-22] MEDS: DOPamine 400 MG/D5W 250 ML 250 ML IVPB SCH (18:03)
--- NOTE | 2019-04-22 19:06 | PDOC.EVN ---
Event Note - Event Note Event Note: I was called to the bedside after patient and family were very distraught. Earlier today patient had EEG and was noted to be in status epilepticus. Started on Propofol but was noted to persist. Given Dilantin. Later as dialysis was finishing up patient became bradycardic into the 30s, dopamine was restarted however the bradycardia worsened, progressed to asystole. No spontaneous breathing activity on the vent. Family were grieving yesterday after hearing that patient was likely to , but today after hearing the neurosurgical plan they became hopeful again that maybe she would recover, and so were doubly distraught when she suddenly passed. I spent 20 minutes answering the families questions about the patients care, the disease process, and likely mechanisms for her passing. Provided comfort and offered to answer any further questions they might have.
--- NOTE | 2019-04-23 00:14 | CON ---
DATE OF CONSULTATION: 04/22/2019 CONSULTING PHYSICIAN: Hospitalist Service. IMPRESSION: 1. Subclinical status epilepticus secondary to intraventricular hemorrhage. 2. History of dementia. 3. End-stage renal disease, on dialysis. 4. Diabetes. 5. Hypertension. PLAN: 1. Loading dose of both Keppra and Dilantin this evening. 2. Propofol drip for the evening. 3. Turn off Propofol tomorrow if determined if the patient is still in status epilepticus. If she remains in status epilepticus despite these efforts, I think that her prognosis is hopeless. HISTORY OF PRESENT ILLNESS: Ms. Mistry is an 83-year-old female with the above-noted medical problems. She is a dialysis patient. She presented with some mental status changes. She was subsequently found to have an intraventricular hemorrhage on April 17. Neurosurgery was consulted. She subsequently had a shunt placed for decompression of her ventriculomegaly. She had a deterioration in her mental status over the weekend. She was subsequently placed on EEG today and found to be in generalized status epilepticus. She has been on Keppra for the last 2 days. We administered some extra loading dose today and I have ordered Dilantin as a loading dose as well. PAST MEDICAL HISTORY: As noted above. ALLERGIES: ADHESIVE TAPE. SOCIAL HISTORY: Unremarkable. FAMILY HISTORY: Unremarkable. REVIEW OF SYSTEMS: Not obtainable. MEDICATION LIST: Reviewed. PHYSICAL EXAMINATION: GENERAL: She is an elderly lady, on ventilatory support. VITAL SIGNS: Blood pressure 156/54, pulse 75 with a saturation of 100%. HEENT: Pupils are equal. Eyes appear conjugate. There is no spontaneous eye opening. She has some intermittent jaw movements. NEUROLOGIC: She has some responsiveness to stimulation of the extremities. There is no tonoclonic activity present. SUMMARY: The clinical picture is quite grave at this point. I will see how she responds to treatment. Job ID: [id number]
--- NOTE | 2019-04-23 15:15 | DIS ---
DATE OF ADMISSION: 04/16/2019 DATE OF DISCHARGE: 04/22/2019 SUMMARY: REASON FOR ADMISSION: Intracranial hemorrhage. CAUSE OF : Spontaneous intracranial hemorrhage secondary to longstanding diabetes, high blood pressure, and end-stage renal disease, on dialysis. The patient has remote history of smoking, quit 10 years ago, possibly related to the cause of . SUMMARY OF HOSPITAL COURSE: This was an 83-year-old female with a history of diabetes, hypertension, and end-stage renal disease, on dialysis, also with dementia. She has had a history of previous stroke as well with previous tPA. The patient presented from the dialysis unit because she had some altered mental status and her eye was drooping. The patient was found to have a subarachnoid bleed with complications of hydrocephalus. Neurosurgery did evaluate her. They put on antibiotics for possible infection, and they recommended strict control of blood pressure, and then had to place on a ventricular drain. Over the course of patient's hospitalization, she never regained consciousness. She had multiple episodes of spiking blood pressure when appropriate blood pressure medications were given to bring this down. Then she would drop bradycardic. At which point, dopamine had to be instituted to bring her heart rate back up. This was a struggle the last couple of days of her hospitalization. The patient was also evaluated by Neurology, Dr. Juarez. He did an EEG the day of her . This showed persistent status epilepticus. In spite of the Keppra that she was already on, he did wonder what with Dilantin along with giving her some propofol; however, she continued to have the epileptic activity on her EEG. In the evening of the day she passed, the patient was getting dialysis, and after that, her heart rate thelma down. Dopamine was reinstituted. Her heart rate did not recover, and she went into asystole; at which point, she passed. Time of was 1818 hours on 04/22/2019, and her body was discharged to the [facility]. Job ID: [id number]
--- NOTE | 2019-04-28 17:17 | EKG ---
Test Reason : Blood Pressure : / mmHG Vent. Rate : 038 BPM Atrial Rate : 038 BPM P-R Int : 000 ms QRS Dur : 100 ms QT Int : 604 ms P-R-T Axes : 000 049 096 degrees QTc Int : 480 ms junctional rhythm Left ventricular hypertrophy with repolarization abnormality Abnormal ECG When compared with ECG of 16-APR-2019 13:00, (Unconfirmed) Current undetermined rhythm precludes rhythm comparison, needs review Nonspecific T wave abnormality now evident in Lateral leads Confirmed by FREDRICK QUINTANA M.D. ([id number] on 04/28/2019 5:17:06 PM Referred By: BULL Confirmed By:FREDRICK QUINTANA M.D.
== END 2019-04-22 22:00 | disposition expired | DRG 23 ==
LOC: ERS 12:40 → 2SE 17:31 → CCU 04-17 18:29
PROVIDERS: ADMIT Internal Medicine; ATTEND Internal Medicine
PROC: 009U3ZX Drainage of Spinal Canal, Percutaneous Approach, Diagnostic (ICD-10-PCS; principal; 2019-04-16)
PROC: 009630Z Drainage of Cerebral Ventricle with Drainage Device, Percutaneous Approach (ICD-10-PCS; 2019-04-19)
PROC: 0BH17EZ Insertion of Endotracheal Airway into Trachea, Via Natural or Artificial Opening (ICD-10-PCS; 2019-04-19)
PROC: 5A1945Z Respiratory Ventilation, 24-96 Consecutive Hours (ICD-10-PCS; 2019-04-19)
PROC: 5A1D70Z Performance of Urinary Filtration, Intermittent, Less than 6 Hours Per Day (ICD-10-PCS; 2019-04-22)
DX: I61.8 Other nontraumatic intracerebral hemorrhage (principal); N18.6 End stage renal disease; G92 Toxic encephalopathy; J96.90 Respiratory failure, unspecified, unspecified whether with hypoxia or hypercapnia; I12.0 Hypertensive chronic kidney disease with stage 5 chronic kidney disease or end stage renal disease; N39.0 Urinary tract infection, site not specified; I16.1 Hypertensive emergency; G95.89 Other specified diseases of spinal cord; G91.9 Hydrocephalus, unspecified; M50.01 Cervical disc disorder with myelopathy, high cervical region; E11.22 Type 2 diabetes mellitus with diabetic chronic kidney disease; Z99.2 Dependence on renal dialysis; F03.90 Unspecified dementia, unspecified severity, without behavioral disturbance, psychotic disturbance, mood disturbance, and anxiety; E87.6 Hypokalemia; Z88.8 Allergy status to other drugs, medicaments and biological substances; Z91.048 Other nonmedicinal substance allergy status; Z87.891 Personal history of nicotine dependence; G58.8 Other specified mononeuropathies; G93.89 Other specified disorders of brain; Z91.81 History of falling; R00.1 Bradycardia, unspecified; E83.51 Hypocalcemia; Z51.5 Encounter for palliative care; R29.704 NIHSS score 4; R40.2362 Coma scale, best motor response, obeys commands, at arrival to emergency department; R40.2142 Coma scale, eyes open, spontaneous, at arrival to emergency department; R40.2252 Coma scale, best verbal response, oriented, at arrival to emergency department; G40.901 Epilepsy, unspecified, not intractable, with status epilepticus; Z66 Do not resuscitate; Z86.73 Personal history of transient ischemic attack (TIA), and cerebral infarction without residual deficits; D63.1 Anemia in chronic kidney disease
CPT/HCPCS: 36415; 36416; 51701; 62270; 70450; 70496; 70498; 70551; 71045; 72141; 80048; 80053; 80202; 81003; 81015; 82805; 82945; 83605; 84157; 84484; 85025; 85060; 87070; 87086; 87205; 87340; 88112; 89051; 90935; 93005; 93010; 93970; 94002; 94003; 95816; 95819; 96365; 96367; 96375; A4353; G0257; J0360; J0461; J0690; J0692; J1265; J1953; J2704; J3370; J3480; J3490; J7050; Q2009; Q9967